=== PATIENT | male | born 1945 | race Caucasian/White ===

== ENCOUNTER → 2018-03-28 07:58 | Outpatient (CLI) | payer MEDICARE, OTHER, SELFPAY ==
--- NOTE | 2018-03-28 10:20 | PM.TREADMILL ---
Cardiac Stress Test Report Referral & Results Date Patient Seen: 03/28/18 Indication: Dizziness Rest ECG: Extended runs of ventricular bigeminy trigeminy as well as multifocal PVCs Procedure Note: After both written and verbal informed consent the patient had an IV started by the diagnostic imaging RN and then was hooked up to the treadmill monitoring system. The patient was placed on the treadmill. Initially a Connor protocol was attempted but patient was unable to keep up and heart rate was not increasing so this was converted to a Lexiscan. The treadmill was adjusted to 1 mile an hour with no elevation and was then injected with the [place] scan material. The Cardiolite was then immediately administered. The patient spent an additional 2-3 minutes on the treadmill before being returned to the [facility] in the supine position. The patient had a normal response to all infused materials. Patient had extended runs of ventricular bigeminy and trigeminy as well as multifocal PVCs and ventricular couplets and triplets and a run of 4. Impression: Dysrhythmia as above Perfusion imaging to be reported separately Please note: Actual ECG tracings can be found in the PACS system.
--- NOTE | 2018-03-31 10:42 | DI.NM.S_ITS ---
DATE OF SERVICE: 03/28/2018 PROCEDURE: Pharmacological perfusion stress study. INDICATIONS: Frequent PVCs with underlying coronary artery disease, status post bypass surgery; hypertension; hyperlipidemia; diabetes mellitus. RADIOPHARMACEUTICAL: 25.6 mCi technetium-99m Myoview IV was injected at stress and 24.6 mCi technetium-99m Myoview IV was injected at rest. CARDIAC STRESS: Patient underwent IV Lexiscan perfusion study under the supervision of an attending staff using standard IV Lexiscan as per protocol. Patient remained hemodynamically stable. Baseline EKG revealed sinus rhythm with intermittent PVCs. During Lexiscan infusion, patient continued to have frequent PVCs in the form of bigeminies, trigeminies, sometimes couplets. It was monomorphic as well as polymorphic. I don't see any sustained ventricular tachycardia. There was some nonspecific ST-T. RAW DATA: There was increased subdiaphragmatic activity. GATED STUDY: Adequate gated study could not be performed. Hence, difficult to comment upon LV function. However, there was no transient ischemic dilatation. TID ratio is 1.04, which is within normal limits. Lung/heart ratio is 0.29, which is within normal limits. MYOCARDIAL PERFUSION SCAN: Stress supine, resting supine, and stress prone images were compared to each other. It appears to be the patient has predominantly fixed [id number]-[id number] sized mildly decreased perfusion of base- to-mid inferolateral wall without any significant reversible ischemia. CONCLUSION: This is an abnormal myocardial perfusion study consistent with [id number] sized mild infarction of base-to-mid inferolateral wall without any reversible ischemia. Patient has frequent premature ventricular contractions (PVCs) which are monomorphic as well as polymorphic without any sustained ventricular tachycardia. Gated images could not be performed. Enio Copeland - ORTEGA/beti/ab doc#: [id number]/job#: [id number] dd: 03/29/2018 12:41:00 dt: 03/31/2018 10:23:00 DICTATING MD/COPIES TO: Car Shaver MD COPIES MNE: RIKKI
== END ==
PROVIDERS: Visit Provider Internal Medicine Cardiovascular Disease
DX: R42 Dizziness and giddiness (principal); I49.3 Ventricular premature depolarization
CPT/HCPCS: 78452; 93016; 93017; 93018; A9502; J2785

== ENCOUNTER → 2018-03-29 09:24 | Outpatient (CLI) | payer MEDICARE, OTHER, SELFPAY ==
--- NOTE | 2018-03-29 | DI.ECHO.S_ITS ---
[facility]---------+ [facility] +---------+ : : [address] : [place] : : : : [id number] : : : : Phone: [phone]+ Echocardiogram Report + + :Name: KEILY LEVY Study Date: 03/29/2018 Height: 70 in : :[facility] Exam Location: IS Weight: 228 lb : : Gender: Male BSA: 2.2 m2 : :: 1945 Age: 72 yrs BP: 132/70 mmHg: :Reason For Study: Dizziness : :Ordering Physician: Sd : :Sivakumar Performed By: Laure Rosario : :Referring: SD FONTENOT : + + Interpretation Summary The left ventricle is mildly dilated. Left ventricular systolic function is normal without focal wall motion abnormalities. The ejection fraction is estimated to be 55-60%. The right ventricle is mildly dilated. The right ventricular systolic function is normal. The right ventricular systolic pressure is estimated at 33 mmHg assuming a right atrial pressure of 8 mm Hg. The left atrium is severely dilated. The right atrium is moderately dilated. There is no significant valvular heart disease. The ascending aorta is mildly enlarged. The patient had frequent PVCs during the exam. Procedure: A two-dimensional transthoracic echocardiogram with color flow and Doppler was performed. The study quality was technically adequate. There is no prior echocardiogram noted for this patient. The patient had frequent PVCs during the exam. Left Ventricle: The left ventricle is mildly dilated. There is mild-moderate concentric left ventricular hypertrophy. Left ventricular systolic function is normal without focal wall motion abnormalities. The ejection fraction is estimated to be 55-60%. Assessment of diastolic parameters indicates normal left ventricular diastolic function and normal filling pressures. Right Ventricle: The right ventricle is mildly dilated. The right ventricular systolic function is normal. Atria: The left atrium is severely dilated. The right atrium is moderately dilated. The interatrial septum is intact with no evidence for an atrial septal defect. Mitral Valve: The mitral valve leaflets appear mildly thickened, but open well. There is trace mitral regurgitation. Aortic Valve: The aortic valve is trileaflet. The aortic valve opens well. There is trace aortic regurgitation. Tricuspid Valve: The tricuspid valve leaflets are thin and pliable. There is mild tricuspid regurgitation. The right ventricular systolic pressure is estimated at 33 mmHg assuming a right atrial pressure of 8 mm Hg. Pulmonic Valve: The pulmonic valve is normal in structure and function. There is a trace or physiologic amount of pulmonic regurgitation. There is no significant valvular heart disease. Great Vessels: The aortic root is normal size. The ascending aorta is mildly enlarged. The IVC is of normal diameter and collapses less than 50% with a sniff. This suggests a right atrial pressure of 8 mm Hg. Pericardium/ Pleura There is no pericardial effusion. There is no pleural effusion. MMode/2D Measurements & Calculations LVIDd: 6.0 cm LVOT diam: 2.3 cm LVIDs: 4.2 cm Ao root diam: 3.2 cm FS: 29.9 % asc Aorta Diam: 3.7 cm EPSS: 1.2 cm Ao Arch Diam (Prox Trans): 2.7 cm IVSd: 1.4 cm LVPWd: 1.6 cm LV carrasquillo. diameter/BSA (cm/m^2): 2.7 LV sys. diameter/BSA (cm/m^2): 1.9 LA A2 area: 26.5 cm2 RA long axis: 5.9 cm LA A4 area: 31.4 cm2 RA area: 21.7 cm2 LA length (vol): 6.1 cm RA vol: 68.1 ml LA vol: 115.8 ml RA : 30.9 ml/m2 LA vol index: 52.5 ml/m2 IVC diam: 2.2 cm RVD1 (basal): 4.2 cm TAPSE: 2.4 cm Doppler Measurements & Calculations Ao V2 max: 134.2 cm/sec LVOT Max Loco: 103.2 cm/sec Ao V2 mean: 88.1 cm/sec LV V1 max P.3 mmHg Ao max P.2 mmHg LV V1 VTI: 21.6 cm Ao mean P.6 mmHg KYLE(I,D): 2.9 cm2 Ao V2 VTI: 29.8 cm KYLE(V,D): 3.1 cm2 sev ratio: 0.72 KYLE indexed to BSA (cm^2/m^2): 1.3 MV E max loco: 58.8 cm/sec TR max loco: 250.3 cm/sec MV A max loco: 43.0 cm/sec TR max P.1 mmHg MV E/A: 1.4 PA V2 max: 74.7 cm/sec Med Peak E' Loco: 4.2 cm/sec PA V2 mean: 53.3 cm/sec E/E' med: 14.0 PA mean P.3 mmHg Lat Peak E' Loco: 13.4 cm/sec PA pr(Accel): 29.1 mmHg E/E' lat: 4.4 E/e' average: 9.2 MV dec time: 0.33 sec Reading Physician:LANNY
== END ==
PROVIDERS: Visit Provider Internal Medicine Cardiovascular Disease
DX: I07.1 Rheumatic tricuspid insufficiency (principal); R42 Dizziness and giddiness
CPT/HCPCS: 93306

== ENCOUNTER → 2018-10-22 10:07 | Outpatient (CLI) | payer MEDICARE, OTHER, SELFPAY ==
[2018-10-22 12:40] LABS: BUN Creatinine Ratio 19.1 (6-22); Blood Urea Nitrogen 21 mg/dL (9-20); Calcium 10.1 mg/dL (8.4-10.2); Carbon Dioxide 30 mmol/L (22-32); Chloride 100 mmol/L (98-107); Estimated Glomerular Filt Rate > 60.0 mL/min (>60); Glucose 111 mg/dL (80-110); HEMOLYSIS < 15 (0-50); Potassium 4.9 mmol/L (3.4-5.1); Sodium 142 mmol/L (137-145)
== END ==
PROVIDERS: Visit Provider Internal Medicine Cardiovascular Disease
DX: I10 Essential (primary) hypertension (principal)
CPT/HCPCS: 36415; 80048

== ENCOUNTER → 2019-02-13 07:27 | Outpatient (CLI) | payer MEDICARE, OTHER, SELFPAY ==
--- NOTE | 2019-02-13 07:32 | DI.MRI.S_ITS ---
PROCEDURE: MR LUMBAR SPINE WO CON INDICATIONS: axial low back pain with leg pain TECHNIQUE: Noncontrast sagittal T1 spin echo and T2 fast echo, sagittal STIR, axial T1 and T2 fast spin echo through the lumbar spine. In cases with scoliosis, additional coronal T2 fast spin echo may be performed. COMPARISON: [facility] Outside Film, MR, MR LUMBAR SPINE WITHOUT CONTRAST, 10/29/2017, 11:01. FINDINGS: Image quality: Excellent. Alignment and Curvature: There is trace retrolisthesis of L1 on L2, L2 on L3, trace anterolisthesis of L3 on L4. Bone Marrow: Marrow is of normal overall signal. Moderate reactive endplate changes are present at L1-L2. Focus of increased T1 and T2 signal is present within the L4 vertebral body most suggestive of hemangioma. No acute vertebral body compression fractures. Spinal Cord: Conus medullaris terminates at the L1 level. Visualized cord demonstrates normal signal and size. Paraspinous Soft Tissues: No paravertebral masses. Discs: Severe desiccation is present at L1-L2, mild to moderate throughout the remainder of the lumbar spine. T12-L1: Mild disc bulge with minimal compromise of the right lateral recess. Moderate right foraminal narrowing. L1-L2: Mild disc bulge including a prominent left lateral and foraminal component. There is moderate spinal stenosis with moderate bilateral foraminal narrowing. Facet and ligamentum flavum hypertrophy are present. Minimal interval progression. L2-L3: Mild disc bulge with mild spinal stenosis. Moderate to severe left and moderate right foraminal narrowing with facet and ligamentum flavum hypertrophy. Minimal interval progression. L3-L4: Mild disc bulge with moderate to severe spinal stenosis. Severe bilateral foraminal narrowing with facet and ligamentum flavum hypertrophy. Stable compared to prior exam. L4-L5: Mild disc bulge with moderate to severe spinal stenosis. There is severe bilateral foraminal narrowing with nerve root flattening particularly within the subarticular recesses, left greater than right. Facet and ligamentum flavum hypertrophy are present. Stable compared to prior exam. L5-S1: Mild disc bulge with moderate spinal stenosis. Moderate to severe right and mild left foraminal narrowing with facet and ligamentum flavum hypertrophy. Minimal interval progression. IMPRESSION: 1. Multilevel degenerative changes demonstrate areas of interval progression as above. 2. Multilevel spinal stenosis most severe at L3-4 and L4-5 secondary to disc bulge with intravenous facet/ligament flavum arthropathy. 3. Multilevel foraminal narrowing, most severe at L3-4 and L4-5 predominant secondary to facet arthropathy. Dictated by: Alma Pham M.D. on 02/13/2019 at 11:43 Approved by: Alma Pham M.D. on 02/13/2019 at 11:54
== END ==
PROVIDERS: PCP Nurse Practitioner; Visit Provider Registered Nurse
DX: M54.5 Low back pain (principal); M79.605 Pain in left leg; M79.604 Pain in right leg; M47.26 Other spondylosis with radiculopathy, lumbar region; M47.27 Other spondylosis with radiculopathy, lumbosacral region; M48.061 Spinal stenosis, lumbar region without neurogenic claudication; M48.07 Spinal stenosis, lumbosacral region; M51.16 Intervertebral disc disorders with radiculopathy, lumbar region; M51.17 Intervertebral disc disorders with radiculopathy, lumbosacral region
CPT/HCPCS: 72148

== ENCOUNTER 2019-02-18 07:55 | Outpatient (CLI) | payer MEDICARE, OTHER, SELFPAY ==
[2019-02-18] VITALS (9 sets, daily range): BP systolic 125–184; BP diastolic 65–109; PULSE 60–94; RESP 16–18; TEMP 36.5; O2SAT 95–100
--- NOTE | 2019-02-18 07:58 | DI.RAD.S_ITS ---
PROCEDURE: PAIN L/SI FACET INJ/BLK 1STL INDICATIONS: 31098, [id number] Bilateral L4/5, L5/S1 Facet Joint Injection FINDINGS: Fluoroscopic spot filming was performed to verify placement of spinal needles at the L4-L5 and L5-S1 level(s). Appropriate location(s) of the needle tip(s) was confirmed by injection of iodinated contrast. Dictated by: Navjot Bird M.D. on 02/18/2019 at 11:57 Approved by: Navjot Bird M.D. on 02/18/2019 at 12:00
[2019-02-18] MEDS: MIDAZOLAM 5 MG/5 ML VIAL IV (09:24)
[2019-02-18] MEDS: fentaNYL 100 MCG/2 ML INJ 50 MCG IV (09:25)
[2019-02-18] MEDS: BUPIVACAINE 0.5% (PF) VIAL 2 ML INJ (09:31)
[2019-02-18] MEDS: IOPAMIDOL 15 ML VIAL 3 ML INJ (09:33)
[2019-02-18] MEDS: BETAMETHASONE 30 MG/5 ML MDV 12 MG INJ (09:34)
--- NOTE | 2019-02-18 09:37 | PC.NURSE ---
ASSISTING PT OFF TABLE AND TRANSPORITNG TO POST PROC AREA IN STABLE CONDITION
--- NOTE | 2019-02-18 09:44 | PM.PROC.1 ---
Procedures Date/Time Date of procedure: 02/18/19 Time of procedure: 09:44 General Procedure description: PREOP DIAGNOSIS 1. FACET ARTHROPATHY 2. AXIAL LBP 3. MULTILEVEL DDD POST OP DIAGNOSIS 1. FACET ARTHROPATHY 2. AXIAL LBP 3. MULTILEVEL DDD PROCEDURES 1. FLUORSCOPICALLY GUIDED CONTRAST CONTROLLED FACET JOINT INJECTIONS BILATERAL L4/5, L5/S1 PHYSICIAN: Dave Castorena, DO INDICATIONS Enio is referred by DEEDEE Marquis for treatment of Axial LBP FINDINGS Multilevel Facet Arthropathy with Clinically significant axial LBP DESCRIPTION OF PROCEDURE Fluoroscopically guided, contrast-controlled bilateral L4/5, L5/S1 facet joint injections. Following review of allergy and review of potential side effects and complications, including, but not necessarily limited to, infection, allergic reaction, local tissue breakdown, stroke, temporary or permanent nerve injury, paralysis, and possible , the patient indicated that the patient understood and agreed to proceed. An informed consent document was signed by the patient, witnessed by a nurse, and placed in the patient's chart. Additionally, other treatment options including medications, modalities, and physical therapy were reviewed with the patient. After review of previous anaesthesic history and IV conscious sedation the patient was deemed safe to proceed with todays procedure with IV conscious sedation as ASA class II designation. Safety time-out was performed to confirm patient ID, procedure to be performed and site of procedure. IV sedation was accomplished with a combination of 2mg of Versed and 50mcg of Fentanyl was administered by the RN after DO order, titrated to patient comfort during the course of the procedure while the patient remained responsive to all verbal commands In the prone position, following sterile prep and drape of the lumbar region, the posterior aspect of the L4/5, L5/S1 facet joints were identified fluoroscopically. The skin was anesthetized via a 25-gauge 1.5-inch needle with 1% lidocaine solution into the corresponding facet joints. At this point, a 22-gauge 3.5-inch spinal needle was atraumatically introduced and advanced under fluoroscopic guidance into the corresponding facet joints. Following negative aspiration, injections of approximately 0.2-cc of Isovue 200 confirmed interarticular placement without vascular uptake. The identical procedure was then performed at the L4/5, L5/S1 facet joints on the left. Radiological data, including multiple fluoroscopic views of the lumbosacral spine, reveal a spinal needle at the L4/5, L5/S1 facet joints bilaterally. Subsequent views show flow of contrast material both superiorly and inferiorly within the joint space without vascular or intrathecal uptake. At this point, a total of 0.5 cc including a mixture of 0.25cc Marcaine and 0.25cc betamethasone was injected without complication into each of the corresponding facet joints. The patient tolerated the procedure well without signs or symptoms of complications prior to transfer to the recovery area continued monitoring without incident. The patient was then transferred to the recovery area where they were observed for an appropriate period of time after the injection. The patient reported a VAS score of 7 prior to the procedure and a post-procedure VAS of 0. Total Fluoroscopy Time: 20.3 seconds Total Conscious Sedation Time: 24min POST OP INSTRUCTIONS The patient was provided a Pain Log to continue to record their response to the target-specific procedure prior to follow-up visit with their referring physician. Additionally, specific post-injection care instructions and a contact number to our office were provided if concerns arise regarding possible complications associated with the procedure are suspected. Dave Castorena DO Complications: none
--- NOTE | 2019-02-18 09:45 | PC.NURSE ---
Pt returned awake and alert via wheelchair, able to get from w/c to chair with standby assist. Resumed monitoring from Tameka LUEVANO.
--- NOTE | 2019-02-18 09:47 | P.PCN_ITS ---
Procedures Date/Time Date of procedure: 02/18/19 Time of procedure: 09:44 General Procedure description: PREOP DIAGNOSIS 1. FACET ARTHROPATHY 2. AXIAL LBP 3. MULTILEVEL DDD POST OP DIAGNOSIS 1. FACET ARTHROPATHY 2. AXIAL LBP 3. MULTILEVEL DDD PROCEDURES 1. FLUORSCOPICALLY GUIDED CONTRAST CONTROLLED FACET JOINT INJECTIONS BILATERAL L4/5, L5/S1 PHYSICIAN: Dave Castorena, DO INDICATIONS Enio is referred by DEEDEE Marquis for treatment of Axial LBP FINDINGS Multilevel Facet Arthropathy with Clinically significant axial LBP DESCRIPTION OF PROCEDURE Fluoroscopically guided, contrast-controlled bilateral L4/5, L5/S1 facet joint injections. Following review of allergy and review of potential side effects and complications, including, but not necessarily limited to, infection, allergic reaction, local tissue breakdown, stroke, temporary or permanent nerve injury, paralysis, and possible , the patient indicated that the patient understood and agreed to proceed. An informed consent document was signed by the patient, witnessed by a nurse, and placed in the patient's chart. Additionally, other treatment options including medications, modalities, and physical therapy were reviewed with the patient. After review of previous anaesthesic history and IV conscious sedation the patient was deemed safe to proceed with todays procedure with IV conscious sedation as ASA class II designation. Safety time-out was performed to confirm patient ID, procedure to be performed and site of procedure. IV sedation was accomplished with a combination of 2mg of Versed and 50mcg of Fentanyl was administered by the RN after DO order, titrated to patient comfort during the course of the procedure while the patient remained responsive to all verbal commands In the prone position, following sterile prep and drape of the lumbar region, the posterior aspect of the L4/5, L5/S1 facet joints were identified fluoroscopically. The skin was anesthetized via a 25-gauge 1.5-inch needle with 1% lidocaine solution into the corresponding facet joints. At this point, a 22- gauge 3.5-inch spinal needle was atraumatically introduced and advanced under fluoroscopic guidance into the corresponding facet joints. Following negative a spiration, injections of approximately 0.2-cc of Isovue 200 confirmed interarticular placement without vascular uptake. The identical procedure was then performed at the L4/5, L5/S1 facet joints on the left. Radiological data, including multiple fluoroscopic views of the lumbosacral spine, reveal a spinal needle at the L4/5, L5/S1 facet joints bilaterally. Subsequent views show flow of contrast material both superiorly and inferiorly within the joint space without vascular or intrathecal uptake. At this point, a total of 0.5 cc including a mixture of 0.25cc Marcaine and 0.25cc betamethasone was injected without complication into each of the corresponding facet joints. The patient tolerated the procedure well without signs or symptoms of complications prior to transfer to the recovery area continued monitoring without incident. The patient was then transferred to the recovery area where they were observed for an appropriate period of time after the injection. The patient reported a VAS score of 7 prior to the procedure and a post- procedure VAS of 0. Total Fluoroscopy Time: 20.3 seconds Total Conscious Sedation Time: 24min POST OP INSTRUCTIONS The patient was provided a Pain Log to continue to record their response to the target-specific procedure prior to follow-up visit with their referring physician. Additionally, specific post-injection care instructions and a contact number to our office were provided if concerns arise regarding possible complications associated with the procedure are suspected. Dave Castorena DO Complications: none
== END 2019-02-18 10:14 ==
PROVIDERS: PCP Nurse Practitioner; Visit Provider Physical Medicine & Rehabilitation
DX: M47.817 Spondylosis without myelopathy or radiculopathy, lumbosacral region (principal); M47.816 Spondylosis without myelopathy or radiculopathy, lumbar region; M54.5 Low back pain; M51.36 Other intervertebral disc degeneration, lumbar region; M51.37 Other intervertebral disc degeneration, lumbosacral region
CPT/HCPCS: 64493; 64494; 99152; 99153; J0702; J2250; J3010

== ENCOUNTER 2019-06-19 08:00 | Outpatient (CLI) | payer MEDICARE, OTHER, SELFPAY ==
[2019-06-19] VITALS (7 sets, daily range): BP systolic 86–150; BP diastolic 46–98; PULSE 53–84; RESP 16–18; TEMP 36.1; O2SAT 95–100
--- NOTE | 2019-06-19 08:02 | DI.RAD.S_ITS ---
PROCEDURE: PAIN L/S FACET INJ/BLK 1ST YANETH COMPARISON: None. INDICATIONS: SPONDYLOSIS FINDINGS: 6 intraoperative fluoroscopy images demonstrate needle placement at L3 and L4, L5 and S1 bilaterally. IMPRESSION: Fluoroscopy assistance for needle placement. Dictated by: Elmer Earl M.D. on 06/19/2019 at 17:39 Approved by: Elmer Earl M.D. on 06/19/2019 at 17:41
[2019-06-19] MEDS: MIDAZOLAM 5 MG/5 ML VIAL IV (10:10)
[2019-06-19] MEDS: fentaNYL 100 MCG/2 ML INJ 50 MCG IV (10:11)
[2019-06-19] MEDS: IOPAMIDOL 15 ML VIAL 3 ML INJ (10:17)
[2019-06-19] MEDS: LIDOCAINE 1% 20 ML 10 ML INJ (10:17)
[2019-06-19] MEDS: BETAMETHASONE 30 MG/5 ML MDV 12 MG INJ (10:18)
[2019-06-19] MEDS: BUPIVACAINE 0.5% (PF) VIAL 5 ML INJ (10:18)
--- NOTE | 2019-06-19 10:23 | PC.NURSE ---
AWARE OF LOW BP. PT STATES I FEEL FINE. WILL REPEAT BP BEFORE HAVING PT STEP OFF PROC TABLE.
--- NOTE | 2019-06-19 10:30 | PM.PROC.1 ---
Procedures Date/Time Date of procedure: 06/19/19 Time of procedure: 10:30 General Procedure description: Procedure description: 1. FACET ARTHROPATHY PROCEDURES: 1. BILATERAL- L4, L5 and S1 MB BLOCKS PHYSICIAN: DO SANTIAGO Membreno Enio is referred by DEEDEE Marquis for treatment of Bilateral Axial LBP. DESCRIPTION OF PROCEDURE Fluoroscopically guided, contrast-controlled bilateral L4, L5 and S1 medial branch blocks with 0.5cc of 0.5% Marcaine. Following review of allergy and review of potential side effects and complications, including, but not necessarily limited to, infection, allergic reaction, local tissue breakdown, nerve injury, paralysis, stroke and possible , the patient indicated that the patient understood and agreed to proceed. An informed consent document was signed by the patient, witnessed by a nurse, and placed in the patient's chart. After review of previous anaesthesic history and IV conscious sedation the patient was deemed safe to proceed with todays procedure with IV conscious sedation as ASA class II designation. Safety time-out was performed to confirm patient ID, procedure to be performed and site of procedure. IV sedation was accomplished with a combination of 2mg of Versed and 50mcg of Fentanyl was administered by the RN after DO order, titrated to patient comfort during the course of the procedure while the patient remained responsive to all verbal commands In the prone position, following sterile prep and drape of the lumbar region, the right L4, L5 and S1 anatomical location of the medial branch of the dorsal ramus was identified fluoroscopically. Subsequently an anesthetic skin wheal using 1% lidocaine solution was initiated at each of the anatomical spots. Subsequently then a 22-gauge 3.5-inch spinal needle was atraumatically introduced and advanced under fluoroscopic guidance at each of the corresponding sites at the right L4, L5 and S1 MB. After negative aspiration, 0.2 cc of Isovue 200 was injected, confirming placement without vascular or intrathecal uptake. Subsequently then 0.5 cc of 0.5% Marcaine solution was injected at each of the corresponding sites at the right L4, L5 and S1 medial branch locations. The identical procedure was replicated on the left. The patient tolerated the procedure well without signs or symptoms of complications prior to transfer to the recovery area continued monitoring without incident. Post-procedure, the patient was monitored initiating provocative activities to measure the amount of relief from block of the facetogenic pain. The patient reported a VAS of 7 prior to the procedure and a post-procedure VAS of 1. It has been a pleasure to assist in the diagnostic and therapeutic care of your patient. Total Fluoroscopy Time: 24.8 seconds Total Conscious Sedation Time: 24min POST OP INSTRUCTIONS The patient was provided with a Pain Log to complete over the next several hours and subsequent days prior to the patient's follow up with the ordering physician. If the patient has blind eyeletter relief to the solution applied, then they may be a candidate for medial branch rhizotomy. The patient is aware, was provided, once again, with a Pain Log and will follow up with the referring physician for review and clinical correlation Dave Castorena DO Complications: none
--- NOTE | 2019-06-19 10:30 | PC.NURSE ---
BP AFTER PROC WHILE STILL SITTING ON TABLE 106/67 AND PT A&OX4. TRANSPORTIJG TO POST PROC ARE IN STABLE CONDITION.
--- NOTE | 2019-06-19 17:52 | PC.NURSE ---
Late entry: discharge note--Patient arrived for post procedure monitoring. VSS and O2 Sat WNL on RA. No complaints of pain. 0. Discharge instructions reviewed with good understanding by patient and spouse. Able to stand and transfer to wheelchair without difficulties. Discharged to home w/c to car at 1050
== END 2019-06-19 10:50 ==
LOC: RAD 08:01
PROVIDERS: PCP Nurse Practitioner; Visit Provider Physical Medicine & Rehabilitation
DX: M47.816 Spondylosis without myelopathy or radiculopathy, lumbar region (principal); M47.817 Spondylosis without myelopathy or radiculopathy, lumbosacral region; M54.5 Low back pain
CPT/HCPCS: 64493; 64494; 99152; J0702; J2250; J3010

== ENCOUNTER 2019-08-19 10:51 | Outpatient (CLI) | payer MEDICARE, OTHER, SELFPAY ==
[2019-08-19] VITALS (12 sets, daily range): BP systolic 101–144; BP diastolic 58–98; PULSE 58–97; RESP 16; TEMP 36.4; O2SAT 93–99
--- NOTE | 2019-08-19 10:52 | DI.RAD.S_ITS ---
PROCEDURE: PAIN L/S MED/LAT N RFA BILAT INDICATIONS: SPONDYLOSIS FINDINGS: Fluoroscopic spot filming was performed to verify placement of spinal needles at the L4, L5 and S1 level(s), as labeled on the films. Appropriate location(s) of the needle tip(s) was confirmed by injection of iodinated contrast. There is trace anterolisthesis of L4 on L5 and trace retrolisthesis of L5 on S1. IMPRESSION: Needle placement at L4, L5 and S1 as above. Dictated by: Alma Pham M.D. on 08/19/2019 at 17:04 Approved by: Alma Pham M.D. on 08/19/2019 at 17:05
--- NOTE | 2019-08-19 12:04 | PC.NURSE ---
NOTIFIED OF 3RD DEGREE HEART BLOCK. NO NEW ORDERS AT THIS TIME. DR JOSHI DECIDED IT WAS SAFE TO CONTINUE. PT HAS HX OF CABGX4. ALL OTHER VSS, PT A&OX4 AND DENIES CARDIAC CONCERNS.
[2019-08-19] MEDS: fentaNYL 100 MCG/2 ML INJ 50 MCG IV (12:06)
[2019-08-19] MEDS: MIDAZOLAM 5 MG/5 ML VIAL IV (12:06)
[2019-08-19] MEDS: BUPIVACAINE 0.5% (PF) VIAL 5 ML INJ (12:20)
[2019-08-19] MEDS: LIDOCAINE 1% 20 ML 10 ML INJ (12:20)
--- NOTE | 2019-08-19 12:46 | P.PCN_ITS ---
Procedures Date/Time Date of procedure: 08/19/19 Time of procedure: 12:46 General Procedure description: PREOP DIAGNOSIS 1. RECALCITRANT FACET ARTHROPATHY, POST OP DIAGNOSIS 1. RECALCITRANT FACET ARTHROPATHY PROCEDURES 1. BILATERAL L4 AND L5 MEDIAL BRANCH RADIOFREQUENCY NEUROTOMY AND S1 DORSAL RAMUS BRANCH RADIOFREQUENCY NEUROTOMY, PHYSICIAN: Dave Castorena DO INDICATIONS: Enio is referred by DEEDEE Marquis for treatment of facet arthropathy. DESCRIPTION OF PROCEDURE Bilateral L4 and L5 medial branch radiofrequency neurotomy and right S1 dorsal ramus radiofrequency neurotomy under fluoroscopy with conscious sedation. The patient is well known to this clinic having undergone previous facet interventions with good but temporary relief. The patient has experienced appropriate, concordant relief with previous facet and median branch blocks but the patient's pain has been recalcitrant to further conservative measures. Therefore, based upon the patient's relief and persistent symptoms, the patient is considered an appropriate candidate for facet rhizotomy. All of the patient's questions regarding the risks versus benefits of the procedure, including, but not limited to, bleeding, infection, temporary as well as lasting nerve injury, paralysis, stroke, and , as well treatment alternatives were answered to satisfaction. After obtaining informed consent, denial of pertinent drug allergies, as well as being made aware of the potential risks of bleeding, infection, spinal cord trauma, paralysis, temporary and permanent nerve damage, seizure, stroke, and possible , the patient was brought to the fluoroscopy suite and positioned prone on the fluoroscopy table. The lumbar region was prepped with Betadine and covered with a fenestrated drape in the usual sterile fashion. Appropriate monitors applied including pulse oximeter, pulse, and blood pressure for regular monitoring throughout the procedure. After review of previous anaesthesic history and IV conscious sedation the patient was deemed safe to proceed with todays procedure with IV conscious sedation as ASA class II designation. Safety time-out was performed to confirm patient ID, procedure to be performed and site of procedure. IV sedation was accomplished with a combination of 3mg of Versed and 50mcg of Fentanyl administered by the RN after DO order, titrated to patient comfort during the course of the procedure while the patient remained responsive to all verbal commands. After local infiltration using 1% lidocaine, under fluoroscopic guidance, a 10- cm RF insulated needle with a 10-mm active tip was positioned parallel to the junction of the right sacral ala and the superior articulating process where the S1 dorsal ramus resides. Needle placement was confirmed with motor stimulation of .5v on the right which produced local stimulation without radicular component. The stimulation was then increased to 1.5v with, once again, only local multifidus stimulation without radicular component. The needle was then removed and the identical procedure was performed along the length of the right L5 medial branch with motor stimulation at .7v on the right. The identical procedure was once again performed along the length of the right L4 medial branch with motor stimulation of .5v on the right. The medial branches were then anesthetised with 0.5% Marcaine. This was then followed by two discreet lesions performed at 80 degrees Celsius for 90 seconds each. The identical procedure was repeated on the left. The patient tolerated the procedure well without signs or symptoms of complications prior to transfer to the recovery area continued monitoring without incident. The patient was then transferred to the recovery area where they were observed for an appropriate period of time after the injection. The patient reported a VAS score of 9 prior to the procedure and a post-procedure VAS of 0. Total Fluoroscopy Time: 22.7 seconds Total Conscious Sedation Time: 34min POST OP INSTRUCTIONS The patient was provided a Pain Log to continue to record the patient's response to the target-specific procedure prior to the patient's follow-up visit with the referring physician. Additionally, specific post-injection care instructions and a contact number to our office were provided if concerns arise regarding possible complications associated with the procedure are suspected. Dave Castorena DO Complications: none
== END 2019-08-19 13:15 | disposition home or self-care (01) ==
LOC: RAD 10:52
PROVIDERS: PCP Nurse Practitioner; Visit Provider Physical Medicine & Rehabilitation
DX: M47.817 Spondylosis without myelopathy or radiculopathy, lumbosacral region (principal); M47.816 Spondylosis without myelopathy or radiculopathy, lumbar region
CPT/HCPCS: 64635; 64636; 99152; 99153; J2250; J3010

== ENCOUNTER → 2021-04-11 08:07 | Outpatient (CLI) | payer MEDICARE, OTHER, SELFPAY ==
[2021-04-11 14:09] LABS: COVID19 -Nasal RAPID Negative (Negative)
== END ==
PROVIDERS: PCP Nurse Practitioner; Visit Provider Physical Medicine & Rehabilitation
DX: Z20.822 Contact with and (suspected) exposure to COVID-19 (principal)
CPT/HCPCS: 87635; C9803

== ENCOUNTER 2021-04-12 07:24 | Outpatient (CLI) | payer MEDICARE, OTHER, SELFPAY ==
[2021-04-12] VITALS (8 sets, daily range): BP systolic 126–172; BP diastolic 60–82; PULSE 50–70; RESP 12–18; TEMP 36.4; O2SAT 94–100
--- NOTE | 2021-04-12 07:27 | DI.RAD.S_ITS ---
PROCEDURE: PAIN L INTERLAMINAR/CAUDAL INJ INDICATIONS: SPONDYLOSIS COMPARISON: [facility], , PAIN L/S MED/LAT N RFA BILAT, 08/19/2019, 12:03. FINDINGS: Fluoroscopic spot filming was performed to verify placement of a spinal needle at the L1-L2 level, as labeled on the films. Appropriate location of the needle tip was confirmed by injection of iodinated contrast. IMPRESSION: Intraprocedural examination within normal limits. Dictated by: Bryce Stevens M.D. on 04/12/2021 at 9:49 Approved by: Bryce Stevens M.D. on 04/12/2021 at 9:50
[2021-04-12] MEDS: MIDAZOLAM 5 MG/5 ML VIAL IV (08:21)
[2021-04-12] MEDS: IOPAMIDOL 15 ML VIAL 3 ML INJ (08:29)
[2021-04-12] MEDS: BETAMETHASONE 30 MG/5 ML MDV 6 MG INJ (08:30)
[2021-04-12] MEDS: BUPIVACAINE 0.25% (PF) VIAL 2 ML INJ (08:30)
[2021-04-12] MEDS: DEXAMETHASONE 10 MG/ML VIAL 20 MG INJ (08:30)
--- NOTE | 2021-04-18 16:48 | P.PCN_ITS ---
Date/Time/Diagnoses Date of procedure: 04/12/21 Time of procedure: 08:20 Pre-procedure diagnosis: 1. HNP WITH RADICULAR FEATURES, 2. MULTILEVEL CENTRAL STENOSIS, Post-procedure diagnosis: same Procedure Notes Procedure: 1. FLUOROSCOPICALLY GUIDED CONTRAST CONTROLLED INTERLAMINAR EPIDURAL STEROID INJECTION - L1/2 Indications: Enio is referred by DEEDEE Marquis for treatment of Bilateral Foraminal Stenosis L>R LE symptoms. Physician: Dave Castorena Total Fluoroscopy time (seconds): 7 Total sedation minutes: 12 Complications: none Procedure in detail & Post-procedure care: FINDINGS Multilevel Central Spinal Stenosis with Nerve Root Compression DESCRIPTION OF PROCEDURE Fluoroscopically guided, contrast-controlled L1/2 translaminar epidural steroid injection. Following review of allergy and review of potential side effects and complications, including, but not necessarily limited to, infection, allergic reaction, local tissue breakdown, temporary as well as permanent nerve injury, paralysis, stroke and possible , the patient indicated that the patient understood and agreed to proceed. An informed consent document was signed by the patient, witnessed by a nurse, and placed in the patient's chart. Additionally, other treatment options including modalities, medications, and physical therapy were reviewed with the patient. After review of previous anaesthesic history and IV conscious sedation the patient was deemed safe to proceed with todays procedure with IV conscious sedation as ASA class II designation. Safety time-out was performed to confirm patient ID, procedure to be performed and site of procedure. IV sedation was accomplished with a combination of 2mg of Versed was administered by the RN after DO order, titrated to patient comfort during the course of the procedure while the patient remained responsive to all verbal commands In the prone position, following sterile prep and drape of the lumbar region, the L1/2 translaminar space was identified fluoroscopically. The skin was anesthetized via a 25-gauge, 1.5-inch needle with 1% lidocaine solution. At this point, a 22-gauge short bevel spinal needle was atraumatically introduced and advanced under fluoroscopic guidance into the region of the L1/2 translaminar space. Depth was confirmed on lateral view. Radiological data, including multiple fluoroscopic views of the lumbar spine, reveal a spinal needle at the L1/2 translaminar space. Lateral views then show placement of the needle in the epidural space. Subsequent views show contrast material flowing superiorly and inferiorly in the epidural space. No vascular or intrathecal uptake is observed. At this point, using loss of resistance technique with saline and air, the epidural space was entered. This was confirmed following negative aspiration with injection of approximately 1.5 cc of Isovue 200, showing excellent epidural flow without vascular or intrathecal uptake. At this point, 1 cc of 1% lidocaine solution combined with 3cc or 20mg of dexamethasone and 6mg of betamethasone was injected without incident. The patient tolerated the procedure well without signs or symptoms of complications prior to transfer to the recovery area continued monitoring without incident. The patient was then transferred to the recovery area where they were observed for an appropriate period of time after the injection. The patient reported a VAS score of 6 prior to the procedure and a post- procedure VAS of 0. POST OP INSTRUCTIONS The patient was provided a Pain Log to continue to record their response to the target-specific procedure prior to follow-up visit with their referring physician. Additionally, specific post-injection care instructions and a contact number to our office were provided if concerns arise regarding possible complications associated with the procedure are suspected.
== END 2021-04-12 09:00 | disposition home or self-care (01) ==
LOC: RAD 07:26
PROVIDERS: PCP Nurse Practitioner; Referring Provider Physical Medicine & Rehabilitation; Visit Provider Physical Medicine & Rehabilitation
DX: M51.16 Intervertebral disc disorders with radiculopathy, lumbar region (principal); M48.061 Spinal stenosis, lumbar region without neurogenic claudication
CPT/HCPCS: 62323; 99152; J0702; J1100; J2250; J3010

== ENCOUNTER → 2021-05-25 08:12 | Outpatient (CLI) | payer MEDICARE, OTHER, SELFPAY ==
--- NOTE | 2021-05-25 08:13 | DI.RAD.S_ITS ---
PROCEDURE: XR LUMBAR SPINE MIN 4V INDICATIONS: BACK PAIN TECHNIQUE: 5 views of the lumbar spine were acquired, including bilateral oblique views. COMPARISON: None. FINDINGS: Bones: 5 nonrib-bearing vertebrae are present. There is normal bony alignment. No vertebral body compression fractures. No suspicious bony lesions. There are multilevel degenerative changes. There is mild leftward curvature of the thoracolumbar spine. The sacroiliac joints are normal. There is disc space narrowing at L1-2 with severe endplate degenerative changes and disc osteophytes. Soft tissues: Overlying bowel gas pattern is normal. No suspicious soft tissue calcifications. Status post cholecystectomy. The aorta has atherosclerotic calcifications. Oblique images: No pars defects. IMPRESSION: 1. Multilevel lumbar spondylosis. 2. Leftward curvature of the upper lumbar spine. 3. Facet arthrosis in the lower lumbar spine. 4. Degenerative disc disease most severe at L1-2 with disc osteophytes causing foraminal stenosis. Dictated by: Raad Lorenzo M.D. on 05/25/2021 at 9:55 Approved by: Raad Lorenzo M.D. on 05/25/2021 at 9:57
== END ==
PROVIDERS: PCP Nurse Practitioner; Referring Provider Physical Medicine & Rehabilitation; Visit Provider Physical Medicine & Rehabilitation
DX: M51.16 Intervertebral disc disorders with radiculopathy, lumbar region (principal); M47.27 Other spondylosis with radiculopathy, lumbosacral region; M47.26 Other spondylosis with radiculopathy, lumbar region; M48.061 Spinal stenosis, lumbar region without neurogenic claudication; M43.8X6 Other specified deforming dorsopathies, lumbar region; M43.16 Spondylolisthesis, lumbar region; I10 Essential (primary) hypertension; Z95.1 Presence of aortocoronary bypass graft
CPT/HCPCS: 72110; 99214

== ENCOUNTER → 2021-05-30 10:02 | Outpatient (CLI) | payer MEDICARE, OTHER, SELFPAY ==
[2021-05-30 14:10] LABS: COVID19 -Nasal RAPID Negative (Negative)
== END ==
PROVIDERS: PCP Nurse Practitioner; Visit Provider Physical Medicine & Rehabilitation
DX: Z20.822 Contact with and (suspected) exposure to COVID-19 (principal)
CPT/HCPCS: 87635; C9803

== ENCOUNTER 2021-05-31 13:33 | Outpatient (CLI) | payer MEDICARE, OTHER, SELFPAY ==
[2021-05-31] VITALS (7 sets, daily range): BP systolic 143–199; BP diastolic 81–93; PULSE 57–65; RESP 14–22; TEMP 36.5; O2SAT 95–96
--- NOTE | 2021-05-31 13:34 | DI.RAD.S_ITS ---
PROCEDURE: PAIN L INTERLAMINAR/CAUDAL INJ INDICATIONS: SPONDYLOSIS COMPARISON: [facility], , PAIN L INTERLAMINAR/CAUDAL INJ, 04/12/2021, 8:27. FINDINGS: Fluoroscopic spot filming was performed to verify placement of a spinal needle at the L4-L5 level, as labeled on the films. Appropriate location of the needle tip was confirmed by injection of iodinated contrast. IMPRESSION: Intraprocedural examination within normal limits. Dictated by: Bryce Stevens M.D. on 05/31/2021 at 14:00 Approved by: Bryce Stevens M.D. on 05/31/2021 at 14:01
[2021-05-31] MEDS: MIDAZOLAM 5 MG/5 ML VIAL IV (14:25)
[2021-05-31] MEDS: IOPAMIDOL 15 ML VIAL 3 ML INJ (14:33)
[2021-05-31] MEDS: BUPIVACAINE 0.25% (PF) VIAL 2 ML INJ (14:33)
[2021-05-31] MEDS: DEXAMETHASONE 10 MG/ML VIAL 20 MG INJ (14:34)
[2021-05-31] MEDS: BETAMETHASONE 30 MG/5 ML MDV 12 MG INJ (14:34)
--- NOTE | 2021-05-31 14:41 | P.PCN_ITS ---
Date/Time/Diagnoses Date of procedure: 05/31/21 Time of procedure: 14:42 Pre-procedure diagnosis: 1. HNP WITH RADICULAR FEATURES, 2. MULTILEVEL CENTRAL STENOSIS, Post-procedure diagnosis: same Procedure Notes Procedure: 1. FLUOROSCOPICALLY GUIDED CONTRAST CONTROLLED INTERLAMINAR EPIDURAL STEROID INJECTION -L4/5 Indications: Enio is referred by DEEDEE Marquis for treatment of Bilateral Foraminal Stenosis R>L LE symptoms. Physician: Dave Castorena Total Fluoroscopy time (seconds): 6 Total sedation minutes: 11 Complications: none Procedure in detail & Post-procedure care: FINDINGS Multilevel Central Spinal Stenosis with Nerve Root Compression DESCRIPTION OF PROCEDURE Fluoroscopically guided, contrast-controlled L4/5 translaminar epidural steroid injection. Following review of allergy and review of potential side effects and complications, including, but not necessarily limited to, infection, allergic reaction, local tissue breakdown, temporary as well as permanent nerve injury, paralysis, stroke and possible , the patient indicated that the patient understood and agreed to proceed. An informed consent document was signed by the patient, witnessed by a nurse, and placed in the patient's chart. Additionally, other treatment options including modalities, medications, and physical therapy were reviewed with the patient. After review of previous anaesthesic history and IV conscious sedation the patient was deemed safe to proceed with today?s procedure with IV conscious sedation as ASA class II designation. Safety time-out was performed to confirm patient ID, procedure to be performed and site of procedure. IV sedation was accomplished with a combination of 2mg of Versed was administered by the RN after DO order, titrated to patient comfort during the course of the procedure while the patient remained responsive to all verbal commands In the prone position, following sterile prep and drape of the lumbar region, the L4/5 translaminar space was identified fluoroscopically. The skin was anesthetized via a 25-gauge, 1.5inch needle with 1% lidocaine solution. At this point, a 22-gauge short bevel spinal needle was atraumatically introduced and advanced under fluoroscopic guidance into the region of the L4/5 translaminar space. Depth was confirmed on lateral view. Radiological data, including multiple fluoroscopic views of the lumbar spine, reveal a spinal needle at the L4/5 translaminar space. Lateral views then show placement of the needle in the epidural space. Subsequent views show contrast material flowing superiorly and inferiorly in the epidural space. No vascular or intrathecal uptake is observed. At this point, using loss of resistance technique with saline and air, the epidural space was entered. This was confirmed following negative aspiration with injection of approximately 1.5cc of Isovue 200, showing excellent epidural flow without vascular or intrathecal uptake. At this point, 1cc of 1% lidocaine solution combined with 4cc or 20mg of dexamethasone and 12mg betamethasone was injected without incident. The patient tolerated the procedure well without signs or symptoms of complications prior to transfer to the recovery area continued monitoring without incident. The patient was then transferred to the recovery area where they were observed for an appropriate period of time after the injection. The patient reported a VAS score of 6 prior to the procedure and a post- procedure VAS of 0. POST OP INSTRUCTIONS The patient was provided a Pain Log to continue to record their response to the target-specific procedure prior to follow-up visit with their referring physician. Additionally, specific post-injection care instructions and a contact number to our office were provided if concerns arise regarding possible complications associated with the procedure are suspected.
== END 2021-05-31 15:04 | disposition home or self-care (01) ==
LOC: RAD 13:34
PROVIDERS: PCP Nurse Practitioner; Referring Provider Physical Medicine & Rehabilitation; Visit Provider Physical Medicine & Rehabilitation
DX: M51.16 Intervertebral disc disorders with radiculopathy, lumbar region (principal); M48.061 Spinal stenosis, lumbar region without neurogenic claudication
CPT/HCPCS: 62323; 99152; J0702; J1100; J2250

== ENCOUNTER 2021-07-25 11:48 | Emergency (ER) | payer MEDICARE, OTHER, SELFPAY ==
[2021-07-25] VITALS (14 sets, daily range): BP systolic 142–234; BP diastolic 67–101; PULSE 50–57; RESP 12–24; TEMP 36.6; O2SAT 91–97; BMI 32.1
--- NOTE | 2021-07-25 12:17 | DI.RAD.S_ITS ---
PROCEDURE: XR CHEST 1V INDICATIONS: chest pain TECHNIQUE: One view of the chest was acquired. COMPARISON: None. FINDINGS: Surgical changes and devices: Sternotomy and CABG. Lungs and pleura: Lungs are clear. No pleural effusions or pneumothorax. Mediastinum: Mediastinal contours appear normal. Heart size is normal. Bones and chest wall: No suspicious bony lesions. Overlying soft tissues appear unremarkable. IMPRESSION: No acute cardiopulmonary disease. Dictated by: Elmer Earl M.D. on 07/25/2021 at 12:57 Approved by: Elmer Earl M.D. on 07/25/2021 at 12:57
--- NOTE | 2021-07-25 12:20 | DI.CT.S_ITS ---
PROCEDURE: CT HEAD/BRAIN WO CON INDICATIONS: right eye droop, htn TECHNIQUE: Noncontrast 4.5 mm thick angled axial sections acquired from the foramen magnum to the vertex, with coronal and sagittal reformats. For radiation dose reduction, the following was used: automated exposure control, adjustment of mA and/or kV according to patient size. COMPARISON: None. FINDINGS: Image quality: Excellent. CSF spaces: Basal cisterns are patent. No extra-axial fluid collections. The ventricles are symmetric in size and shape. There is moderate cerebral volume loss, with resultant ventricular and sulcal prominence. Brain: No intracranial hemorrhage, mass, or mass effect. There are subcortical, periventricular and deep white matter hypodensities consistent with moderate chronic small vessel ischemic changes. The garcia-white matter junction appears preserved. There is intracranial internal carotid artery atherosclerosis. Skull and face: Calvarium and visualized facial bones appear intact, without suspicious lesions. Sinuses: Visualized sinuses and mastoids are clear. IMPRESSION: 1. No acute intracranial abnormality. 2. Moderate chronic white matter small vessel ischemic changes and cerebral volume loss. Dictated by: Kvng Wetzel M.D. on 07/25/2021 at 12:08 Approved by: Kvng Wetzel M.D. on 07/25/2021 at 12:11
[2021-07-25 12:30] LABS: Add Manual Diff / Slide Review NO; Basophils Absolute Auto 0 /uL (0-100); Basophils Percent Auto 0.5 % (0-2); Eosinophils Absolute Auto 100 /uL (0-450); Eosinophils Percent Auto 1.9 % (2-4); Hematocrit 48.7 % (41-53); Lymphocytes Absolute Auto 1100 /uL (1100-4500); Lymphocytes Percent Auto 15.8 % (25-40); Mean Corpuscular HGB Conc 32.9 % (30-36); Mean Corpuscular Hemoglobin 30.8 PG (26-34); Mean Corpuscular Volume 93.5 fL (80-100); Monocytes Absolute Auto 400 /uL (0-900); Monocytes Percent Auto 5.4 % (3-14); Neutrophils Absolute Auto 5500 /uL (1500-7000); Neutrophils Percent Auto 76.4 % (50-75); Platelet Count 219 X10^3/uL (150-400); Red Blood Cell Count 5.21 X10^6/uL (4.5-5.9); Red Cell Distribution Width 13.3 % (11.6-14.8); White Blood Cell Count 7.1 X10^3/uL (4.5-11.0)
[2021-07-25 12:31] LABS: INR 1.1 (0.9-1.3)
[2021-07-25 12:34] LABS: PTT Partial Thromboplastin Tim 33 SECONDS (26.4-36.2)
[2021-07-25 12:44] LABS: Alanine Aminotransferase 33 IU/L (<50); Albumin 4.6 g/dL (3.5-5.0); Albumin Globulin Ratio 1.8 (1.0-2.8); Alkaline Phosphatase 50 U/L (38-126); Aspartate Aminotransferase 33 IU/L (17-59); BUN Creatinine Ratio 17.8 (6-22); Bilirubin Total 0.7 mg/dL (0.2-1.3); Blood Urea Nitrogen 16 mg/dL (9-20); Carbon Dioxide 33 mmol/L (22-32); Chloride 100 mmol/L (98-107); Creatine Kinase 41 U/L (55-170); Estimated Glomerular Filt Rate > 60.0 mL/min (>60); Globulin 2.6 g/dL (1.7-4.1); Glucose 152 mg/dL (80-110); HEMOLYSIS 32 (0-50); Lipase 43 U/L (23-300); Potassium 4.1 mmol/L (3.4-5.1); Sodium 141 mmol/L (137-145); Total Protein 7.2 g/dL (6.3-8.2)
--- NOTE | 2021-07-25 12:53 | ED.GENADULT ---
HPI - General Adult General Chief complaint: Dizziness Stated complaint: High bp, Referred by Dr. Shaver Time Seen by Provider: 07/25/21 12:05 Source: patient Mode of arrival: Ambulatory Limitations: no limitations History of Present Illness HPI narrative: 75-year-old gentleman with a history of coronary artery disease with bypass grafting, chronic kidney disease, diabetes, thyroid dysfunction, hyperlipidemia and hypertension presents with concerns for elevated blood pressure over the last 72 hours. Three days ago he complained to his that he had been dizzy most of the day. She encouraged him to check his blood pressure and found it was 196/101 at the time. Over the next couple of days he has had continued elevation of his blood pressure in the 190/90 range. He is having no additional episodes of dizziness, no headaches no vision changes no chest pain, palpitations, orthopnea, dyspnea, increasing lower extremity edema. He is not expressing complaints of cough or generalized weakness. He spoke to his supervisor [employer]'s office this morning and they instructed him to come to the emergency department. His last office visit was June 23 and at that time his metoprolol 50 mg extended release b.i.d. was increased to 75 mg b.i.d. due to a large burden of PVCs. Related Data Home Medications Medication Instructions Recorded Confirmed acetaminophen 325 mg tablet 650 mg PO Q6H PRN 02/03/19 05/25/21 (Tylenol) aspirin 81 mg chewable tablet 81 mg PO DAILY 02/03/19 05/25/21 atorvastatin 10 mg tablet 10 mg PO DAILY 02/03/19 05/25/21 levothyroxine 100 mcg capsule 100 mcg PO DAILY 02/03/19 05/25/21 losartan 25 mg tablet 25 mg PO DAILY 02/03/19 05/25/21 metoprolol succinate 25 mg 25 mg PO BID 02/03/19 05/25/21 tablet,extended release 24 hr (Toprol XL) omeprazole 20 mg capsule,delayed 20 mg PO BID cap 02/03/19 05/25/21 release Previous Rx's Medication Instructions Recorded diclofenac sodium 1 % topical gel 2 g TOP QID #100 gram MDD 8 gm 07/08/19 celecoxib 200 mg capsule (Celebrex) 200 mg PO DAILY #30 cap 05/25/21 tramadol 50 mg tablet 50 mg PO Q8H PRN #30 tab 05/25/21 hydrochlorothiazide 25 mg tablet 25 mg PO DAILY #30 tab 07/25/21 Allergies Allergy/AdvReac Type Severity Reaction Status Date / Time tizanidine Allergy Severe Fainting Verified 07/25/21 12:11 gabapentin [GABAPENTIN] AdvReac Unknown Uncontrolllable Verified 07/25/21 12:11 shaking Review of Systems Review of Systems Narrative: Remainder of complete review of systems is otherwise unremarkable except for that included in the HPI. Patient History Medical History (Updated 07/25/21 @ 14:40 by Halle Mojica MD) Dyslipidemia Hypertension Hypothyroid Obesity (BMI 30.0-34.9) Spondylosis without myelopathy or radiculopathy, lumbosacral region Surgical History History of left shoulder replacement S/P CABG x 4 (~2014) Family History Father Heart disease Stroke Mother Heart disease Diabetes mellitus Social History Smoking Status: Former smoker Smoking Status: Former smoker Substance Use Type: does not use Exam Narrative Exam Narrative: General: Healthy appearing, in no acute distress. Able to give a complete and coherent history. Well-nourished well-developed HEENT: Moist mucous membranes, normal sclera with reactive pupils, Neck: No JVD, supple Respiratory: Lungs are clear to auscultation, no wheezing no rales no rhonchi. Full and symmetrical air movement Cardiac: Regular rate and rhythm no murmurs no bruits Abdomen: Soft, nontender, good bowel tones, no flank pain Skin: Warm and dry, no rashes Neurologic: Grossly neurologically intact with no obvious asymmetries or abnormalities Extremities: No trauma, well perfused, 1+ bilateral lower extremity without chronic venous stasis changes Psych: Cooperative, appropriate insight and affect Initial Vital Signs Initial Vital Signs: Vital Signs Temperature 97.9 F 07/25/21 12:12 Pulse Rate 57 L 07/25/21 12:12 Respiratory Rate 14 07/25/21 12:12 Blood Pressure 234/101 H 07/25/21 12:12 Pulse Oximetry 94 07/25/21 12:12 Course Orders Ordered: ED Orders 07/25/21 12:07 EKG-12 Lead Routine 07/25/21 12:10 BNP [NT-proBNP (BNP-Adult 18+)] Stat Complete Blood Count AUTO DIFF Stat Comprehensive Metabolic Panel Stat Lipase Stat Magnesium Stat Partial Thromboplastin Time Stat Prothrombin Time INR Stat Troponin & CK Cardiac Panel Stat 07/25/21 12:17 XR chest 1V Stat 07/25/21 12:20 CT head/brain wo con Stat 07/25/21 12:25 COVID19 - ADMIT ([employer] swab/PCR) Stat Vital Signs Vital signs: Vital Signs - 8 hr 07/25/21 12:12 07/25/21 12:18 07/25/21 12:31 Temperature 97.9 F Pulse Rate 57 L 52 L 54 L Respiratory Rate 14 14 20 Blood Pressure 234/101 H 203/94 H 182/84 H Pulse Oximetry 94 97 95 07/25/21 12:45 07/25/21 12:50 07/25/21 13:03 Temperature Pulse Rate 52 L 52 L 54 L Respiratory Rate 22 15 18 Blood Pressure 166/76 H Pulse Oximetry 93 93 95 07/25/21 13:04 07/25/21 13:16 07/25/21 13:30 Temperature Pulse Rate 51 L 50 L Respiratory Rate 20 18 Blood Pressure 167/73 H 150/67 H 142/69 H Pulse Oximetry 93 92 07/25/21 13:46 07/25/21 14:00 07/25/21 14:16 Temperature Pulse Rate 50 L 50 L 51 L Respiratory Rate 19 15 15 Blood Pressure 152/69 H 150/70 H 170/79 H Pulse Oximetry 93 91 94 Medical Decision Making Lab Data Result diagrams: 07/25/21 12:10 07/25/21 12:10 Labs: Lab Results 07/25/21 07/25/21 07/25/21 Range/Units 12:10 12:10 12:10 WBC 7.1 (4.5-11.0) X10^3/uL RBC 5.21 (4.5-5.9) X10^6/uL Hgb 16.0 (13.5-17.5) g/dL Hct 48.7 (41-53) % MCV 93.5 (80-100) fL MCH 30.8 (26-34) PG MCHC 32.9 (30-36) % RDW 13.3 (11.6-14.8) % Plt Count 219 (150-400) X10^3/uL Neut % (Auto) 76.4 H (50-75) % Lymph % (Auto) 15.8 L (25-40) % [place] % (Auto) 5.4 (3-14) % Eos % (Auto) 1.9 L (2-4) % Baso % (Auto) 0.5 (0-2) % Neut # (Auto) 5500 (5575-7759) /uL Lymph # (Auto) 1100 (4749-0340) /uL [place] # (Auto) 400 (0-900) /uL Eos # (Auto) 100 (0-450) /uL Baso # (Auto) 0 (0-100) /uL PT 12.0 (10.1-12.7) SECONDS INR 1.1 (0.9-1.3) APTT 33 (26.4-36.2) SECONDS Sodium 141 (137-145) mmol/L Potassium 4.1 (3.4-5.1) mmol/L Chloride 100 (98-107) mmol/L Carbon Dioxide 33 H (22-32) mmol/L BUN 16 (9-20) mg/dL Creatinine 0.90 (0.66-1.25) mg/dL Estimated GFR > 60.0 (>60) mL/min BUN/Creatinine Ratio 17.8 (6-22) Glucose 152 H (80-110) mg/dL Calcium 10.0 (8.4-10.2) mg/dL Magnesium 2.0 (1.6-2.3) mg/dL Total Bilirubin 0.7 (0.2-1.3) mg/dL AST 33 (17-59) IU/L ALT 33 (<50) IU/L Alkaline Phosphatase 50 (38-126) U/L Total Creatine Kinase 41 L (55-170) U/L CK-MB (CK-2) TNP CK-MB (CK-2) Rel Index TNP Troponin I 0.015 (0.01-0.034) ng/mL NT-Pro-B Natriuret Pep 464 H (<450) pg/mL Total Protein 7.2 (6.3-8.2) g/dL Albumin 4.6 (3.5-5.0) g/dL Globulin 2.6 (1.7-4.1) g/dL Albumin/Globulin Ratio 1.8 (1.0-2.8) Lipase 43 (23-300) U/L SARS-CoV-2 (PCR) (Negative) 07/25/21 Range/Units 12:25 WBC (4.5-11.0) X10^3/uL RBC (4.5-5.9) X10^6/uL Hgb (13.5-17.5) g/dL Hct (41-53) % MCV (80-100) fL MCH (26-34) PG MCHC (30-36) % RDW (11.6-14.8) % Plt Count (150-400) X10^3/uL Neut % (Auto) (50-75) % Lymph % (Auto) (25-40) % [place] % (Auto) (3-14) % Eos % (Auto) (2-4) % Baso % (Auto) (0-2) % Neut # (Auto) (8179-5871) /uL Lymph # (Auto) (1930-1652) /uL [place] # (Auto) (0-900) /uL Eos # (Auto) (0-450) /uL Baso # (Auto) (0-100) /uL PT (10.1-12.7) SECONDS INR (0.9-1.3) APTT (26.4-36.2) SECONDS Sodium (137-145) mmol/L Potassium (3.4-5.1) mmol/L Chloride (98-107) mmol/L Carbon Dioxide (22-32) mmol/L BUN (9-20) mg/dL Creatinine (0.66-1.25) mg/dL Estimated GFR (>60) mL/min BUN/Creatinine Ratio (6-22) Glucose (80-110) mg/dL Calcium (8.4-10.2) mg/dL Magnesium (1.6-2.3) mg/dL Total Bilirubin (0.2-1.3) mg/dL AST (17-59) IU/L ALT (<50) IU/L Alkaline Phosphatase (38-126) U/L Total Creatine Kinase (55-170) U/L CK-MB (CK-2) CK-MB (CK-2) Rel Index Troponin I (0.01-0.034) ng/mL NT-Pro-B Natriuret Pep (<450) pg/mL Total Protein (6.3-8.2) g/dL Albumin (3.5-5.0) g/dL Globulin (1.7-4.1) g/dL Albumin/Globulin Ratio (1.0-2.8) Lipase (23-300) U/L SARS-CoV-2 (PCR) Negative (Negative) Imaging Data Chest x-ray: Radiologist's Impression: FINDINGS:? ? Surgical changes and devices:? Sternotomy and CABG.? ? Lungs and pleura:? Lungs are clear.? No pleural effusions or pneumothorax.? ? Mediastinum:? Mediastinal contours appear normal.? Heart size is normal.? ? Bones and chest wall:? No suspicious bony lesions.? Overlying soft tissues appear unremarkable.? ? IMPRESSION:? No acute cardiopulmonary disease. ? ? Dictated by: Elmer Earl M.D. on 07/25/2021 at 12:57? ?? CT scan - head: Radiologist's Impression: FINDINGS:? Image quality:? Excellent.? ? CSF spaces:? Basal cisterns are patent.? No extra-axial fluid collections.? The ventricles are symmetric in size and shape.? There is moderate cerebral volume loss, with resultant ventricular and sulcal prominence.? ? Brain:? No intracranial hemorrhage, mass, or mass effect.? There are subcortical, periventricular and deep white matter hypodensities consistent with moderate chronic small vessel ischemic changes.? The garcia-white matter junction appears preserved.? There is intracranial internal carotid artery atherosclerosis.? ? Skull and face:? Calvarium and visualized facial bones appear intact, without suspicious lesions.? ? Sinuses:? Visualized sinuses and mastoids are clear.? ? IMPRESSION:? ? 1. No acute intracranial abnormality. ? 2. Moderate chronic white matter small vessel ischemic changes and cerebral volume loss.? Dictated by: Kvng Wetzel M.D. on 07/25/2021 at 12:08? ?? ECG Data Interpretation: Sinus rhythm at a rate of 55 LVH with repolarization abnormalities No acute ischemic changes MDM Narrative Medical decision making narrative: 75-year-old gentleman with history of hypertension and coronary artery disease presents with asymptomatic hypertension. Currently on Cozaar 50 mg daily, metoprolol succinate 50 mg 1 and half tablets twice a day. Clinic notes from month ago indicate that his systolic pressures are typically in the 130s so this acute change is notable. With no significant end organ changes today does not need hospital admission. In the emergency department his blood pressure has been as low was 140/70 with heart rate consistently in the mid to low 50s. Given his 1+ lower extremity edema and creatinine in the normal range will add 25 mg of hydrochlorothiazide to his current medications and have his continue to check blood pressures. Clinic notes had indicated an echocardiogram was to be scheduled with follow-up after that. Will ask the patient to contact his cardiology office with results from this current ER visit medication change and follow-up blood pressure visit to be scheduled. At this point he is safe for home discharge Discharge Plan Departure Patient Disposition: Home Clinical Impression: Hypertension Instructions: DI for High Blood Pressure Activity Restrictions/Additional Instructions: Thank you for coming in today I do not have a full explanation for why your blood pressures been so elevated over the last 3 days. Fortunately there is no sign of a stroke, heart attack, significant congestive heart failure or acute kidney damage. I am going to suggest that we add hydrochlorothiazide 25 mg daily (it sounds like this is the medication you had been on previously) to all of your current medications. [place] Please continue to take all of your medications as prescribed. Continue to check blood pressures daily, approximately 2-3 hours after taking blood pressure medication is going to be best. You will need to be seen by your supervisor [employer] to recheck blood pressures and see if this is a medication we should be continuing for you If you have chest pain, palpitations, stroke-like symptoms that include headache, severe dizziness that does not resolve or numbness or tingling in 1 part of your body please return to the emergency department Prescriptions: New hydrochlorothiazide 25 mg tablet 25 mg PO DAILY Qty: 30 0RF No Action atorvastatin 10 mg tablet 10 mg PO DAILY 0RF aspirin 81 mg tablet,chewable 81 mg PO DAILY 0RF metoprolol succinate [Toprol XL] 25 mg tablet extended release 24 hr 25 mg PO BID 0RF levothyroxine 100 mcg capsule 100 mcg PO DAILY 0RF omeprazole 20 mg capsule,delayed release(DR/EC) 20 mg PO BID 0RF losartan 25 mg tablet 25 mg PO DAILY 0RF acetaminophen [Tylenol] 325 mg tablet 650 mg PO Q6H PRN0RF diclofenac sodium 1 % gel 2 g TOP QID MDD 8 gm Qty: 100 5RF Rx Instructions: apply to low back celecoxib [Celebrex] 200 mg capsule 200 mg PO DAILY Qty: 30 2RF tramadol 50 mg tablet 50 mg PO Q8H PRN (Reason: pain) Qty: 30 1RF Referrals: Ekaterina Marquis ARNP [Primary Care Provider] -
[2021-07-25 12:55] LABS: NT-proBNP (BNP-Adult 18+) 464 pg/mL (<450); Troponin I 0.015 ng/mL (0.01-0.034)
[2021-07-25 13:30] LABS: COVID19 - ADMIT (NP swab/PCR) Negative (Negative)
[2021-07-25] MEDS: hydroCHLOROthiazide 25 MG TABLET PO (14:55)
== END 2021-07-25 15:05 | disposition home or self-care (01) ==
PROVIDERS: Emergency Provider Emergency Medicine; PCP Nurse Practitioner
DX: I10 Essential (primary) hypertension (principal); R29.810 Facial weakness; Z20.822 Contact with and (suspected) exposure to COVID-19; Z87.891 Personal history of nicotine dependence
CPT/HCPCS: 36415; 70450; 71045; 80053; 82550; 83690; 83735; 83880; 84484; 85025; 85610; 85730; 87635; 93005; 93010; 99284; 99285; C9803

== ENCOUNTER 2021-08-29 11:48 | Inpatient (IN) | payer MEDICARE, OTHER, SELFPAY ==
[2021-08-29] VITALS (63 sets, daily range): BP systolic 93–140; BP diastolic 57–80; PULSE 59–70; RESP 14–33; TEMP 36.6–36.8; O2SAT 87–99; BMI 28.0
--- NOTE | 2021-08-29 11:57 | DI.CT.S_ITS ---
PROCEDURE: CT HEAD/BRAIN WO CON INDICATIONS: cough, alt mental status TECHNIQUE: Noncontrast 4.5 mm thick angled axial sections acquired from the foramen magnum to the vertex, with coronal and sagittal reformats. For radiation dose reduction, the following was used: automated exposure control, adjustment of mA and/or kV according to patient size. COMPARISON: [facility], CT, CT HEAD/BRAIN WO CON, 07/25/2021, 13:02. FINDINGS: Image quality: Excellent. CSF spaces: Basal cisterns are patent. No extra-axial fluid collections. The ventricles are symmetric in size and shape. Brain: No intracranial bleeds or masses. There is cerebral volume loss for age, with resultant ventricular and sulcal prominence. There are moderate periventricular and deep white matter chronic small vessel ischemic changes. There is intracranial internal carotid artery atherosclerosis. Skull and face: Calvarium and visualized facial bones appear intact, without suspicious lesions. Sinuses: Visualized sinuses and mastoids are clear. IMPRESSION: 1. No acute intracranial abnormalities. 2. Cerebral volume loss and chronic microvascular ischemic changes. Dictated by: Elmer Earl M.D. on 08/29/2021 at 13:28 Approved by: Elmer Earl M.D. on 08/29/2021 at 13:30
--- NOTE | 2021-08-29 11:57 | DI.RAD.S_ITS ---
PROCEDURE: XR CHEST 1V INDICATIONS: cough, alt mental status TECHNIQUE: One view of the chest was acquired. COMPARISON: [facility], , XR CHEST 1V, 07/25/2021, 12:19. FINDINGS: Surgical changes and devices: Post CABG changes are seen. Left shoulder arthroplasty hardware is partially seen. Right lower neck clips are partially seen. Lungs and pleura: Low lung volumes are noted. This causes a crowded appearance to the lung markings and limits evaluation. On this semiupright portable chest examination, no large pneumothorax or large pleural effusions are seen. No focal infiltrates are seen. Mediastinum: Mediastinal contours appear normal. Heart size is normal. Bones and chest wall: No suspicious bony lesions. Age-appropriate bony degenerative changes are seen. Overlying soft tissues appear unremarkable. IMPRESSION: Limited portable chest examination, without a significant cardiopulmonary abnormality identified. If clinically appropriate, a short-term followup chest series (with PA and lateral views) performed in deep inspiration is suggested for further evaluation. Dictated by: Bryce Stevens M.D. on 08/29/2021 at 12:22 Approved by: Bryce Stevens M.D. on 08/29/2021 at 12:22
[2021-08-29 12:34] LABS: COVID19 -Nasal RAPID POSITIVE (Negative)
[2021-08-29 13:13] LABS: INR 1.1 (0.9-1.3); Prothrombin Time 12.6 SECONDS (10.1-12.7)
[2021-08-29 13:15] LABS: Add Manual Diff / Slide Review NO; Basophils Absolute Auto 0 /uL (0-100); Basophils Percent Auto 0.3 % (0-2); Eosinophils Absolute Auto 0 /uL (0-450); Eosinophils Percent Auto 0.5 % (2-4); Hematocrit 47.8 % (41-53); Hemoglobin 15.9 g/dL (13.5-17.5); Lymphocytes Absolute Auto 900 /uL (1100-4500); Lymphocytes Percent Auto 13.4 % (25-40); Mean Corpuscular HGB Conc 33.3 % (30-36); Mean Corpuscular Hemoglobin 30.3 PG (26-34); Monocytes Absolute Auto 500 /uL (0-900); Monocytes Percent Auto 7.8 % (3-14); Neutrophils Absolute Auto 5000 /uL (1500-7000); Platelet Count 161 X10^3/uL (150-400); Red Blood Cell Count 5.25 X10^6/uL (4.5-5.9); Red Cell Distribution Width 13.1 % (11.6-14.8); White Blood Cell Count 6.4 X10^3/uL (4.5-11.0)
[2021-08-29 13:16] LABS: PTT Partial Thromboplastin Tim 29 SECONDS (26.4-36.2)
[2021-08-29 13:21] LABS: Lactate (Lactic Acid) 1.3 mmol/L (0.7-2.1)
[2021-08-29 13:25] LABS: Acetaminophen < 10 ug/mL (10-30); Alanine Aminotransferase 73 IU/L (<50); Albumin Globulin Ratio 1.3 (1.0-2.8); Alkaline Phosphatase 68 U/L (38-126); Aspartate Aminotransferase 76 IU/L (17-59); Bilirubin Total 0.7 mg/dL (0.2-1.3); Blood Urea Nitrogen 58 mg/dL (9-20); Calcium 9.2 mg/dL (8.4-10.2); Carbon Dioxide 27 mmol/L (22-32); Chloride 102 mmol/L (98-107); Creatine Kinase 129 U/L (55-170); Estimated Glomerular Filt Rate 35.4 mL/min (>60); Ethanol (ETOH) < 10 mg/dL; Globulin 3.2 g/dL (1.7-4.1); Glucose 176 mg/dL (80-110); HEMOLYSIS < 15 (0-50); Potassium 3.8 mmol/L (3.4-5.1); Salicylate < 1.0 mg/dL (<20); Sodium 139 mmol/L (137-145); Total Protein 7.2 g/dL (6.3-8.2)
[2021-08-29 13:34] LABS: Troponin I 0.036 ng/mL (0.01-0.034)
[2021-08-29 13:39] LABS: Prolactin 6.9 ng/mL (3.7-17.9)
[2021-08-29 13:40] LABS: Creatine Kinase MB 1.24 ng/mL (<2.37)
--- NOTE | 2021-08-29 13:56 | ED.AMS ---
HPI - Altered Mental Status General Chief Complaint: Altered Mental Status Stated Complaint: not eating, extreme memory loss, shaky Time Seen by Provider: 08/29/21 13:55 Source: patient Mode of arrival: Ambulatory Limitations: no limitations History of Present Illness HPI narrative: This is a pleasant 75-year-old male who comes emergency department with complaint of decreased appetite, feelings she shaky and generally unwell. Patient has not had any fevers. He has has some baseline dementia but has had a worsening in his mental status. He has had a little shortness of breath cording him. His notes he gets quite dyspneic when he ambulates even to the bathroom. This is new for him. No chest pain or pressure. No nausea or vomiting. No other GI or urinary symptoms. Patient does have a history of CABG x4 7 years ago, shoulder surgery and cholecystectomy. He takes medications for hypertension, dyslipidemia, hypothyroid. Tramadol as needed, he does take celecoxib which may be contributing to his renal failure. Patient is vaccinated for COVID but has not had his booster. He smoked tobacco 30 years ago. No alcohol or illicit. He is accompanied by his . Related Data Home Medications Medication Instructions Recorded Confirmed acetaminophen 325 mg tablet 650 mg PO Q6H PRN 02/03/19 08/29/21 (Tylenol) aspirin 81 mg chewable tablet 81 mg PO DAILY 02/03/19 08/29/21 atorvastatin 10 mg tablet 10 mg PO DAILY 02/03/19 08/29/21 losartan 25 mg tablet 25 mg PO DAILY 02/03/19 08/29/21 omeprazole 20 mg capsule,delayed 20 mg PO BID cap 02/03/19 08/29/21 release acetaminophen 325 mg tablet 650 mg PO QAM 08/29/21 08/29/21 (Tylenol) levothyroxine 125 mcg tablet 125 mcg PO DAILY 08/29/21 08/29/21 (Synthroid) metoprolol succinate 50 mg 75 mg PO BID 08/29/21 08/29/21 tablet,extended release 24 hr tramadol 50 mg tablet 50 - 100 mg PO Q8H PRN 08/29/21 08/29/21 Previous Rx's Medication Instructions Recorded celecoxib 200 mg capsule (Celebrex) 200 mg PO DAILY #30 cap 05/25/21 hydrochlorothiazide 25 mg tablet 25 mg PO DAILY #30 tab 07/25/21 Allergies Allergy/AdvReac Type Severity Reaction Status Date / Time tizanidine Allergy Severe Fainting Verified 08/29/21 17:05 gabapentin [GABAPENTIN] AdvReac Unknown Uncontrolllable Verified 08/29/21 17:05 shaking Review of Systems Review of Systems ROS Unobtainable: All systems reviewed & are unremarkable except as noted in HPI and below Patient History Medical History Dyslipidemia Hypertension Hypothyroid Obesity (BMI 30.0-34.9) Spondylosis without myelopathy or radiculopathy, lumbosacral region Surgical History History of left shoulder replacement S/P CABG x 4 (~2014) Family History Father Heart disease Stroke Mother Heart disease Diabetes mellitus Social History household members: spouse Smoking Status: Former smoker Smoking Status: Former smoker alcohol intake frequency: 0-2 drinks per day Substance Use Type: does not use Exam Narrative Exam Narrative: GENERAL: Alert and oriented x three, elderly male in mild distress. HEENT: Head normocephalic, atraumatic, EOMI, pupils reactive, face symmetric, moist mucous membranes NECK: Supple, full range of motion CARDIOVASCULAR: Regular rate and rhythm without murmurs, rubs or gallops. RESPIRATORY: Breath sounds equal bilaterally, no wheezes rales or rhonchi. No tachypnea accessory muscle use. ABDOMEN: Soft, nontender. Normoactive bowel sounds all 4 quadrants. No guarding or rebound, rigidity, no mass : No CVA tenderness EXTREMITIES: Normal range of motion, no clubbing or edema. Neurovascularly intact NEUROLOGICAL: Cranial nerves II through XII grossly intact. Moving all extremities SKIN: Warm, dry, no petechiae, no rashes or lesions. Initial Vital Signs Initial Vital Signs: Vital Signs Temperature 97.8 F 08/29/21 11:53 Pulse Rate 65 08/29/21 11:53 Respiratory Rate 18 08/29/21 11:53 Blood Pressure 110/66 08/29/21 11:53 Pulse Oximetry 89 L 08/29/21 11:53 Course Orders Ordered: ED Orders 08/29/21 11:57 CT head/brain wo con Stat XR chest 1V Stat EKG-12 Lead Stat 08/29/21 11:58 COVID19 -Nasal swab/Pre-Proc Stat 08/29/21 12:20 Acetaminophen Stat Complete Blood Count AUTO DIFF Stat Comprehensive Metabolic Panel Stat Ethanol (ETOH) Stat Lactate (Lactic Acid) Stat Partial Thromboplastin Time Stat Prolactin Stat Prothrombin Time INR Stat Salicylate Stat Thyroid Stimulating Hormone Stat Troponin & CK Cardiac Panel Stat 08/29/21 12:30 Blood Culture Stat 08/29/21 14:46 Troponin I Stat 08/29/21 18:00 Urinalysis and Microscopic Stat Urine Drug Screen, Rapid Stat Acetaminophen (Acetaminophen 325 Mg Tablet) 650 mg PO Q6H PRN PRN Reason: Pain (Scale Score 1-3) Aspirin (Aspirin 81 Mg Chew Tab) 81 mg PO DAILY [facility] Atorvastatin Calcium (Atorvastatin 20 Mg Tablet) 10 mg PO DAILY [facility] Enoxaparin Sodium (Enoxaparin 30 Mg/0.3 Ml Syringe) 30 mg SUBCUT DAILY [facility] Sodium Chloride (Normal Saline 0.9%) 1,000 mls @ 100 mls/hr IV CONT LASHAE Last Admin: 08/29/21 20:03 Dose: 100 mls/hr Documented by: GLYNNRDDAMARIS Levothyroxine Sodium (Levothyroxine 125 Mcg Tablet) 125 mcg PO 0600 [facility] Metoprolol Succinate (Metoprolol Er 50 Mg Tablet) 75 mg PO BID [facility] Naloxone HCl (Naloxone 0.4 Mg/Ml Vial) 0.2 mg IV Q2MIN PRN PRN Reason: Opiate Reversal Ondansetron HCl (Ondansetron 4 Mg/2 Ml Inj) 4 mg IV Q8HR PRN PRN Reason: Nausea And Vomiting Pantoprazole Sodium (Pantoprazole Dr 20 Mg Tablet) 20 mg PO 0700,2100 [facility] Discontinued Medications Acetaminophen (Acetaminophen 325 Mg Tablet) 650 mg PO Q6HR PRN PRN Reason: Fever/Mild Pain (1-3) Dexamethasone (Dexamethasone 10 Mg/Ml Vial) 6 mg IV NOW ONE Stop: 08/29/21 14:47 Last Admin: 08/29/21 16:10 Dose: 6 mg Documented by: MELBA Remdesivir 200 mg/ Sodium (Chloride) 250 mls @ 250 mls/hr IV NOW ONE Stop: 08/29/21 15:45 Last Infusion: 08/29/21 17:24 Dose: 0 mls/hr Documented by: Admin: 08/29/21 16:10 Dose: 250 mls/hr Documented by: MELBA Sodium Chloride (Normal Saline 0.9%) 1,000 mls @ 1,000 mls/hr IV BOLUS ONE Stop: 08/29/21 19:21 Last Admin: 08/29/21 18:40 Dose: 1,000 mls/hr Documented by: CPETRIC Consultations Consultation #1: Dr. Her baeza. Patient desats on ambulation to 89%. He also appears to have acute kidney injury in comparison his baseline and appears dehydrated with elevated BUN. Patient's electrolytes are otherwise appropriate. Gross is 176. Patient has an indeterminate troponin but in the setting of his intermittent hypoxia and COVID infection is not unexpected. Chest x-ray does not show acute changes. Patient accepted for admission. Vital Signs Vital signs: Vital Signs - 8 hr 08/29/21 14:47 08/29/21 15:00 08/29/21 15:01 Pulse Rate 60 60 60 Respiratory Rate 21 19 21 Blood Pressure 116/65 Pulse Oximetry 93 93 93 08/29/21 15:30 Pulse Rate 61 Respiratory Rate 26 H Blood Pressure 112/66 Pulse Oximetry 91 MDM - Altered Mental Status Lab Data Result diagrams: 08/29/21 12:20 08/29/21 12:20 Labs: Lab Results 08/29/21 08/29/21 08/29/21 Range/Units 11:58 12:20 12:20 WBC 6.4 (4.5-11.0) X10^3/uL RBC 5.25 (4.5-5.9) X10^6/uL Hgb 15.9 (13.5-17.5) g/dL Hct 47.8 (41-53) % MCV 91.0 (80-100) fL MCH 30.3 (26-34) PG MCHC 33.3 (30-36) % RDW 13.1 (11.6-14.8) % Plt Count 161 (150-400) X10^3/uL Neut % (Auto) 78.0 H (50-75) % Lymph % (Auto) 13.4 L (25-40) % [place] % (Auto) 7.8 (3-14) % Eos % (Auto) 0.5 L (2-4) % Baso % (Auto) 0.3 (0-2) % Neut # (Auto) 5000 (4459-0283) /uL Lymph # (Auto) 900 L (8667-5022) /uL [place] # (Auto) 500 (0-900) /uL Eos # (Auto) 0 (0-450) /uL Baso # (Auto) 0 (0-100) /uL PT 12.6 (10.1-12.7) SECONDS INR 1.1 (0.9-1.3) APTT 29 (26.4-36.2) SECONDS Sodium (137-145) mmol/L Potassium (3.4-5.1) mmol/L Chloride (98-107) mmol/L Carbon Dioxide (22-32) mmol/L BUN (9-20) mg/dL Creatinine (0.66-1.25) mg/dL Estimated GFR (>60) mL/min BUN/Creatinine Ratio (6-22) Glucose (80-110) mg/dL Lactate (0.7-2.1) mmol/L Calcium (8.4-10.2) mg/dL Total Bilirubin (0.2-1.3) mg/dL AST (17-59) IU/L ALT (<50) IU/L Alkaline Phosphatase (38-126) U/L Total Creatine Kinase (55-170) U/L CK-MB (CK-2) (<2.37) ng/mL CK-MB (CK-2) Rel Index (1.5-5.0) % Troponin I (0.01-0.034) ng/mL Total Protein (6.3-8.2) g/dL Albumin (3.5-5.0) g/dL Globulin (1.7-4.1) g/dL Albumin/Globulin Ratio (1.0-2.8) TSH (0.47-4.68) uIU/mL Prolactin (3.7-17.9) ng/mL Salicylates (<20) mg/dL Acetaminophen (10-30) ug/mL Ethyl Alcohol ( - 10) mg/dL SARS-CoV-2 (PCR) Positive H (Negative) 08/29/21 08/29/21 08/29/21 Range/Units 12:20 12:20 12:20 WBC (4.5-11.0) X10^3/uL RBC (4.5-5.9) X10^6/uL Hgb (13.5-17.5) g/dL Hct (41-53) % MCV (80-100) fL MCH (26-34) PG MCHC (30-36) % RDW (11.6-14.8) % Plt Count (150-400) X10^3/uL Neut % (Auto) (50-75) % Lymph % (Auto) (25-40) % [place] % (Auto) (3-14) % Eos % (Auto) (2-4) % Baso % (Auto) (0-2) % Neut # (Auto) (0670-7443) /uL Lymph # (Auto) (0084-4089) /uL [place] # (Auto) (0-900) /uL Eos # (Auto) (0-450) /uL Baso # (Auto) (0-100) /uL PT (10.1-12.7) SECONDS INR (0.9-1.3) APTT (26.4-36.2) SECONDS Sodium 139 (137-145) mmol/L Potassium 3.8 (3.4-5.1) mmol/L Chloride 102 (98-107) mmol/L Carbon Dioxide 27 (22-32) mmol/L BUN 58 H (9-20) mg/dL Creatinine 1.87 H (0.66-1.25) mg/dL Estimated GFR 35.4 L (>60) mL/min BUN/Creatinine Ratio 31.0 H (6-22) Glucose 176 H (80-110) mg/dL Lactate 1.3 (0.7-2.1) mmol/L Calcium 9.2 (8.4-10.2) mg/dL Total Bilirubin 0.7 (0.2-1.3) mg/dL AST 76 H (17-59) IU/L ALT 73 H (<50) IU/L Alkaline Phosphatase 68 (38-126) U/L Total Creatine Kinase 129 (55-170) U/L CK-MB (CK-2) 1.24 (<2.37) ng/mL CK-MB (CK-2) Rel Index 1.0 L (1.5-5.0) % Troponin I 0.036 H (0.01-0.034) ng/mL Total Protein 7.2 (6.3-8.2) g/dL Albumin 4.0 (3.5-5.0) g/dL Globulin 3.2 (1.7-4.1) g/dL Albumin/Globulin Ratio 1.3 (1.0-2.8) TSH 3.00 (0.47-4.68) uIU/mL Prolactin 6.9 (3.7-17.9) ng/mL Salicylates < 1.0 (<20) mg/dL Acetaminophen < 10 L (10-30) ug/mL Ethyl Alcohol < 10 ( - 10) mg/dL SARS-CoV-2 (PCR) (Negative) 08/29/21 Range/Units 14:46 WBC (4.5-11.0) X10^3/uL RBC (4.5-5.9) X10^6/uL Hgb (13.5-17.5) g/dL Hct (41-53) % MCV (80-100) fL MCH (26-34) PG MCHC (30-36) % RDW (11.6-14.8) % Plt Count (150-400) X10^3/uL Neut % (Auto) (50-75) % Lymph % (Auto) (25-40) % [place] % (Auto) (3-14) % Eos % (Auto) (2-4) % Baso % (Auto) (0-2) % Neut # (Auto) (5674-9311) /uL Lymph # (Auto) (9834-0376) /uL [place] # (Auto) (0-900) /uL Eos # (Auto) (0-450) /uL Baso # (Auto) (0-100) /uL PT (10.1-12.7) SECONDS INR (0.9-1.3) APTT (26.4-36.2) SECONDS Sodium (137-145) mmol/L Potassium (3.4-5.1) mmol/L Chloride (98-107) mmol/L Carbon Dioxide (22-32) mmol/L BUN (9-20) mg/dL Creatinine (0.66-1.25) mg/dL Estimated GFR (>60) mL/min BUN/Creatinine Ratio (6-22) Glucose (80-110) mg/dL Lactate (0.7-2.1) mmol/L Calcium (8.4-10.2) mg/dL Total Bilirubin (0.2-1.3) mg/dL AST (17-59) IU/L ALT (<50) IU/L Alkaline Phosphatase (38-126) U/L Total Creatine Kinase (55-170) U/L CK-MB (CK-2) (<2.37) ng/mL CK-MB (CK-2) Rel Index (1.5-5.0) % Troponin I 0.035 H (0.01-0.034) ng/mL Total Protein (6.3-8.2) g/dL Albumin (3.5-5.0) g/dL Globulin (1.7-4.1) g/dL Albumin/Globulin Ratio (1.0-2.8) TSH (0.47-4.68) uIU/mL Prolactin (3.7-17.9) ng/mL Salicylates (<20) mg/dL Acetaminophen (10-30) ug/mL Ethyl Alcohol ( - 10) mg/dL SARS-CoV-2 (PCR) (Negative) Imaging Data Chest x-ray: Radiologist's Impression: [address] [address] XRay Report Signed Patient: Enio Copeland MR#: [id number] : 1945 Acct:[id number] Age/Sex: 75 / M Date of Service: 08/29/21 Loc: ED Accession Number: [id number] ?? Procedure: XR chest 1V Ordering Provider: Anne Sanabria D.O. PROCEDURE:? XR CHEST 1V ? INDICATIONS:? cough, alt mental status ? TECHNIQUE:? One view of the chest was acquired.? ? COMPARISON:? [facility], , XR CHEST 1V, 07/25/2021, 12:19. ? FINDINGS:? ? Surgical changes and devices:? Post CABG changes are seen.? Left shoulder arthroplasty hardware is partially seen.? Right lower neck clips are partially seen. ? Lungs and pleura:? Low lung volumes are noted. This causes a crowded appearance to the lung markings and limits evaluation.? On this semiupright portable chest examination, no large pneumothorax or large pleural effusions are seen.? No focal infiltrates are seen.? ? Mediastinum:? Mediastinal contours appear normal.? Heart size is normal.? ? Bones and chest wall:? No suspicious bony lesions.? Age-appropriate bony degenerative changes are seen.? Overlying soft tissues appear unremarkable.? ? ? IMPRESSION:? ? Limited portable chest examination, without a significant cardiopulmonary abnormality identified.? ? If clinically appropriate, a short-term followup chest series (with PA and lateral views) performed in deep inspiration is suggested for further evaluation.? ? ? Dictated by: Bryce Stevens M.D. on 08/29/2021 at 12:22 ? ? Approved by: Bryce Stevens M.D. on 08/29/2021 at 12:22 CT scan - head: Radiologist's Impression: Launch?[place] [address] CT Scan Report Signed Patient: Enio Copeland MR#: [id number] : 1945 Acct:[id number] Age/Sex: 75 / M Date of Service: 08/29/21 Loc: ED Accession Number: [id number] ?? Procedure: CT head/brain wo con Ordering Provider: Anne Sanabria D.O. PROCEDURE:? CT HEAD/BRAIN WO CON ? INDICATIONS:? cough, alt mental status ? TECHNIQUE:? Noncontrast 4.5 mm thick angled axial sections acquired from the foramen magnum to the vertex, with coronal and sagittal reformats.? For radiation dose reduction, the following was used:? automated exposure control, adjustment of mA and/or kV according to patient size.? ? COMPARISON:? [facility], CT, CT HEAD/BRAIN WO CON, 07/25/2021, 13:02. ? FINDINGS:? Image quality:? Excellent.? ? CSF spaces:? Basal cisterns are patent.? No extra-axial fluid collections.? The ventricles are symmetric in size and shape.? ? Brain:? No intracranial bleeds or masses.? There is cerebral volume loss for age, with resultant ventricular and sulcal prominence.? There are moderate periventricular and deep white matter chronic small vessel ischemic changes.? There is intracranial internal carotid artery atherosclerosis.? ? Skull and face:? Calvarium and visualized facial bones appear intact, without suspicious lesions.? ? Sinuses:? Visualized sinuses and mastoids are clear.? ? IMPRESSION:? ? 1. No acute intracranial abnormalities. 2. Cerebral volume loss and chronic microvascular ischemic changes. ? ? ? Dictated by: Elmer Earl M.D. on 08/29/2021 at 13:28 ? ? Approved by: Elmer Earl M.D. on 08/29/2021 at 13:30?? ECG Data Attestation: I personally reviewed and interpreted this ECG as follows: Prior ECG tracings: available for review Interpretation: Sinus rhythm, rate of 64 [place] 178 QRS of 114 and QTC 435. Nonspecific change. Patient has LVH with no new changes compared to EKG from 07/25/2021. Discharge Plan Departure Patient Disposition: Admitted As Inpatient Clinical Impression: COVID-19 virus infection, Acute respiratory failure with hypoxia, Acute kidney injury, Dehydration Admit Date/Time: 08/29/21 15:41 Admit Provider: Luke Tong
[2021-08-29 15:34] LABS: Troponin I 0.035 ng/mL (0.01-0.034)
[2021-08-29] MEDS: REMDESIVIR 200 MG in SODIUM CHLORIDE 0.9% 210 ML 250 ML IV (16:10)
[2021-08-29] MEDS: DEXAMETHASONE 10 MG/ML VIAL 6 MG IV (16:10)
--- NOTE | 2021-08-29 18:08 | P.HP_ITS ---
History of Present Illness History of Present Illness Date Patient Seen: 08/29/21 Time Patient Seen: 15:00 Date of Onset of Symptoms: 08/23/21 Chief complaint: not eating, extreme memory loss, shaky Narrative: Patient is a 75-year-old male with history of CAD, status post 4 vessel CABG in 2015, hypertension, hyperlipidemia, hypothyroidism lumbosacral spondylosis presents with 5 to six-day history of loss of appetite, diminished oral intake, extreme fatigue. He states lost appetite and can not taste food. He denies chest pain, cough or dyspnea although spouse noted that he seemed out of breath with exertion. Denies nausea, vomiting or diarrhea. Denies fever. His spouse has also been concern due to patient's confusion seeming to mumble things and be less aware of surroundings. Also his balance has been off with stumbling gait but denies fall. On ER evaluation, initial vitals were temp 97.8?, pulse ox 89% room air, BP 110/66, pulse 60, respiratory rate 18. WBC normal. He is in acute renal failure with BUN 58 and creatinine 1.87 versus recent previous creatinine 0.9. Lactate is normal. He has mild elevation of liver enzymes. He has indeterminate mild troponin elevation 0.036 then 0.035 which is stable. His SARs COVID 2 PCR is positive. Head CT without acute findings. Chest x-ray without infiltrate. Patient has received 2 shots for COVID vaccination but has not been boosted. Patient History Medical History Dyslipidemia Hypertension Hypothyroid Obesity (BMI 30.0-34.9) Spondylosis without myelopathy or radiculopathy, lumbosacral region Surgical History History of left shoulder replacement S/P CABG x 4 (~2014) Family & Social History Family History Father Heart disease Stroke Mother Heart disease Diabetes mellitus Safety & Behavioral: Feels Safe in Current Yes Environment Been Physically Hurt or No Threatened By a Person Tobacco & Substance use: Smoking Status Former smoker alcohol intake frequency 0-2 drinks per day Substance Use Type does not use Meds Home Medications and Allergies Home Medications Medication Instructions Recorded Confirmed Type acetaminophen 325 mg tablet 650 mg PO Q6H PRN 02/03/19 08/29/21 History (Tylenol) aspirin 81 mg chewable tablet 81 mg PO DAILY 02/03/19 08/29/21 History atorvastatin 10 mg tablet 10 mg PO DAILY 02/03/19 08/29/21 History losartan 25 mg tablet 25 mg PO DAILY 02/03/19 08/29/21 History omeprazole 20 mg capsule,delayed 20 mg PO BID cap 02/03/19 08/29/21 History release celecoxib 200 mg capsule (Celebrex) 200 mg PO DAILY #30 cap 05/25/21 08/29/21 Rx hydrochlorothiazide 25 mg tablet 25 mg PO DAILY #30 tab 07/25/21 08/29/21 Rx acetaminophen 325 mg tablet 650 mg PO QAM 08/29/21 08/29/21 History (Tylenol) levothyroxine 125 mcg tablet 125 mcg PO DAILY 08/29/21 08/29/21 History (Synthroid) metoprolol succinate 50 mg 75 mg PO BID 08/29/21 08/29/21 History tablet,extended release 24 hr tramadol 50 mg tablet 50 - 100 mg PO Q8H PRN 08/29/21 08/29/21 History Allergies Allergy/AdvReac Type Severity Reaction Status Date / Time tizanidine Allergy Severe Fainting Verified 08/29/21 17:05 gabapentin [GABAPENTIN] AdvReac Unknown Uncontrolllable Verified 08/29/21 17:05 shaking Review of Systems Review of Systems Narrative: Complete 10 point ROS negative other than noted above. Exam Vital Signs (past 8 hours): - 08/29/21 11:53 08/29/21 14:47 08/29/21 15:00 Temperature 97.8 F Pulse Rate 65 60 60 Respiratory Rate 18 21 19 Blood Pressure 110/66 Pulse Oximetry 89 L 93 93 08/29/21 15:01 08/29/21 15:30 08/29/21 16:00 Temperature Pulse Rate 60 61 59 L Respiratory Rate 21 26 H 20 Blood Pressure 116/65 112/66 108/57 L Pulse Oximetry 93 91 92 08/29/21 16:30 08/29/21 17:00 Temperature Pulse Rate 59 L 60 Respiratory Rate 23 18 Blood Pressure 93/57 L 131/73 Pulse Oximetry 91 93 Oxygen Delivery Method Room Air Narrative Exam Narrative: General: Alert male who is in no acute distress HEENT: Nontraumatic, pupils equal, oropharynx dry Neck: No lymphadenopathy Lungs: Breathing nonlabored, bibasilar crackles noted, no wheeze Heart: Normal S1 and S2, regular rate and rhythm without murmur Abdomen: Nondistended, nontender, no HSM Extremities: Warm, no edema Neurological: Affect normal, slightly confused with some memory recall difficulties oriented to person, day of week, month but not to place or year, no dysarthria, no face asymmetry, no unilateral weakness of upper or lower extremities, normal finger to nose and heel to grewal, normal light touch sensation on extremities Objective Labs Result Diagrams: 08/29/21 12:20 08/29/21 12:20 Labs: Laboratory Results - last 24 hr 08/29/21 08/29/21 08/29/21 11:58 12:20 12:20 WBC 6.4 RBC 5.25 Hgb 15.9 Hct 47.8 MCV 91.0 MCH 30.3 MCHC 33.3 RDW 13.1 Plt Count 161 Neut % (Auto) 78.0 H Lymph % (Auto) 13.4 L [place] % (Auto) 7.8 Eos % (Auto) 0.5 L Baso % (Auto) 0.3 Neut # (Auto) 5000 Lymph # (Auto) 900 L [place] # (Auto) 500 Eos # (Auto) 0 Baso # (Auto) 0 PT 12.6 INR 1.1 APTT 29 Sodium Potassium Chloride Carbon Dioxide BUN Creatinine Estimated GFR BUN/Creatinine Ratio Glucose Lactate Calcium Total Bilirubin AST ALT Alkaline Phosphatase Total Creatine Kinase CK-MB (CK-2) CK-MB (CK-2) Rel Index Troponin I Total Protein Albumin Globulin Albumin/Globulin Ratio TSH Prolactin Salicylates Acetaminophen Ethyl Alcohol SARS-CoV-2 (PCR) Positive H 08/29/21 08/29/21 08/29/21 12:20 12:20 12:20 WBC RBC Hgb Hct MCV MCH MCHC RDW Plt Count Neut % (Auto) Lymph % (Auto) [place] % (Auto) Eos % (Auto) Baso % (Auto) Neut # (Auto) Lymph # (Auto) [place] # (Auto) Eos # (Auto) Baso # (Auto) PT INR APTT Sodium 139 Potassium 3.8 Chloride 102 Carbon Dioxide 27 BUN 58 H Creatinine 1.87 H Estimated GFR 35.4 L BUN/Creatinine Ratio 31.0 H Glucose 176 H Lactate 1.3 Calcium 9.2 Total Bilirubin 0.7 AST 76 H ALT 73 H Alkaline Phosphatase 68 Total Creatine Kinase 129 CK-MB (CK-2) 1.24 CK-MB (CK-2) Rel Index 1.0 L Troponin I 0.036 H Total Protein 7.2 Albumin 4.0 Globulin 3.2 Albumin/Globulin Ratio 1.3 TSH 3.00 Prolactin 6.9 Salicylates < 1.0 Acetaminophen < 10 L Ethyl Alcohol < 10 SARS-CoV-2 (PCR) 08/29/21 14:46 WBC RBC Hgb Hct MCV MCH MCHC RDW Plt Count Neut % (Auto) Lymph % (Auto) [place] % (Auto) Eos % (Auto) Baso % (Auto) Neut # (Auto) Lymph # (Auto) [place] # (Auto) Eos # (Auto) Baso # (Auto) PT INR APTT Sodium Potassium Chloride Carbon Dioxide BUN Creatinine Estimated GFR BUN/Creatinine Ratio Glucose Lactate Calcium Total Bilirubin AST ALT Alkaline Phosphatase Total Creatine Kinase CK-MB (CK-2) CK-MB (CK-2) Rel Index Troponin I 0.035 H Total Protein Albumin Globulin Albumin/Globulin Ratio TSH Prolactin Salicylates Acetaminophen Ethyl Alcohol SARS-CoV-2 (PCR) Assessment & Plan Assessment & Plan narrative: 1. Acute COVID-19 with acute dehydration and renal failure -presents with loss of appetite, loss of taste and weakness and AVEL supportive of acute volume depletion -lactate normal -provide IV volume repletion, NS 1 L bolus -continues NS 100 cc/hour -diet as tolerated 2. Possible COVID-19 pneumonia -initial O2 sat 89% but during exam patient had O2 sats in the 90s on room air so I do not think he is actually in acute respiratory failure -no infiltrate on x-ray could be clouded by dehydration, does have some crackles on exam -received remdesivir and dexamethasone in the ED -can hold further specific COVID-19 pneumonia treatment as patient appears fairly stable from respiratory standpoint and remdesivir should be used with caution in renal failure -supplemental O2 as needed to keep O2 sat >= 88% -check for influenza co-infection 3. Acute kidney injury, prerenal -initial BUN 58, creatinine 1.87 in setting of decreased p.o. intake for the past week -provide IV hydration -monitor lytes, BUN and creatinine -hold patient's Celebrex, HCTZ and losartan 4. History of coronary artery disease, status post CABG -stable, intermediate troponin findings not of too much concern in setting of renal failure and acute illness -EKG: NSR, LVH, anterolateral ST and T-wave abnormality which is unchanged from recent EKG on 07/25/21 -continue aspirin 81 mg q.d., atorvastatin 10 mg q.d., metoprolol succinate 75 mg b.i.d. per home routine -sees Dr. Shaver for cardiology -telemetry monitoring 5. Hypothyroidism -continue levothyroxine 125 mcg q.d. per home routine 6. GERD -continue PPI per home routine Admit status: Inpatient Code status: Full code though does not want prolonged life support DVT prophylaxis: Lovenox renal dose -DPOA: Spouse Time Spent With Patient Critical Care time: I spent a total of [] minutes of critical care time on this patient's care today; this time is exclusive of procedural time.
[2021-08-29] MEDS: SODIUM CHLORIDE 0.9% 1,000 ML 1000 ML IV (18:40)
[2021-08-29 18:47] LABS: Appearance Urine UA CLEAR; Bilirubin Urine UA NEGATIVE (NEGATIVE); Color Urine UA YELLOW; Glucose Urine UA TRACE g/dL (Negative); Ketones Urine UA NEGATIVE (NEGATIVE); Leukocyte Esterase Urine UA NEGATIVE (NEGATIVE); Nitrite Urine UA NEGATIVE (Negative); Occult Blood Urine UA NEGATIVE (Negative); Protein Urine UA 1+ (Negative); Specific Gravity Urine UA 1.015 (1.000-1.035); Urobilinogen Urine UA 0.2 E.U./dL (0.2); pH Urine UA 5.5 (4.5-8.0)
[2021-08-29 18:49] LABS: UR Morphine/Opiate cutoff 300 Negative (Negative); Ur Creatinine Normal (Normal); Ur Specific Gravity Normal (Normal); Urine Amphetamines Negative (Negative); Urine Barbiturates Negative (Negative); Urine Benzodiazepines Negative (Negative); Urine Cocaine Negative (Negative); Urine MDMA Negative (Negative); Urine Methadone Negative (Negative); Urine Methamphetamines Negative (Negative); Urine Oxycodone Negative (Negative); Urine Phencyclidine Negative (Negative); Urine Tetrahydrocannabinol Negative (Negative); Urine Tricyclic Antidepressant Negative (Negative); Urine pH Normal (Normal)
[2021-08-29 18:53] LABS: Bacteria Urine None Seen; Culture Indicated Urine Cult Not Indicated; RBC Urine None Seen (0-5/HPF); WBC Urine None Seen (0-5/HPF)
--- NOTE | 2021-08-29 19:35 | PC.NURSE ---
Patient received from ER to room 226 approx [id number]. Oriented to room and call light, patient is calm and cooperative, but forgetful and unable to answer all questions. Patient states you should ask my that a couple times. Patient denies shortness of breath, chest pains, palpitations, n/v. Endorses some weakness or shaky ness in the legs with ambulation, denies falls. Up with assistance to bathroom for safety and patient was able to void in urinal. Patient states he has not really had anything to eat or drink for few days, states he has not had an appetite. Call light placed within reach, urinal placed within reach, patient instructed not get up alone. Bed alarm activated for safety.
[2021-08-29 19:56] LABS: Influenza A - CEPHEID Flu A NEGATIVE (NEGATIVE); Influenza B - CEPHEID Flu B NEGATIVE (NEGATIVE)
[2021-08-29] MEDS: SODIUM CHLORIDE 0.9% 1,000 ML 100 ML IV (20:03)
[2021-08-29] MEDS: METOPROLOL ER 50 MG TABLET 75 MG PO (21:36)
[2021-08-29] MEDS: PANTOPRAZOLE DR 20 MG TABLET PO (21:36)
[2021-08-30] VITALS (15 sets, daily range): BP systolic 116–155; BP diastolic 60–78; PULSE 55–67; RESP 16–24; TEMP 36.3–36.8; O2SAT 88–98
[2021-08-30 05:10] LABS: Add Manual Diff / Slide Review NO; Basophils Absolute Auto 0 /uL (0-100); Basophils Percent Auto 0.2 % (0-2); Eosinophils Absolute Auto 0 /uL (0-450); Hematocrit 43.6 % (41-53); Hemoglobin 14.6 g/dL (13.5-17.5); Lymphocytes Absolute Auto 600 /uL (1100-4500); Lymphocytes Percent Auto 16.8 % (25-40); Mean Corpuscular HGB Conc 33.5 % (30-36); Mean Corpuscular Hemoglobin 30.4 PG (26-34); Mean Corpuscular Volume 90.7 fL (80-100); Monocytes Absolute Auto 200 /uL (0-900); Monocytes Percent Auto 6.5 % (3-14); Neutrophils Absolute Auto 2500 /uL (1500-7000); Neutrophils Percent Auto 76.5 % (50-75); Platelet Count 153 X10^3/uL (150-400); Red Blood Cell Count 4.81 X10^6/uL (4.5-5.9); Red Cell Distribution Width 13.2 % (11.6-14.8); White Blood Cell Count 3.3 X10^3/uL (4.5-11.0)
[2021-08-30 05:12] LABS: Alanine Aminotransferase 61 IU/L (<50); Albumin 3.6 g/dL (3.5-5.0); Albumin Globulin Ratio 1.2 (1.0-2.8); Alkaline Phosphatase 52 U/L (38-126); Aspartate Aminotransferase 54 IU/L (17-59); BUN Creatinine Ratio 38.2 (6-22); Bilirubin Total 0.6 mg/dL (0.2-1.3); Blood Urea Nitrogen 47 mg/dL (9-20); Calcium 8.7 mg/dL (8.4-10.2); Carbon Dioxide 31 mmol/L (22-32); Chloride 105 mmol/L (98-107); Estimated Glomerular Filt Rate 57.4 mL/min (>60); Glucose 177 mg/dL (80-110); HEMOLYSIS 16 (0-50); Potassium 4.7 mmol/L (3.4-5.1); Sodium 140 mmol/L (137-145); Total Protein 6.6 g/dL (6.3-8.2)
[2021-08-30] MEDS: SODIUM CHLORIDE 0.9% 1,000 ML 100 ML IV (05:22)
[2021-08-30 05:24] LABS: Hemoglobin A1C% w Est Avg Glu 7.3 % (4.0-6.0)
[2021-08-30] MEDS: PANTOPRAZOLE DR 20 MG TABLET PO ×2 (06:14→20:36)
[2021-08-30] MEDS: LEVOTHYROXINE 125 MCG TABLET PO (06:14)
[2021-08-30] MEDS: INSULIN LISPRO 100 UNIT/ML 3ML VIAL SUBCUT ×4 (08:39→20:38)
[2021-08-30] MEDS: ASPIRIN 81 MG CHEW TAB PO (08:41)
[2021-08-30] MEDS: ATORVASTATIN 20 MG TABLET 10 MG PO (08:41)
[2021-08-30] MEDS: DEXAMETHASONE 10 MG/ML VIAL 6 MG IV (08:41)
[2021-08-30] MEDS: ENOXAPARIN 30 MG/0.3 ML SYRINGE SUBCUT (08:41)
[2021-08-30] MEDS: METOPROLOL ER 50 MG TABLET 75 MG PO (08:42)
--- NOTE | 2021-08-30 10:51 | CM.DANOTE ---
DCP: Case received, EMR reviewed. Was unable to meet with patient, due to his being positive for COVID, and attempted to reach patient by phone in room and cell phone, with no answer. Went ahead and completed DCP assessment based upon the information in patient's EMR. Patient is a 75 year old male who admitted yesterday afternoon to the care of the hospitalist team. PCP: Dr. Marquis. Payer: confirmed: Medicare/[employer]. Patient came to the hospital via private vehicle secondary to having some memory impairment, loss of appetite, and shakiness. Patient was diagnosed with acute COVID-19 with acute dehydration and renal failure. Patient's oxygen levels at 89%. Patient was vaccinated, but did not yet obtain his booster. Attempted to call patient in his room, as well as his cell phone, and did not get an answer. Nurse, Dolores, stated, he was improving. Could visualize that patient was sitting up having his breakfast. Patient resides in [facility] with his spouse, Alisha. Patient does have P.T. orders, so he will be working with them. Discussed patient during team rounds, and he most likely should be ready for discharge tomorrow. P: DCP to continue to follow closely for any needs. He will work with P.T. Patient most likely should discharge home tomorrow. Winsome Coffman RN/Drapery Supervisor Discharge Planning/Care Management CM Discharge Assessment Start: 08/30/21 10:39 Freq: Status: Active Protocol: Document 08/30/21 10:39 (Rec: 08/30/21 10:51 [id number]) Discharge Planning Assessment Assigned International Editorial Producer Winsome Coffman RN/Drapery Supervisor Advance Directives? No History Provided By Patient,Medical Record Prior Living Arrangements House Household Members spouse Type of transporation used prior to Drives own vehicle admit Independent with ADL's Yes Is patient alert and oriented? Yes Comment Attempted to call patient's room, and cell phone, and was unable to get him to answer. Caregiver for Another No Barriers to Discharge No Discharge Plan Home Transportation Arrangement Spouse Referrals Initiated None needed Review Status In Process Next Review Type Continued Stay Review
--- NOTE | 2021-08-30 12:29 | PM.PN.1 ---
Subjective Subjective Date Patient Seen: 08/30/21 Interval history: 75-year-old male with history of CAD, status post 4 vessel CABG in 2015, hypertension, hyperlipidemia, hypothyroidism lumbosacral spondylosis presents with 5 to six-day history of loss of appetite, diminished oral intake, extreme fatigue. Patient appeared dehydrated and in renal failure and mildly hypoxic but without respiratory distress or infiltrate on x-ray. Patient is overall doing significantly better, has improved appetite and cognition, ate most of his breakfast and renal function has significant improved on labs. His O2 sats are 88-90% at rest. Exam Vital Signs (past 8 hours): - 08/30/21 07:30 08/30/21 07:33 08/30/21 07:37 Temperature 98.3 F Pulse Rate 61 Respiratory Rate 17 Blood Pressure 144/76 H Pulse Oximetry 91 88 L 92 08/30/21 08:00 Temperature Pulse Rate Respiratory Rate Blood Pressure Pulse Oximetry 91 Oxygen Delivery Method Room Air Oxygen Flow Rate 1 Narrative Exam Narrative: General: Alert and cooperative male in no acute distress Lungs: Clear Heart: Regular rhythm Abdomen: Soft Extremities: No edema Neurological: Speech fluency and cognition appear much improved Objective Labs Result Diagrams: 08/30/21 04:45 08/30/21 04:45 Labs: Laboratory Results - last 24 hr 08/29/21 08/29/21 08/29/21 11:58 12:20 12:20 WBC 6.4 RBC 5.25 Hgb 15.9 Hct 47.8 MCV 91.0 MCH 30.3 MCHC 33.3 RDW 13.1 Plt Count 161 Neut % (Auto) 78.0 H Lymph % (Auto) 13.4 L [place] % (Auto) 7.8 Eos % (Auto) 0.5 L Baso % (Auto) 0.3 Neut # (Auto) 5000 Lymph # (Auto) 900 L [place] # (Auto) 500 Eos # (Auto) 0 Baso # (Auto) 0 PT 12.6 INR 1.1 APTT 29 Sodium Potassium Chloride Carbon Dioxide BUN Creatinine Estimated GFR BUN/Creatinine Ratio Glucose Hemoglobin A1c Lactate Calcium Total Bilirubin AST ALT Alkaline Phosphatase Total Creatine Kinase CK-MB (CK-2) CK-MB (CK-2) Rel Index Troponin I Total Protein Albumin Globulin Albumin/Globulin Ratio TSH Prolactin Urine Color Urine Appearance Urine pH Ur Specific [place] Urine Protein Urine Glucose (UA) Urine Ketones Urine Occult Blood Urine Nitrate Urine Bilirubin Urine Urobilinogen Ur Leukocyte Esterase Urine RBC Urine WBC Urine Bacteria Ur Culture Indicated? Nasal Screen MRSA (PCR) Salicylates U Opiates 300ng/mL cut Ur Oxycodone Screen Urine Methadone Screen Acetaminophen Ur Barbiturates Screen U Tricyclic Antidepress Ur Phencyclidine Scrn Ur Amphetamines Screen U Methamphetamines Scrn Ur MDMA Scrn (Ecstasy) U Benzodiazepines Scrn Urine Cocaine Screen U Marijuana (THC) Screen Ethyl Alcohol SARS-CoV-2 (PCR) Positive H Influenza A (RT-PCR) Influenza B (RT-PCR) 08/29/21 08/29/21 08/29/21 12:20 12:20 12:20 WBC RBC Hgb Hct MCV MCH MCHC RDW Plt Count Neut % (Auto) Lymph % (Auto) [place] % (Auto) Eos % (Auto) Baso % (Auto) Neut # (Auto) Lymph # (Auto) [place] # (Auto) Eos # (Auto) Baso # (Auto) PT INR APTT Sodium 139 Potassium 3.8 Chloride 102 Carbon Dioxide 27 BUN 58 H Creatinine 1.87 H Estimated GFR 35.4 L BUN/Creatinine Ratio 31.0 H Glucose 176 H Hemoglobin A1c Lactate 1.3 Calcium 9.2 Total Bilirubin 0.7 AST 76 H ALT 73 H Alkaline Phosphatase 68 Total Creatine Kinase 129 CK-MB (CK-2) 1.24 CK-MB (CK-2) Rel Index 1.0 L Troponin I 0.036 H Total Protein 7.2 Albumin 4.0 Globulin 3.2 Albumin/Globulin Ratio 1.3 TSH 3.00 Prolactin 6.9 Urine Color Urine Appearance Urine pH Ur Specific [place] Urine Protein Urine Glucose (UA) Urine Ketones Urine Occult Blood Urine Nitrate Urine Bilirubin Urine Urobilinogen Ur Leukocyte Esterase Urine RBC Urine WBC Urine Bacteria Ur Culture Indicated? Nasal Screen MRSA (PCR) Salicylates < 1.0 U Opiates 300ng/mL cut Ur Oxycodone Screen Urine Methadone Screen Acetaminophen < 10 L Ur Barbiturates Screen U Tricyclic Antidepress Ur Phencyclidine Scrn Ur Amphetamines Screen U Methamphetamines Scrn Ur MDMA Scrn (Ecstasy) U Benzodiazepines Scrn Urine Cocaine Screen U Marijuana (THC) Screen Ethyl Alcohol < 10 SARS-CoV-2 (PCR) Influenza A (RT-PCR) Influenza B (RT-PCR) 08/29/21 08/29/21 08/29/21 14:46 18:00 18:00 WBC RBC Hgb Hct MCV MCH MCHC RDW Plt Count Neut % (Auto) Lymph % (Auto) [place] % (Auto) Eos % (Auto) Baso % (Auto) Neut # (Auto) Lymph # (Auto) [place] # (Auto) Eos # (Auto) Baso # (Auto) PT INR APTT Sodium Potassium Chloride Carbon Dioxide BUN Creatinine Estimated GFR BUN/Creatinine Ratio Glucose Hemoglobin A1c Lactate Calcium Total Bilirubin AST ALT Alkaline Phosphatase Total Creatine Kinase CK-MB (CK-2) CK-MB (CK-2) Rel Index Troponin I 0.035 H Total Protein Albumin Globulin Albumin/Globulin Ratio TSH Prolactin Urine Color Yellow Urine Appearance Clear Urine pH 5.5 Ur Specific [place] 1.015 Urine Protein 1+ H Urine Glucose (UA) Trace H Urine Ketones Negative Urine Occult Blood Negative Urine Nitrate Negative Urine Bilirubin Negative Urine Urobilinogen 0.2 Ur Leukocyte Esterase Negative Urine RBC None seen Urine WBC None seen Urine Bacteria None seen Ur Culture Indicated? Cult not indicated Nasal Screen MRSA (PCR) Salicylates U Opiates 300ng/mL cut Negative Ur Oxycodone Screen Negative Urine Methadone Screen Negative Acetaminophen Ur Barbiturates Screen Negative U Tricyclic Antidepress Negative Ur Phencyclidine Scrn Negative Ur Amphetamines Screen Negative U Methamphetamines Scrn Negative Ur MDMA Scrn (Ecstasy) Negative U Benzodiazepines Scrn Negative Urine Cocaine Screen Negative U Marijuana (THC) Screen Negative Ethyl Alcohol SARS-CoV-2 (PCR) Influenza A (RT-PCR) Influenza B (RT-PCR) 08/29/21 08/29/21 08/30/21 18:45 20:15 04:45 WBC 3.3 L RBC 4.81 Hgb 14.6 Hct 43.6 MCV 90.7 MCH 30.4 MCHC 33.5 RDW 13.2 Plt Count 153 Neut % (Auto) 76.5 H Lymph % (Auto) 16.8 L [place] % (Auto) 6.5 Eos % (Auto) 0.0 L Baso % (Auto) 0.2 Neut # (Auto) 2500 Lymph # (Auto) 600 L [place] # (Auto) 200 Eos # (Auto) 0 Baso # (Auto) 0 PT INR APTT Sodium Potassium Chloride Carbon Dioxide BUN Creatinine Estimated GFR BUN/Creatinine Ratio Glucose Hemoglobin A1c Lactate Calcium Total Bilirubin AST ALT Alkaline Phosphatase Total Creatine Kinase CK-MB (CK-2) CK-MB (CK-2) Rel Index Troponin I Total Protein Albumin Globulin Albumin/Globulin Ratio TSH Prolactin Urine Color Urine Appearance Urine pH Ur Specific [place] Urine Protein Urine Glucose (UA) Urine Ketones Urine Occult Blood Urine Nitrate Urine Bilirubin Urine Urobilinogen Ur Leukocyte Esterase Urine RBC Urine WBC Urine Bacteria Ur Culture Indicated? Nasal Screen MRSA (PCR) Negative for mrsa Salicylates U Opiates 300ng/mL cut Ur Oxycodone Screen Urine Methadone Screen Acetaminophen Ur Barbiturates Screen U Tricyclic Antidepress Ur Phencyclidine Scrn Ur Amphetamines Screen U Methamphetamines Scrn Ur MDMA Scrn (Ecstasy) U Benzodiazepines Scrn Urine Cocaine Screen U Marijuana (THC) Screen Ethyl Alcohol SARS-CoV-2 (PCR) Influenza A (RT-PCR) Flu a negative Influenza B (RT-PCR) Flu b negative 08/30/21 08/30/21 04:45 04:45 WBC RBC Hgb Hct MCV MCH MCHC RDW Plt Count Neut % (Auto) Lymph % (Auto) [place] % (Auto) Eos % (Auto) Baso % (Auto) Neut # (Auto) Lymph # (Auto) [place] # (Auto) Eos # (Auto) Baso # (Auto) PT INR APTT Sodium 140 Potassium 4.7 Chloride 105 Carbon Dioxide 31 BUN 47 H Creatinine 1.23 Estimated GFR 57.4 L BUN/Creatinine Ratio 38.2 H Glucose 177 H Hemoglobin A1c 7.3 H Lactate Calcium 8.7 Total Bilirubin 0.6 AST 54 ALT 61 H Alkaline Phosphatase 52 Total Creatine Kinase CK-MB (CK-2) CK-MB (CK-2) Rel Index Troponin I Total Protein 6.6 Albumin 3.6 Globulin 3.0 Albumin/Globulin Ratio 1.2 TSH Prolactin Urine Color Urine Appearance Urine pH Ur Specific [place] Urine Protein Urine Glucose (UA) Urine Ketones Urine Occult Blood Urine Nitrate Urine Bilirubin Urine Urobilinogen Ur Leukocyte Esterase Urine RBC Urine WBC Urine Bacteria Ur Culture Indicated? Nasal Screen MRSA (PCR) Salicylates U Opiates 300ng/mL cut Ur Oxycodone Screen Urine Methadone Screen Acetaminophen Ur Barbiturates Screen U Tricyclic Antidepress Ur Phencyclidine Scrn Ur Amphetamines Screen U Methamphetamines Scrn Ur MDMA Scrn (Ecstasy) U Benzodiazepines Scrn Urine Cocaine Screen U Marijuana (THC) Screen Ethyl Alcohol SARS-CoV-2 (PCR) Influenza A (RT-PCR) Influenza B (RT-PCR) [facility] Medical History Dyslipidemia Hypertension Hypothyroid Obesity (BMI 30.0-34.9) Spondylosis without myelopathy or radiculopathy, lumbosacral region Surgical History History of left shoulder replacement S/P CABG x 4 (~2014) Family History Father Heart disease Stroke Mother Heart disease Diabetes mellitus Social History household members: spouse Smoking Status: Former smoker Assessment & Plan Assessment & Plan narrative: 1. Acute COVID-19 with acute dehydration and renal failure -presents with loss of appetite, loss of taste and weakness and AVEL supportive of acute volume depletion -lactate normal -provided IV volume repletion, NS 1 L bolus -NS 100 cc/hour, discontinued IV fluids 08/29 as patient taking adequate p.o. -diet as tolerated 2. Acute hypoxic respiratory failure with mild COVID-19 pneumonia -initial O2 sat 89%, current sat 88-90% on room air and patient is not in respiratory distress -no infiltrate on x-ray could be clouded by dehydration, he did have some crackles on exam -received remdesivir and dexamethasone in the ED -continue remdesivir and dexamethasone but probably will not need a full course -supplemental O2 as needed to keep O2 sat >= 88% -influenza a and B negative 3.? Acute kidney injury, prerenal, resolving -initial BUN 58, creatinine 1.87 in setting of decreased p.o. intake for the past week -provided IV hydration -monitor lytes, BUN and creatinine -holding patient's Celebrex, HCTZ and losartan 4. History of coronary artery disease, status post CABG -stable, intermediate troponin findings not of too much concern in setting of renal failure and acute illness -EKG:? NSR, LVH, anterolateral ST and T-wave abnormality which is unchanged from recent EKG on 07/25/21 -continue aspirin 81 mg q.d., atorvastatin 10 mg q.d., metoprolol succinate 75 mg b.i.d. per home routine -sees Dr. Shaver for cardiology -telemetry monitoring 5. Hypothyroidism -continue levothyroxine 125 mcg q.d. per home routine 6.? GERD -continue PPI per home routine Patient with improving clinical course and hopefully can discharge home tomorrow Sunday. Admit status: Inpatient Code status:? Full code though does not want prolonged life support DVT prophylaxis:? Lovenox DPOA: Spouse Time Spent With Patient Critical Care time: I spent a total of [] minutes of critical care time on this patient's care today; this time is exclusive of procedural time.
--- NOTE | 2021-08-30 13:13 | DIET.CONS ---
Addendum entered by Senia Olivera 08/30/21 13:24: Recc pt be switched to consistent carb diet secondary to A1c 7.3 Original Note: Dietary Consultation Note Admission Date: 08/29/2021 15:41 Assessment: 75y M admitted for acute covid PNA with acute dehydration and renal failure referred to nutrition for poor intake. Pt reports loss of appetite, loss of taste, weakness, and metabolic encephalopathy. Associated Labs on admit: BUN 58 H, Cr 1.87 H, eGFR 35.4 L with baseline renal values WNL as of 1mo ago. Ht: 182.88 cm Wt: 94 kg (-7% in <1mo) BMI: 28.0 UBW: 99-102kg x3y Last BM: 08/30/21 (08/30/21 10:59) MNA: 9 Corey Score: 20 Diet: 08/29/21 Dinner General (Regular) Diet Diet Modifications: Labs: RBC 4.81 X10^6/uL (4.5-5.9) 08/30/21 04:45 Hgb 14.6 g/dL (13.5-17.5) 08/30/21 04:45 Hct 43.6 % (41-53) 08/30/21 04:45 Creatinine 1.23 mg/dL (0.66-1.25) 08/30/21 04:45 Hemoglobin A1c 7.3 % (4.0-6.0) H 08/30/21 04:45 Lactate 1.3 mmol/L (0.7-2.1) 08/29/21 12:20 Nutrition Diagnosis: Acute Moderate Malnutrition r/t difficulty eating and hydrating secondary to acute covid PNA aeb 7% unintentional weight loss in <1mo, POs meeting <25% EER x6d, pt reports taste changes, severely reduced appetite, and weakness since testing positive for covid, pt admitted c renal failure, dehydration. Interventions: 1. Recc ONS Glucerna pudding bid and Ensure Max once daily to support nutrition status until pt able to meet more of his nutrition needs with actual meals. EER: 2,300kcals (25kcal/kg), 94g PRO (1g/kg) Monitoring/Evaluations: ONS tolerance, POs Electronically Signed by: Senia Olivera 08/30/21 13:[address] [address]
[2021-08-30] MEDS: REMDESIVIR 100 MG in SODIUM CHLORIDE 0.9% 230 ML 250 ML IV (16:39)
--- NOTE | 2021-08-30 16:50 | PT.IIE ---
Current Diagnoses COVID-19 (08/29/21) Medical History (Last Reviewed 08/29/21 @ 13:57 by Anne Sanabria DO) Dyslipidemia Hypertension Hypothyroid Obesity (BMI 30.0-34.9) Spondylosis without myelopathy or radiculopathy, lumbosacral region Physical Therapy Inpatient Evaluation/Re-Eval M1 PT/OT-IP Prior Functional Status Start: 08/30/21 11:56 Freq: NEEDED Status: Active Protocol: Document 08/30/21 16:50 AW (Rec: 08/30/21 17:02 AW [id number]) Medical Review Prior Functional Status Medical History Reviewed Yes Communication Per chart notes, pt has some dementia at baseline and was more confused than usual when he presented to ED. On assessment, pt has trouble communicating why he came to the hospital, is tangential in conversation, and perseverates on his chronic back pain. Mobility and Gait Pt states he tends to cruise furniture secondary to back pain but does not use any assistive device Activities of Daily Living and IADL's Pt reports independence with his ADL's and states he does not drive much. Social History Household Members spouse Living Arrangements RV Number of Floors (Floors) One Floor Number of Stairs To Enter/Railing? 5 NOA with R rail ascending Home Environment Standard Height Toilet,Tub/ Shower Additional Social History Comment Pt is tangential during history-taking but states he lives with his , Alisha, in a 40' fifth wheel. He says she or they manage an RV site. M2 PT-IP Current Condition Start: 08/30/21 11:56 Freq: NEEDED Status: Active Protocol: Document 08/30/21 16:50 AW (Rec: 08/30/21 17:02 AW [id number]) Physical Therapy Current Condition Current Condition Evaluation Date 08/30/21 Treatment Diagnosis COVID pna; hypoxic respiratory failure; impaired balance and gait Onset Date 08/29/21 M3 PT-IP Subjective Start: 08/30/21 11:56 Freq: NEEDED Status: Active Protocol: Document 08/30/21 16:50 AW (Rec: 08/30/21 17:02 AW [id number]) Subjective Physical Therapy Visit Type Type Initial Evaluation Visit Start Time 16:20 Visit Stop Time 16:50 Total Visit Minutes 30 Physical Therapy Visit Comments Patient Comments I don't usually walk very far because of my back pain. Therapy Pain Assessment Pain Present Pain Present Denied Pain M4 PT-IP Mobility and Gait Start: 08/30/21 11:56 Freq: NEEDED Status: Active Protocol: Document 08/30/21 16:50 AW (Rec: 08/30/21 17:21 AW [id number]) PT-Bed Mobility Assessment Supine to Sit Supine to Sit Standby Assistance Scooting Scooting to Edge of Bed Standby Assistance PT-Transfer Assessment Sit to and From Stand Sit to and from Stand Standby Assistance,Use of Upper Extremities Equipment Transfer Assistive Device None Orthotic/Prosthetic Devices or Brace: No Transfers Transfer Destination Chair Transfer Technique pt ambulated withotu AD Transfer Ability Level of Assist Standby Assistance Comments Mobility Comments Pt was sitting up in the chair as PT arrived. BP 159/79 HR 60 SpO2 91% on room air. He agreed to get up with PT and sat up EOB SBA. He was able to sit with and without UE support SBA. He stood from the bed SBA and walked around the room with assist for line management and SBA/CGA for steadiness. SpO2 dropped to 83 % on room air after 40 foot ambulation trial. He sat in the chair and PT applied O2 via NC at 2L/min. SpO2 improved to 88% within two minutes. BP was 183/84 HR 60. Pt stood and ambulated another 40 feet with supplemental O2 and maintained 88-91%. BP 151/ 77 HR 59. Pt was left in the chair with call light in reach as RN arrived. Gait Assessment Gait Gait Assistance Required: Standby Assistance,Contact Guard Assist Distance (Feet) 40 Assistive Devices Assistive Device None Orthotic/Prosthetic Devices or Brace: No Gait Deviations General Gait Pattern Decreased Stride Length, Decreased Feet Clearance, Lateral Trunk Lean,Narrow Based Gait Factors Limiting Gait Function Factors Limiting Gait Function Decreased Activity Tolerance, Pain,Poor Balance,Poor Safety Awareness,Respiratory Distress Comments Gait Comments Gait was notable for narrow base of support and RLE crossing midline ~every 5th stride. Pt attributed deviations to bed rest but gait did not improve with distance. See mobility comments for SpO2 readings on room air and on 2L/min Stair Climbing Assessment Comments Stair Climbing Comments Not assessed. PT-Balance Assessment Sitting Balance and Reactions Static Sitting Balance Ability Good Dynamic Sitting Balance Ability Good Standing Balance and Reactions Static Standing Balance Ability Fair Dynamic Standing Balance Ability Fair Device Used no AD M5 PT-IP Objective Assessments Start: 08/30/21 11:56 Freq: NEEDED Status: Active Protocol: Document 08/30/21 16:50 AW (Rec: 08/30/21 17:21 AW [id number]) Orientation Orientation/Cognition Level of Alertness Confusional State Orientation Name,Month,Place Language Function Ability No Deficits Noted Safety Awareness Decreased Safety Awareness Memory Description Short Term Impaired Comments Speech content was tangential and pt was a difficult historian. Gross Range of Motion Lower Extremity ROM Assessment Within Functional Limits Strength Lower Extremity Strength Hip 4/5 Knee 4+/5 Ankle 4+/5 Sensation Assessment Sensation Gross Sensation WNL Muscle Tone Muscle Tone WNL Yes M6 PT-IP Treatment Start: 08/30/21 11:56 Freq: NEEDED Status: Active Protocol: Document 08/30/21 16:50 AW (Rec: 08/30/21 17:21 AW [id number]) Physical Therapy Treatment Education Education Provided Safety M7 PT-IP Assessment and Plan Start: 08/30/21 11:56 Freq: NEEDED Status: Active Protocol: Document 08/30/21 16:50 AW (Rec: 08/30/21 17:29 AW [id number]) PT Summary Assessment and Plan Potential Rehabilitation Potential Good Status of Condition at Evaluation Evolving Summary Impairments Pain,Strength,Cognition,Gait Assessment Summary Enio is a 75 yo man admitted with acute hypoxic respiratory failure secondary to COVID pneumonia. He is a challenging historian and chart does indicate some level of underlying dementia which is perhaps exacerbated by current condition. Per pt report, he is independent in all regards at baseline but mobility is limited to some degree by chronic back pain. Dynamic balance deficits are affecting his mobility and pt does desat to 83-85% on room air with short ambulation trial. He is able to maintain SpO2 88 -91% on 2L/min supplemental O2 via nasal cannula. Pt would benefit from continued acute PT and may need home health services to improve activity tolerance and mobility independence. PT will continue to assess for safe discharge plan. Goals Bed Mobility Goal Independent Transfer Goal Independent Gait Goal Independent Gait Distance 150 Other Goals - up/down 5 steps with unilateral rail SBA with SpO2 90% or greater Days to Meet Goals 5 Frequency of Treatment Frequency Of Treatment Once a Day Treatment Plan Physical Therapy Treatment Plan Bed Mobility Training,Transfer Training,Gait Training, Therapeutic Exercise,Balance Retraining,Discharge Planning Other Recommendations and Next Treatment additional ambulation trials Focus on room air; consider step stool for stair goal. Precautions Other Precautions COVID (+) Recommendations To Nursing Amount of Assist Needed Standby Assistance,1 Person Assist Discharge Recommendations PT Discharge Recommendations Home with Assistance,Home Health Transportation Needs at Discharge Private Vehicle
[2021-08-30] MEDS: METOPROLOL ER 25 MG TABLET 75 MG PO (20:36)
[2021-08-30] MEDS: SODIUM CHLORIDE 0.9% FLUSH 10 ML IV (20:37)
[2021-08-31] VITALS (19 sets, daily range): BP systolic 109–170; BP diastolic 61–85; PULSE 52–71; RESP 16–32; TEMP 36.4–36.6; O2SAT 89–97
[2021-08-31 05:11] LABS: Alanine Aminotransferase 48 IU/L (<50); Albumin 3.6 g/dL (3.5-5.0); Albumin Globulin Ratio 1.3 (1.0-2.8); Alkaline Phosphatase 53 U/L (38-126); Aspartate Aminotransferase 40 IU/L (17-59); BUN Creatinine Ratio 36.9 (6-22); Bilirubin Total 0.6 mg/dL (0.2-1.3); Blood Urea Nitrogen 38 mg/dL (9-20); Calcium 9.1 mg/dL (8.4-10.2); Carbon Dioxide 30 mmol/L (22-32); Chloride 104 mmol/L (98-107); Estimated Glomerular Filt Rate > 60.0 mL/min (>60); Globulin 2.7 g/dL (1.7-4.1); Glucose 178 mg/dL (80-110); HEMOLYSIS < 15 (0-50); Potassium 3.9 mmol/L (3.4-5.1); Sodium 137 mmol/L (137-145); Total Protein 6.3 g/dL (6.3-8.2)
[2021-08-31 05:12] LABS: Add Manual Diff / Slide Review SLIDE REVIEW; Basophils Absolute Auto 0 /uL (0-100); Basophils Percent Auto 0.2 % (0-2); Eosinophils Absolute Auto 0 /uL (0-450); Hemoglobin 14.9 g/dL (13.5-17.5); Lymphocytes Absolute Auto 700 /uL (1100-4500); Lymphocytes Percent Auto 10.5 % (25-40); Mean Corpuscular HGB Conc 33.8 % (30-36); Mean Corpuscular Hemoglobin 30.4 PG (26-34); Monocytes Absolute Auto 600 /uL (0-900); Monocytes Percent Auto 9.9 % (3-14); Neutrophils Absolute Auto 5100 /uL (1500-7000); Neutrophils Percent Auto 79.4 % (50-75); Platelet Count 181 X10^3/uL (150-400); Red Blood Cell Count 4.89 X10^6/uL (4.5-5.9); White Blood Cell Count 6.5 X10^3/uL (4.5-11.0)
[2021-08-31] MEDS: LEVOTHYROXINE 125 MCG TABLET PO (05:49)
[2021-08-31 06:53] LABS: RBC Morphology Normal Morphology
[2021-08-31] MEDS: PANTOPRAZOLE DR 20 MG TABLET PO ×2 (09:08→21:46)
[2021-08-31] MEDS: ATORVASTATIN 20 MG TABLET 10 MG PO (09:08)
[2021-08-31] MEDS: ASPIRIN 81 MG CHEW TAB PO (09:08)
[2021-08-31] MEDS: ENOXAPARIN 40 MG/0.4 ML SYRINGE SUBCUT (09:08)
[2021-08-31] MEDS: INSULIN LISPRO 100 UNIT/ML 3ML VIAL SUBCUT ×2 (09:13→21:36)
[2021-08-31] MEDS: SODIUM CHLORIDE 0.9% FLUSH 10 ML IV ×2 (09:14→21:47)
--- NOTE | 2021-08-31 11:51 | DIET.PN1 ---
Dietary Progress Note RD Note: RD alerted by pharmacy pt needing DM nutrition education. Nursing declines for pt at this time secondary to pt confusion, pt inappropriate for nutrition education at this time. BGs 148-216 this hospitalization. Ht: 182.88 cm Wt: 94.3 kg BMI: 28.0 Last BM: 08/30/21 (08/30/21 10:59) MNA: 9 Corey Score: 21 Diet: 08/29/21 Dinner General (Regular) Diet Diet Modifications: glucerna bid (pudding thick), Ensure Max c lunch Nutrition Percent Meal Consumed 100% 08/30/21 18:00 Labs: RBC 4.89 X10^6/uL (4.5-5.9) 08/31/21 04:49 Hgb 14.9 g/dL (13.5-17.5) 08/31/21 04:49 Hct 44.0 % (41-53) 08/31/21 04:49 Creatinine 1.03 mg/dL (0.66-1.25) 08/31/21 04:49 Hemoglobin A1c 7.3 % (4.0-6.0) H 08/30/21 04:45 Lactate 1.3 mmol/L (0.7-2.1) 08/29/21 12:20 Nutrition Diagnosis: altered nutrition related laboratory values r/t endocrine dysfunction aeb pt new dx DM2 with A1c 7.3, BGs 140s-216 this hospitalization. Interventions: 1. [facility] outpatient DSME referral from pt PCP as pt newly dx DM2 this hospitalization. Monitoring/Evaluations: RD will attempt DM education this afternoon if pt less confused, or will defer to DSME in OP setting. Electronically Signed by: Senia Olivera 08/31/21 11:51 Clinical Diet[address] [id number]
--- NOTE | 2021-08-31 12:56 | CM.DPC ---
Addendum entered by SARAH Beck 08/31/21 14:49: ADD: Per OT, pt scored 5/30 on SLUMS but some categories pt stated that he just didn't care enough to answer or think about. Unclear if COVID has exacerbated his confusion and being in the hospital. Per RN, pt to be placed on tele now and likely not d/c until tomorrow. Plan: SW to follow for plan of d/c home with spouse and new [facility] referral and will need to just fax d/c summary when available at discharge. BF Original Note: DCP Home with HH Per MD, pt may be stable for d/c home today with HH and signed F2F and awaiting to confirm pt is stable for d/c. Per RN, pt was transitioned to room air and seems to be tolerating and likely no need for home O2. Per PT, recommending home with spouse assist and HH. 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 Pt's PCP is in [facility], Dr. Ekaterina Marquis, as they have been struggling to get established with local PCP accepting Medicare and so they are still established at the [facility]. SW discussed PT recommendations and mobility and discussed HH services and frequency and spouse denies any hx of HH but very agreeable with HH at d/c and aware that it may be today. No HH preference and SW made referral to [facility] based on [facility] and [facility] availability within 48 hrs on Sunday or on Sunday. SW faxed referral along with signed F2F and MD orders. OT ordered for SLUMS/cog assessment per spouse request and cognition concerns and OT to eval after lunch. Spouse remaining in her car near the hospital awaiting to hear if pt stable for d/c today. Spouse has some minor symptoms of COVID (sore throat, headache, fatigue) but has not been tested and assuming she is COVID+ and has been quarantining. Plan: SW to follow for possible d/c home today or tomorrow via spouse POV and [facility] referral and they just need d/c summary at discharge. SARAH Beck
--- NOTE | 2021-08-31 14:35 | PT.IPTN ---
Current Diagnoses COVID-19 (08/29/21) Physical Therapy Treatment Note M2 PT-IP Current Condition Start: 08/30/21 11:56 Freq: NEEDED Status: Active Protocol: Document 08/30/21 16:50 AW (Rec: 08/30/21 17:02 AW [id number]) Physical Therapy Current Condition Current Condition Evaluation Date 08/30/21 Treatment Diagnosis COVID pna; hypoxic respiratory failure; impaired balance and gait Onset Date 08/29/21 M3 PT-IP Subjective Start: 08/30/21 11:56 Freq: NEEDED Status: Active Protocol: Document 08/31/21 14:35 AB (Rec: 08/31/21 16:23 AB [id number]) Subjective Physical Therapy Visit Type Type Treatment Note Visit Start Time 14:35 Visit Stop Time 15:19 Total Visit Minutes 44 Number of TAX EXAMINING TECHNICIAN Visits 0 Physical Therapy Visit Comments Patient Comments agreeable to do PT; pt with confusion M4 PT-IP Mobility and Gait Start: 08/30/21 11:56 Freq: NEEDED Status: Active Protocol: Document 08/31/21 14:35 AB (Rec: 08/31/21 16:23 AB [id number]) PT-Transfer Assessment Sit to and From Stand Sit to and from Stand Contact Guard Assistance,1 Person Assistance,Use of Upper Extremities Equipment Transfer Assistive Device Gait Belt,Front Wheeled Walker Orthotic/Prosthetic Devices or Brace: No Gait Assessment Gait Gait Assistance Required: Contact Guard Assist Distance (Feet) 100 Able to Maintain Weight Bearing Status Yes During Gait Assistive Devices Assistive Device Gait Belt,Front Wheeled Walker Orthotic/Prosthetic Devices or Brace: No Gait Deviations General Gait Pattern Ataxic,Decreased Stride Length Factors Limiting Gait Function Factors Limiting Gait Function Decreased Activity Tolerance, Decreased Strength,Difficulty Following Directions,Poor Balance,Poor Safety Awareness, Respiratory Distress Comments Gait Comments checked with nursing. NAC stated that pt just finished with OT and that pt has increase confusion and is impulsive. pt sitting on chair and c/o back pain. opted to use FWW at this time for safety. pt with O2 on and O2 sat at 90% at rest. pt completed sit to stand CGA and ambulated in room using FWW CGA to min A with LOB x 2 with RLE crossing over LLE. pt has decrease safety awareness and cued for safety. pt ambulated ~ 100 ft. sat back on chair and O2 sat after ambulation: 82-84%. cued for deep breathing. o2 sat increased to ~ 88-89% > 1 min but pt appears not to be in distress but with confusion. positioned pt on chair. call light and table placed within reach. M5 PT-IP Objective Assessments Start: 08/30/21 11:56 Freq: NEEDED Status: Active Protocol: Document 08/30/21 16:50 AW (Rec: 08/30/21 17:21 AW [id number]) Orientation Orientation/Cognition Level of Alertness Confusional State Orientation Name,Month,Place Language Function Ability No Deficits Noted Safety Awareness Decreased Safety Awareness Memory Description Short Term Impaired Comments Speech content was tangential and pt was a difficult historian. Gross Range of Motion Lower Extremity ROM Assessment Within Functional Limits Strength Lower Extremity Strength Hip 4/5 Knee 4+/5 Ankle 4+/5 Sensation Assessment Sensation Gross Sensation WNL Muscle Tone Muscle Tone WNL Yes M6 PT-IP Treatment Start: 08/30/21 11:56 Freq: NEEDED Status: Active Protocol: Document 08/31/21 14:35 AB (Rec: 08/31/21 16:23 AB [id number]) Physical Therapy Treatment Education Education Provided Safety M7 PT-IP Assessment and Plan Start: 08/30/21 11:56 Freq: NEEDED Status: Active Protocol: Document 08/31/21 14:35 AB (Rec: 08/31/21 16:23 AB [id number]) PT Summary Assessment and Plan Potential Rehabilitation Potential Fair Summary Impairments Pain,ROM,Strength,Balance, Coordination,Sensation,Tone, Cognition,Bed Mobility, Transfers,Gait,Activity Tolerance Progress Towards Goals Slow Progress due to Activity Tolerance Assessment Summary pt requiring CGA to min A with ambulation using FWW with LOB x 2 and cued for safety. pt with confusion affecting safety awareness. O2 sat decrease to 82-84% after ambulation with O2 on. pt plans to go home with spouse to assist him. will continue to assess progress. Goals Bed Mobility Goal Independent Transfer Goal Independent Gait Goal Independent Gait Distance 150 Other Goals - up/down 5 steps with unilateral rail SBA with SpO2 90% or greater Days to Meet Goals 5 Frequency of Treatment Frequency Of Treatment Once a Day Treatment Plan Physical Therapy Treatment Plan Bed Mobility Training,Transfer Training,Gait Training, Therapeutic Exercise,Balance Retraining,Discharge Planning Precautions Other Precautions COVID (+) Recommendations To Nursing Amount of Assist Needed 1 Person Assist Discharge Recommendations PT Discharge Recommendations Home with Assistance
--- NOTE | 2021-08-31 14:42 | OT.IP.EVAL ---
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 On assessment, pt has trouble communicating why he came to the hospital, is tangential in conversation, and perseverates on various topics. Mobility and Gait Pt states he tends to cruise furniture secondary to back pain but does not use any assistive device Activities of Daily Living and IADL's Pt reports independence with his ADL's and states he does not drive much. Social History Household Members spouse Living Arrangements RV Number of Floors (Floors) One Floor Number of Stairs To Enter/Railing? 5 NOA with R rail ascending Home Environment Standard Height Toilet,Tub/ Shower Additional Social History Comment Pt is tangential during history-taking but states he lives with his , Alisha, in a 40' fifth wheel. He says she or they manage an RV site. M2 OT-IP Current Condition Start: 08/31/21 15:22 Freq: Status: Active Protocol: Document 08/31/21 13:58 [facility] (Rec: 08/31/21 15:38 [facility] [id number]) Occupational Therapy Current Condition Current Condition Evaluation Date 08/31/21 Treatment Diagnosis COVID +, confusion Diagnosis Onset Date 08/29/21 M3 OT- IP Subjective and Pain Start: 08/31/21 15:22 Freq: Status: Active Protocol: Document 08/31/21 13:58 [facility] (Rec: 08/31/21 15:38 [facility] [id number]) OT- Subjective Occupational Therapy Visit Type Type Initial Evaluation Visit Start Time 13:58 Visit Stop Time 14:42 Total Visit Minutes 44 Occupational Therapy Visit Comments Patient Comments Pt agreed to work with OT. Patient/Caregiver Goals To go home. OT Pain Assessment Pain When Pain Assessed At Rest Pain Present Pain Present Denied Pain M4 OT- IP ADL's Start: 08/31/21 15:22 Freq: Status: Active Protocol: Document 08/31/21 13:58 [facility] (Rec: 08/31/21 15:38 [facility] [id number]) OT [id number] Comments OT Self-Feeding Comments NOt at meal time. OT ADL-Grooming General Evaluation Grooming Ability Standby Assistance Comments OT Grooming Comments VC to point out items in front of him. OT ADL-Oral Care General Eval Oral Care Ability Independent OT ADL-Dressing General Eval Lower Body Dressing Ability Independent Comments OT Dressing Comments Pt able to ila/doff socks while seated. Pt aware does not stand to do his socks due to his chronic back pain. OT ADL-Toileting Comments OT Toileting Comments Pt did not perform. OT ADL-Bathing Comments OT Bathing Comments Not performed. M5 OT- IP IADL's Start: 08/31/21 15:22 Freq: Status: Active Protocol: Document 08/31/21 13:58 [facility] (Rec: 08/31/21 15:38 [facility] [id number]) OT-Instrumental Activities of Daily Living Home Safety Awareness Awareness of Need for Assistance at Home Decreased Awareness Ability to Problem Solve Emergency Unable to Problem Solve Situations Home Safety Comments Pt having difficulty to come up with the numbers of 911 in case of emergency, Pt not remembering how to use the fire extinguisher, and states initially would give out his credit card if asked. Medication Management Medication Management Comments Pt states does his own. Money Management Money Management Comments Pt states both he and his do the bills. Driving Driving Concerns Identified Regarding Safety M6 OT- IP Functional Cognition Start: 08/31/21 15:22 Freq: Status: Active Protocol: Document 08/31/21 13:58 [facility] (Rec: 08/31/21 15:38 [facility] [id number]) Cognitive Factors Limiting Selfcare Function Cognitive Ability Level of Alertness Alert,Confusional State Patient Orientation Name Attention Span Ability Capable of Focused Attention, Capable of Sustained Attention Ability to Follow Commands Able to Follow One Step Commands with Increased Time, Able to Follow One Step Commands with Repetition Memory Description Short Term Impaired,Working Impaired Safety Awareness Underestimates Need for Assistance Problem Solving Ability Unable to Identify Errors, Needs Assist to Identify Solutions Executive Function Ability Unable to Filter Distractions, Unable to Make Plans,Unable to Organize Plans Cognitive Tests SLUMS Pt scored 5/30 and only able to correctly answer that he is in [place] state, able to add 20+3, able to name 8 animals in 1 minute, and able to draw an X on the triangle and point out the largest shape. Pt's score implies dementia. Cognitive Comments Cognitive Assessment Comments Pt admits that his memory has decreased in the past 5 years and that he just does not pay attention to things anymore. Pt did not know that he was in the hospital or that he has COVID. Pt feels that his tells him what to do too much lately. Pt has poor insight to his deficits at this time. M7 OT- IP Mobility and Balance Start: 08/31/21 15:22 Freq: Status: Active Protocol: Document 08/31/21 13:58 [facility] (Rec: 08/31/21 15:38 [facility] [id number]) OT-Transfer Assessment Sit to and From Stand Sit to and from Stand Independent Transfers Transfer Ability Standby Assistance Technique Transfer Destination Chair Comments Mobility Comments Pt able to walk in the room with close SBA and assist to manage O2 tubing. OT- Balance Assessment Sitting Balance and Reactions Static Sitting Balance Ability Normal Dynamic Sitting Balance Ability Normal Standing Balance and Reactions Static Standing Balance Ability Good M8 OT- IP Objective Assessments Start: 08/31/21 15:22 Freq: Status: Active Protocol: Document 08/31/21 13:58 [facility] (Rec: 08/31/21 15:38 [facility] [id number]) OT Gross Range of Motion Upper Extremity Range of Motion Assessment Within Functional Limits OT Strength Upper Extremity Strength Assessment Within Functional Limits OT- Coordination Assessment Upper Extremity Finger to Nose Test Within Functional Limits OT-Muscle Tone Assessment Muscle Tone WNL Yes M9 OT- IP Assessment and Plan Start: 08/31/21 15:22 Freq: Status: Active Protocol: Document 08/31/21 13:58 [facility] (Rec: 08/31/21 15:38 [facility] [id number]) OT Summary Assessment and Plan Potential Rehabilitation Potential Fair Analytic Complexity at Evaluation Moderate Summary OT Impairments Balance,Functional Cognition, Functional Mobility,Dressing, Toileting,Bathing,Toilet Transfers,Shower Transfers, Activity Tolerance Progress Towards Goals Progressing Toward Goals Assessment Summary Pt MOD complexity here due to COVID+ and confusion. Pt is very tangential and having difficulty to get his words out. Pt is able to move in the room on his own with SBA, mainly assist for O2 tubing management needs. Pt would benefit from 24/7 assist mainly due to his decreased cognition and safety awareness . Pt scored 5/30 on the SLUMS which implies dementia. Pt has poor insight to his needs and deficits. Goals Grooming Goal Independent Dressing Goal Independent Toileting Goal Standby Assistance Bathing Goal Standby Assistance Toilet Transfer Goal Independent Shower Transfer Goal Independent Days to Meet Goals 3 Frequency of Treatment Frequency Of Treatment Once a Day Treatment Plan OT Treatment Plan ADL Training,Functional Cognition Training,Functional Mobility,Patient/Family Education,Discharge Planning Other Treatment Recommendations and Next shower Treatment Focus Discharge Recommendations OT Discharge Recommendations Home with 24/7 Assist Available Home Equipment Needs shower chair Transportation Needs at Discharge Private Vehicle
[2021-08-31] MEDS: DEXAMETHASONE 10 MG/ML VIAL 6 MG IV (14:46)
[2021-08-31] MEDS: QUETIAPINE 25 MG TABLET 50 MG PO (17:15)
[2021-08-31] MEDS: HALOPERIDOL 5 MG/ML VIAL 2 MG IV (17:16)
--- NOTE | 2021-08-31 17:43 | P.PN_ITS ---
Subjective Subjective Date Patient Seen: 08/31/21 Interval history: The patient 75-year-old male admitted w COVID pneumonia. The patient does have a history of dementia. He has been getting increasingly agitated today. The patient received a 2nd dose of Decadron. He was previously on remdesivir in addition to his metoprolol and had a significant drop in his heart rate. The metoprolol dosing was decreased. Remdesivir has since been held. Patient was quite agitated earlier, he is confused, he was demanding to leave. After discussing with his as well as the patient he was given IV Haldol for agitation, he was also started on Seroquel 50 as well. The patient is calm now and sleeping. Exam Vital Signs (past 8 hours): - 08/31/21 12:00 08/31/21 16:00 Temperature 97.6 F Pulse Rate 60 Respiratory Rate 22 Blood Pressure 124/71 Pulse Oximetry 92 92 Oxygen Delivery Method Room Air Oxygen Flow Rate 0 Narrative Exam Narrative: Elderly gentleman lying in bed Resp Other: Lungs decreased breath sounds Cardio Other: Cardiac exam: Regular rate and rhythm normal S1-S2 GI Other: Abdomen: Soft nontender nondistended Extrem Other: Extremities: No edema Objective Labs Result Diagrams: 08/31/21 04:49 08/31/21 04:49 Labs: Laboratory Results - last 24 hr 08/31/21 08/31/21 04:49 04:49 WBC 6.5 D RBC 4.89 Hgb 14.9 Hct 44.0 MCV 90.0 MCH 30.4 MCHC 33.8 RDW 13.0 Plt Count 181 Neut % (Auto) 79.4 H Lymph % (Auto) 10.5 L Clare % (Auto) 9.9 Eos % (Auto) 0.0 L Baso % (Auto) 0.2 Neut # (Auto) 5100 Lymph # (Auto) 700 L Clare # (Auto) 600 Eos # (Auto) 0 Baso # (Auto) 0 Plt Morphology Comment ... RBC Morphology Normal morphology Sodium 137 Potassium 3.9 Chloride 104 Carbon Dioxide 30 BUN 38 H Creatinine 1.03 Estimated GFR > 60.0 BUN/Creatinine Ratio 36.9 H Glucose 178 H Calcium 9.1 Total Bilirubin 0.6 AST 40 ALT 48 Alkaline Phosphatase 53 Total Protein 6.3 Albumin 3.6 Globulin 2.7 Albumin/Globulin Ratio 1.3 [facility] Medical History Dyslipidemia Hypertension Hypothyroid Obesity (BMI 30.0-34.9) Spondylosis without myelopathy or radiculopathy, lumbosacral region Surgical History History of left shoulder replacement S/P CABG x 4 (~2014) Family History Father Heart disease Stroke Mother Heart disease Diabetes mellitus Social History household members: spouse Smoking Status: Former smoker Assessment & Plan Assessment & Plan narrative: Acute COVID-19 with acute dehydration and renal failure -presents with loss of appetite, loss of taste and weakness and AVEL supportive of acute volume depletion -lactate normal -provided IV volume repletion, NS 1 L bolus -NS 100 cc/hour, discontinued IV fluids 08/29 as patient taking adequate p.o. -diet as tolerated -patient had a home O2 eval, she desaturated to 83%, patient require 4 L. -as he became significantly bradycardic the remdesivir was held, his metoprolol was held, he continues on Decadron unfortunately this appears to be making the patient a bit agitated 2. Acute hypoxic respiratory failure with mild COVID-19 pneumonia -initial O2 sat 89%, current sat 88-90% on room air and patient is not in respiratory distress -no infiltrate on x-ray could be clouded by dehydration, he did have some crackles on exam -received remdesivir and dexamethasone in the ED -continue remdesivir and dexamethasone but probably will not need a full course -supplemental O2 as needed to keep O2 sat >= 88% -influenza a and B negative -remdesivir held given significant bradycardia 3.? Acute kidney injury, prerenal, resolving -initial BUN 58, creatinine 1.87 in setting of decreased p.o. intake for the past week -provided IV hydration -monitor lytes, BUN and creatinine -holding patient's Celebrex, HCTZ and losartan -will continue to hold medications 4. History of coronary artery disease, status post CABG -stable, intermediate troponin findings not of too much concern in setting of renal failure and acute illness -EKG:? NSR, LVH, anterolateral ST and T-wave abnormality which is unchanged from recent EKG on 07/25/21 -continue aspirin 81 mg q.d., atorvastatin 10 mg q.d., metoprolol succinate 75 mg b.i.d. per home routine -sees Dr. Shaver for cardiology -telemetry monitoring -decreased beta-rosanna, his heart rate improved will resume his usual dosing Will discontinue remdesivir 5. Hypothyroidism -continue levothyroxine 125 mcg q.d. per home routine 6.? GERD -continue PPI per home routine 7. Acute delirium -likely multifactorial, secondary to baseline dementia in addition to steroid -will continue b.i.d. Seroquel, and as needed Haldol -the goal will be to discharge patient home tomorrow on oxygen if tolerated Time Spent With Patient Critical Care time: I spent a total of [] minutes of critical care time on this patient's care today; this time is exclusive of procedural time.
--- NOTE | 2021-08-31 18:12 | PC.NURSE ---
0900- Pt is awake/alert/confused. Able to state name and . He is able to tell me his 's name. He is unable to identify place/time/situation. Thought process is tangential and perseverative. He is cooperative with assessment and able to follow directions but is forgetful and frequently attempts to get OOB or chair unassisted. Pt is adamant that he is going home today. Pt was able to be weaned to RA with sats 90-95%; however, during home O2 eval was noted to be hypoxic on RA with activity requiring 4L NC with activity. Dr. Biggs reviewed and decision was made to keep pt in hospital. Discussed pt's orientation, confusion, and repeatedly getting up without notifying staff, using call light, or waiting for assistance. Discussed pt's lack of sleep overnight and concern for delerium. Orders received for melatonin HS. Over the course of the afternoon, pt continued to get OOB/chair unassisted despite redirection, reorientation, distraction, use of bed alarm/chair alarm, placing belongings in easy reach. At 1650, pt became agitated and removed telemetry. Pt Informed this RN that he was leaving and began putting his clothes on. Call placed to Dr Biggs x2 with no answer- left voice message to return call. Notified architectural wood model maker that pt is attempting to elope despite above measures. Pt noted to be exiting room without mask and attempting to find an exit. Dr. Biggs arrived to [facility] to discuss plan of care with pt. Pt agreeable to have O2 sat checked at this time and was noted to be 84-89% on RA and reported some shortness of breath. Pt is agreeable to wait to speak with before leaving. Orders received for haldol and seroquel. Pt was agreeable to both. After about 45 minutes, pt reluctantly agreed to lay in bed. But not agreeable to take his shoes off or have any monitoring such as tele/pulse ox reapplied. Notified Dr. Biggs that pt is refusing telemetry. Orders received to ky. 1840- Pt getting OOB unassisted. Walked with pt to BR to void and pt was agreeable to go back to bed at this time despite stating Alright, I'm leaving. Placed bed alarm on. Sitter outside of room for safety.
[2021-08-31] MEDS: MELATONIN 3 MG TABLET 6 MG PO (21:34)
[2021-08-31] MEDS: QUETIAPINE 25 MG TABLET PO (21:34)
[2021-09-01] VITALS (14 sets, daily range): BP systolic 135–155; BP diastolic 79–91; PULSE 58–80; RESP 16–20; TEMP 36.5–36.7; O2SAT 90–95
[2021-09-01 05:45] LABS: Add Manual Diff / Slide Review NO; Basophils Absolute Auto 0 /uL (0-100); Basophils Percent Auto 0.1 % (0-2); Eosinophils Absolute Auto 0 /uL (0-450); Hemoglobin 15.2 g/dL (13.5-17.5); Lymphocytes Absolute Auto 900 /uL (1100-4500); Mean Corpuscular HGB Conc 33.7 % (30-36); Mean Corpuscular Hemoglobin 30.4 PG (26-34); Mean Corpuscular Volume 90.2 fL (80-100); Monocytes Absolute Auto 700 /uL (0-900); Monocytes Percent Auto 10.7 % (3-14); Neutrophils Absolute Auto 4600 /uL (1500-7000); Neutrophils Percent Auto 75.2 % (50-75); Platelet Count 191 X10^3/uL (150-400); Red Cell Distribution Width 12.9 % (11.6-14.8); White Blood Cell Count 6.1 X10^3/uL (4.5-11.0)
[2021-09-01 05:53] LABS: Alanine Aminotransferase 49 IU/L (<50); Albumin 3.6 g/dL (3.5-5.0); Albumin Globulin Ratio 1.3 (1.0-2.8); Alkaline Phosphatase 49 U/L (38-126); Aspartate Aminotransferase 38 IU/L (17-59); Bilirubin Total 0.6 mg/dL (0.2-1.3); Blood Urea Nitrogen 36 mg/dL (9-20); Calcium 9.6 mg/dL (8.4-10.2); Carbon Dioxide 27 mmol/L (22-32); Chloride 106 mmol/L (98-107); Estimated Glomerular Filt Rate > 60.0 mL/min (>60); Globulin 2.7 g/dL (1.7-4.1); Glucose 194 mg/dL (80-110); HEMOLYSIS 25 (0-50); Potassium 4.3 mmol/L (3.4-5.1); Sodium 140 mmol/L (137-145); Total Protein 6.3 g/dL (6.3-8.2)
[2021-09-01 06:02] LABS: NT-proBNP (BNP-Adult 18+) 574 pg/mL (<450)
[2021-09-01] MEDS: INSULIN LISPRO 100 UNIT/ML 3ML VIAL SUBCUT ×4 (09:16→20:13)
[2021-09-01] MEDS: SODIUM CHLORIDE 0.9% FLUSH 10 ML IV ×2 (09:18→20:13)
[2021-09-01] MEDS: ATORVASTATIN 20 MG TABLET 10 MG PO (09:20)
[2021-09-01] MEDS: ENOXAPARIN 40 MG/0.4 ML SYRINGE SUBCUT (09:20)
[2021-09-01] MEDS: ASPIRIN 81 MG CHEW TAB PO (09:20)
[2021-09-01] MEDS: dexAMETHasone 4 MG TABLET 6 MG PO (09:23)
[2021-09-01] MEDS: QUETIAPINE 25 MG TABLET PO ×2 (09:23→20:12)
[2021-09-01] MEDS: METOPROLOL ER 25 MG TABLET 75 MG PO ×2 (09:23→20:11)
--- NOTE | 2021-09-01 10:16 | PC.NURSE ---
Day shift: Paperwork signed and all questions answered. Pt has all personal belongings. scripts sent to Pt's pharmacy electronic. Medicated for pain per OCT. Dressing reinforced prior to d/c. Pt also had a shower today. CMS intact and PPP. Taken to car in by NIELS De La Rosa. Pt's spouse is driving them home. They have boarding pass. Left unit at approx 1015.
--- NOTE | 2021-09-01 14:49 | P.PN_ITS ---
Subjective Subjective Date Patient Seen: 09/01/21 Interval history: Patient is a 75-year-old male admitted to the hospital with COVID pneumonia. He does have a history of dementia, and coronary disease. The patient became quite agitated yesterday and was demanding Ali. He was able to be sedated with Haldol and Seroquel. He slept the evening without difficulty. Today he is, and coop erative. While he continues to say he would like to leave he is willing to stay in the hospital. He denies any cough or shortness of breath. However with ambulation the patient does continue to desaturate. His remdesivir was held for bradycardia yesterday. Heart rate is improved to 80 today, given persistent hypoxia will resume remdesivir and continue his Decadron. Exam Vital Signs (past 8 hours): - 09/01/21 08:00 09/01/21 09:23 09/01/21 09:41 Temperature 98.0 F Pulse Rate 80 80 Respiratory Rate 16 Blood Pressure 150/89 H 150/89 H Pulse Oximetry 92 95 09/01/21 12:00 09/01/21 13:35 Temperature 98.1 F Pulse Rate 78 Respiratory Rate 16 Blood Pressure 135/79 Pulse Oximetry 93 93 Oxygen Delivery Method Room Air Oxygen Flow Rate 3.5 Narrative Exam Narrative: Calm gentleman lying in bed with oxygen in place Resp Other: Lungs: Decreased but clear to auscultation Cardio Other: Cardiac exam: Regular rate and rhythm normal S1-S2 GI Other: Abdomen: Soft nontender nondistended Extrem Other: Extremities: No edema Objective Labs Result Diagrams: 09/01/21 05:24 09/01/21 05:24 Labs: Laboratory Results - last 24 hr 09/01/21 09/01/21 05:24 05:24 WBC 6.1 RBC 5.00 Hgb 15.2 Hct 45.0 MCV 90.2 MCH 30.4 MCHC 33.7 RDW 12.9 Plt Count 191 Neut % (Auto) 75.2 H Lymph % (Auto) 14.0 L Elmore % (Auto) 10.7 Eos % (Auto) 0.0 L Baso % (Auto) 0.1 Neut # (Auto) 4600 Lymph # (Auto) 900 L [place]more # (Auto) 700 Eos # (Auto) 0 Baso # (Auto) 0 Sodium 140 Potassium 4.3 Chloride 106 Carbon Dioxide 27 BUN 36 H Creatinine 1.03 Estimated GFR > 60.0 BUN/Creatinine Ratio 35.0 H Glucose 194 H Calcium 9.6 Total Bilirubin 0.6 AST 38 ALT 49 Alkaline Phosphatase 49 NT-Pro-B Natriuret Pep 574 H Total Protein 6.3 Albumin 3.6 Globulin 2.7 Albumin/Globulin Ratio 1.3 PFSH Medical History Dyslipidemia Hypertension Hypothyroid Obesity (BMI 30.0-34.9) Spondylosis without myelopathy or radiculopathy, lumbosacral region Surgical History History of left shoulder replacement S/P CABG x 4 (~2014) Family History Father Heart disease Stroke Mother Heart disease Diabetes mellitus Social History household members: spouse Smoking Status: Former smoker Assessment & Plan Assessment & Plan narrative: Acute COVID-19 with acute dehydration and renal failure -presents with loss of appetite, loss of taste and weakness and AVEL supportive of acute volume depletion -lactate normal -provided IV volume repletion, NS 1 L bolus -NS 100 cc/hour, discontinued IV fluids 08/29 as patient taking adequate p.o. -diet as tolerated -patient had a home O2 eval, she desaturated to 83%, patient require 4 L. -as he became significantly bradycardic the remdesivir was held, his metoprolol was held, he continues on Decadron unfortunately this appears to be making the patient a bit agitated -patient continues to require 3.5 L of oxygen, will resume remdesivir and follow heart rate closely 2. 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 Acute kidney injury, prerenal, resolving -initial BUN 58, creatinine 1.87 in setting of decreased p.o. intake for the past week -provided IV hydration -monitor lytes, BUN and creatinine -holding patient's Celebrex, HCTZ and losartan -will continue to hold medications 4. History of coronary artery disease, status post CABG -stable, intermediate troponin findings not of too much concern in setting of renal failure and acute illness -EKG:? NSR, LVH, anterolateral ST and T-wave abnormality which is unchanged from recent EKG on 07/25/21 -continue aspirin 81 mg q.d., atorvastatin 10 mg q.d., metoprolol succinate 75 mg b.i.d. per home routine -sees Dr. Shaver for cardiology -telemetry monitoring -decreased beta-rosanna, his heart rate improved will resume his usual dosing 5. Hypothyroidism -continue levothyroxine 125 mcg q.d. per home routine 6.? GERD -continue PPI per home routine 7. Acute delirium -likely multifactorial, secondary to baseline dementia in addition to steroid -will continue b.i.d. Seroquel, and as needed Haldol -the goal will be to discharge patient home tomorrow on oxygen if tolerated Patient is cooperative today, given his persistent hypoxia and less than 5 days of treatment will continue to treat with remdesivir and Decadron, once his hypoxia improved the patient will be discharged home If necessary can discharge with oxygen although the patient has been poorly compliant Time Spent With Patient Critical Care time: I spent a total of [] minutes of critical care time on this patient's care today; this time is exclusive of procedural time.
--- NOTE | 2021-09-01 14:51 | OT.IPNOTE ---
Attempted to see pt for Ot treatment , per nursing pt just used the bathroom earlier with nursing and now resting. Nursing states best to just allow pt to rest at this time. To check on pt tomorrow for OT needs.
[2021-09-01] MEDS: REMDESIVIR 100 MG in SODIUM CHLORIDE 0.9% 230 ML 250 ML IV (15:04)
--- NOTE | 2021-09-01 15:40 | PT-IP ANOTE ---
Attempted to see pt at 15:40, per RN hold PT this PM due to pt sleeping and mobilized recently w/ nursing staff.
--- NOTE | 2021-09-01 15:51 | CM.DPNOTE ---
DCP continued: Cm spoke with patients today to discuss dC plan for the patient as he gets closer to being ready for DC. Patients stated that he struggles with memory issues but it has gotten a lot worse since he was DX with Covid. CM discussed memory care options for the patient as a meterman plan for her to think about. CM gave the patients information about [facility], [facility] and [facility] in both [place] and [place]. She stated she will call them and see if that is something they will be able to do for the patient. CM Verified that she was Okay with the patient DC home with [facility] and possibly with home oxygen when he is medically stable. patients agreed to this plan. [facility] and has accepted the referral will just need DC summary when patient leaves. MARI will continue to follow to assist with any new DC planning needs that may arise. Becki Robison RN Case manger
[2021-09-01] MEDS: MELATONIN 3 MG TABLET 6 MG PO (20:12)
[2021-09-01] MEDS: PANTOPRAZOLE DR 20 MG TABLET PO (21:54)
[2021-09-02] VITALS (18 sets, daily range): BP systolic 131–166; BP diastolic 65–89; PULSE 56–69; RESP 14–20; TEMP 36.5–36.8; O2SAT 91–94
[2021-09-02] MEDS: PANTOPRAZOLE DR 20 MG TABLET PO ×2 (06:09→22:37)
[2021-09-02] MEDS: LEVOTHYROXINE 125 MCG TABLET PO (06:09)
[2021-09-02] MEDS: ASPIRIN 81 MG CHEW TAB PO (09:27)
[2021-09-02] MEDS: ATORVASTATIN 20 MG TABLET 10 MG PO (09:27)
[2021-09-02] MEDS: QUETIAPINE 25 MG TABLET PO ×2 (09:27→20:11)
[2021-09-02] MEDS: dexAMETHasone 4 MG TABLET 6 MG PO (09:28)
[2021-09-02] MEDS: SODIUM CHLORIDE 0.9% FLUSH 10 ML IV ×2 (09:29→22:35)
[2021-09-02] MEDS: ENOXAPARIN 40 MG/0.4 ML SYRINGE SUBCUT (09:29)
[2021-09-02] MEDS: INSULIN LISPRO 100 UNIT/ML 3ML VIAL SUBCUT ×3 (12:12→22:34)
--- NOTE | 2021-09-02 12:45 | PT.IPTN ---
Current Diagnoses COVID-19 (08/29/21) Physical Therapy Treatment Note M2 PT-IP Current Condition Start: 08/30/21 11:56 Freq: NEEDED Status: Active Protocol: Document 08/30/21 16:50 AW (Rec: 08/30/21 17:02 AW [id number]) Physical Therapy Current Condition Current Condition Evaluation Date 08/30/21 Treatment Diagnosis COVID pna; hypoxic respiratory failure; impaired balance and gait Onset Date 08/29/21 M3 PT-IP Subjective Start: 08/30/21 11:56 Freq: NEEDED Status: Active Protocol: Document 09/02/21 12:30 KS (Rec: 09/02/21 13:18 KS [id number]) Subjective Physical Therapy Visit Type Type Treatment Note Visit Start Time 12:30 Visit Stop Time 12:45 Total Visit Minutes 15 Number of CHIEF WHARFINGER Visits 1 Physical Therapy Visit Comments Patient Comments Agreeable to ambulating to chair. M4 PT-IP Mobility and Gait Start: 08/30/21 11:56 Freq: NEEDED Status: Active Protocol: Document 09/02/21 12:30 [place] (Rec: 09/02/21 13:18 KS [id number]) PT-Bed Mobility Assessment Supine to Sit Supine to Sit Standby Assistance Scooting Scooting to Edge of Bed Standby Assistance PT-Transfer Assessment Sit to and From Stand Sit to and from Stand Contact Guard Assistance,1 Person Assistance,Use of Upper Extremities Equipment Transfer Assistive Device Gait Belt,Front Wheeled Walker Orthotic/Prosthetic Devices or Brace: No Transfers Transfer Destination Chair Transfer Technique pt ambulated without AD Transfer Ability Level of Assist Standby Assistance Comments Mobility Comments Pt in bed upon arrival from therapy and agreeable to ambulating around room and getting into chair for lunch. Pt on 2L02 at 92% upon arrival . SBA for sup<>sit, CGA for sit<>Stand w/ FWW. Pt marched in place for 15 seconds but then refused to use FWW for energy conservation and then ambulated ~25ft around room w/ o AD CGA o LOB. O2 descreased to 87% on 2L, instructed pt to sit in chair and cues PLB. O2 increased to 90% and pt denied SOB and left in chair w / all needs in reach. Gait Assessment Gait Gait Assistance Required: Contact Guard Assist Distance (Feet) 25 Able to Maintain Weight Bearing Status Yes During Gait Assistive Devices Assistive Device Gait Belt,Front Wheeled Walker Orthotic/Prosthetic Devices or Brace: No Gait Deviations General Gait Pattern Ataxic,Decreased Stride Length Factors Limiting Gait Function Factors Limiting Gait Function Decreased Activity Tolerance, Decreased Strength,Difficulty Following Directions,Poor Balance,Poor Safety Awareness, Respiratory Distress Comments Gait Comments Please refer to mobility section for details. Stair Climbing Assessment Comments Stair Climbing Comments Not assessed. PT-Balance Assessment Sitting Balance and Reactions Static Sitting Balance Ability Good Dynamic Sitting Balance Ability Good Standing Balance and Reactions Static Standing Balance Ability Fair Dynamic Standing Balance Ability Fair Device Used no AD M5 PT-IP Objective Assessments Start: 08/30/21 11:56 Freq: NEEDED Status: Active Protocol: Document 08/30/21 16:50 AW (Rec: 08/30/21 17:21 AW [id number]) Orientation Orientation/Cognition Level of Alertness Confusional State Orientation Name,Month,Place Language Function Ability No Deficits Noted Safety Awareness Decreased Safety Awareness Memory Description Short Term Impaired Comments Speech content was tangential and pt was a difficult historian. Gross Range of Motion Lower Extremity ROM Assessment Within Functional Limits Strength Lower Extremity Strength Hip 4/5 Knee 4+/5 Ankle 4+/5 Sensation Assessment Sensation Gross Sensation WNL Muscle Tone Muscle Tone WNL Yes M6 PT-IP Treatment Start: 08/30/21 11:56 Freq: NEEDED Status: Active Protocol: Document 09/02/21 12:30 KS (Rec: 09/02/21 13:18 KS [id number]) Physical Therapy Treatment Exercises Exercises Ankle Pumps Education Education Provided Safety M7 PT-IP Assessment and Plan Start: 08/30/21 11:56 Freq: NEEDED Status: Active Protocol: Document 09/02/21 12:30 KS (Rec: 09/02/21 13:18 KS [id number]) PT Summary Assessment and Plan Potential Rehabilitation Potential Fair Summary Impairments Pain,ROM,Strength,Balance, Coordination,Sensation,Tone, Cognition,Bed Mobility, Transfers,Gait,Activity Tolerance Progress Towards Goals Slow Progress due to Activity Tolerance Assessment Summary Pt able to ambulate w/o AD and no LOB, but still desat to 87 % on 2L O2 w/ mobility. Pt limited by decreased O2, but requirining only SBA to CGA throughout treatment. Pt plans to go home w/ spouse to assist. Will continue to assess. Goals Bed Mobility Goal Independent Transfer Goal Independent Gait Goal Independent Gait Distance 150 Other Goals - up/down 5 steps with unilateral rail SBA with SpO2 90% or greater Days to Meet Goals 5 Frequency of Treatment Frequency Of Treatment Once a Day Treatment Plan Physical Therapy Treatment Plan Bed Mobility Training,Transfer Training,Gait Training, Therapeutic Exercise,Balance Retraining,Discharge Planning Precautions Other Precautions COVID (+) Recommendations To Nursing Amount of Assist Needed 1 Person Assist Discharge Recommendations PT Discharge Recommendations Home with Assistance
[2021-09-02] MEDS: REMDESIVIR 100 MG in SODIUM CHLORIDE 0.9% 230 ML 175 ML IV (14:11)
--- NOTE | 2021-09-02 16:19 | OT.IP.TRT ---
Current Diagnoses COVID-19 (08/29/21) Occupational Therapy Treatment Note M2 OT-IP Current Condition Start: 08/31/21 15:22 Freq: Status: Active Protocol: Document 08/31/21 13:58 [facility] (Rec: 08/31/21 15:38 [facility] [id number]) Occupational Therapy Current Condition Current Condition Evaluation Date 08/31/21 Treatment Diagnosis COVID +, confusion Diagnosis Onset Date 08/29/21 M3 OT- IP Subjective and Pain Start: 08/31/21 15:22 Freq: Status: Active Protocol: Document 09/02/21 16:20 [facility] (Rec: 09/02/21 16:27 [facility] [id number]) OT- Subjective Occupational Therapy Visit Type Type Treatment Note Visit Start Time 13:50 Visit Stop Time 14:19 Total Visit Minutes 29 Occupational Therapy Visit Comments Patient Comments Pt wanting to shave. Patient/Caregiver Goals TO go home. OT Pain Assessment Pain When Pain Assessed At Rest Pain Present Pain Present Denied Pain M4 OT- IP ADL's Start: 08/31/21 15:22 Freq: Status: Active Protocol: Document 09/02/21 16:20 [facility] (Rec: 09/02/21 16:27 [facility] [id number]) OT [id number] Comments OT Self-Feeding Comments NOt at meal time. OT ADL-Grooming General Evaluation Grooming Ability Standby Assistance Comments OT Grooming Comments Having to point out the toothbrush in front of him. Pt able to use electric razor to shave. OT ADL-Oral Care General Eval Oral Care Ability Independent OT ADL-Toileting Comments OT Toileting Comments Pt did not perform. OT ADL-Bathing Comments OT Bathing Comments Not performed. M6 OT- IP Functional Cognition Start: 08/31/21 15:22 Freq: Status: Active Protocol: Document 09/02/21 16:20 [facility] (Rec: 09/02/21 16:27 [facility] [id number]) Cognitive Factors Limiting Selfcare Function Cognitive Ability Level of Alertness Alert,Confusional State Patient Orientation Name Attention Span Ability Capable of Focused Attention, Capable of Sustained Attention Ability to Follow Commands Able to Follow One Step Commands with Increased Time, Able to Follow One Step Commands with Repetition Memory Description Short Term Impaired,Working Impaired Safety Awareness Underestimates Need for Assistance Cognitive Comments Cognitive Assessment Comments Pt is pleasant but still does not know where he is at, having to repeat to the pt that he is in a hospital 5 times before able to recall. Pt able to state and know that he has pneumonia now. M7 OT- IP Mobility and Balance Start: 08/31/21 15:22 Freq: Status: Active Protocol: Document 09/02/21 16:20 [facility] (Rec: 09/02/21 16:27 [facility] [id number]) OT-Transfer Assessment Sit to and From Stand Sit to and from Stand Independent Transfers Transfer Ability Standby Assistance Technique Transfer Destination Chair Comments Mobility Comments Pt able to walk in the room with close SBA and assist to manage O2 and IV tubing. OT- Balance Assessment Sitting Balance and Reactions Static Sitting Balance Ability Normal Dynamic Sitting Balance Ability Normal Standing Balance and Reactions Static Standing Balance Ability Normal Dynamic Standing Balance Ability Good Comments Other Balance Tests/Deviations/Treatment Pt O2 on 4L and at rest 94% : and after standing at the sink form 10 minutes O2 dropped to 84% and able to return to 91% after 3 minutes of rest. M8 OT- IP Objective Assessments Start: 08/31/21 15:22 Freq: Status: Active Protocol: Document 08/31/21 13:58 [facility] (Rec: 08/31/21 15:38 [facility] [id number]) OT Gross Range of Motion Upper Extremity Range of Motion Assessment Within Functional Limits OT Strength Upper Extremity Strength Assessment Within Functional Limits OT- Coordination Assessment Upper Extremity Finger to Nose Test Within Functional Limits OT-Muscle Tone Assessment Muscle Tone WNL Yes M9 OT- IP Assessment and Plan Start: 08/31/21 15:22 Freq: Status: Active Protocol: Document 09/02/21 16:20 [facility] (Rec: 09/02/21 16:27 [facility] [id number]) OT Summary Assessment and Plan Potential Rehabilitation Potential Fair Analytic Complexity at Evaluation Moderate Summary OT Impairments Balance,Functional Cognition, Functional Mobility,Dressing, Toileting,Bathing,Toilet Transfers,Shower Transfers, Activity Tolerance Progress Towards Goals Progressing Toward Goals Assessment Summary Pt able to follow commands for mobility and ADL needs. Pt's O2 level on 4L still drops with activity from 94% -to 84% but able to recover after several minutes. Goals Grooming Goal Independent Dressing Goal Independent Toileting Goal Standby Assistance Bathing Goal Standby Assistance Toilet Transfer Goal Independent Shower Transfer Goal Independent Days to Meet Goals 5 Frequency of Treatment Frequency Of Treatment Once a Day Treatment Plan OT Treatment Plan ADL Training,Functional Cognition Training,Functional Mobility,Patient/Family Education,Discharge Planning Other Treatment Recommendations and Next shower Treatment Focus Discharge Recommendations OT Discharge Recommendations Home with 24/7 Assist Available Home Equipment Needs shower chair Transportation Needs at Discharge Private Vehicle
--- NOTE | 2021-09-02 17:10 | PM.PN.1 ---
Subjective Subjective Date Patient Seen: 09/02/21 Interval history: The patient is a 75-year-old male admitted to the hospital with COVID pneumonia. He continues to be hypoxic requiring 2-3 L to maintain his oxygenation. He does have an issue with dementia, however the patient has been calm and not agitated. He denies any cough or any complaints Exam Vital Signs (past 8 hours): - 09/02/21 09:28 09/02/21 09:41 09/02/21 11:04 Temperature Pulse Rate 58 L Respiratory Rate Blood Pressure Pulse Oximetry 91 92 09/02/21 12:00 09/02/21 13:10 Temperature 97.9 F Pulse Rate 65 Respiratory Rate 16 Blood Pressure 144/82 H Pulse Oximetry 92 Oxygen Delivery Method Nasal Cannula Oxygen Flow Rate 2 Narrative Exam Narrative: Calm pleasant male sitting in a chair in no distress Resp Other: Lungs: Decreased breath sounds Cardio Other: Cardiac exam: Regular rate and rhythm normal S1-S2 GI Other: Abdomen: Soft nontender nondistended Extrem Other: Extremities: No edema Objective Labs Result Diagrams: 09/01/21 05:24 09/01/21 05:24 COUNT INCLUDES THE [facility] Medical History Dyslipidemia Hypertension Hypothyroid Obesity (BMI 30.0-34.9) Spondylosis without myelopathy or radiculopathy, lumbosacral region Surgical History History of left shoulder replacement S/P CABG x 4 (~2014) Family History Father Heart disease Stroke Mother Heart disease Diabetes mellitus Social History household members: spouse Smoking Status: Former smoker Assessment & Plan Assessment & Plan narrative: Acute COVID-19 with acute dehydration and renal failure -presents with loss of appetite, loss of taste and weakness and AVEL supportive of acute volume depletion -tolerating remdesivir without difficulty -will continue for 5 days remdesivir and Decadron -patient continues to require 3.5 L of oxygen, will resume remdesivir and follow heart rate closely 2. Acute hypoxic respiratory failure with mild COVID-19 pneumonia -initial O2 sat 89%, current sat 88-90% on room air and patient is not in respiratory distress -no infiltrate on x-ray could be clouded by dehydration, he did have some crackles on exam -received remdesivir and dexamethasone in the ED -continue remdesivir and dexamethasone but probably will not need a full course -supplemental O2 as needed to keep O2 sat >= 88% 3.? Acute kidney injury, prerenal, resolving -initial BUN 58, creatinine 1.87 in setting of decreased p.o. intake for the past week -provided IV hydration -monitor lytes, BUN and creatinine -holding patient's Celebrex, HCTZ and losartan 4. History of coronary artery disease, status post CABG -stable, intermediate troponin findings not of too much concern in setting of renal failure and acute illness -EKG:? NSR, LVH, anterolateral ST and T-wave abnormality which is unchanged from recent EKG on 07/25/21 -continue aspirin 81 mg q.d., atorvastatin 10 mg q.d., metoprolol succinate 75 mg b.i.d. per home routine -sees Dr. Shaver for cardiology -telemetry monitoring -decreased beta-rosanna, 5. Hypothyroidism -continue levothyroxine 125 mcg q.d. per home routine 6.? GERD -continue PPI per home routine 7. Acute delirium -likely multifactorial, secondary to baseline dementia in addition to steroid -will continue b.i.d. Seroquel, and as needed Haldol Patient is cooperative today, given his persistent hypoxia and less than 5 days of treatment will continue to treat with remdesivir and Decadron, once his hypoxia improved the patient will be discharged home If necessary can discharge with oxygen although the patient has been poorly compliant Patient continues to be significantly hypoxic, he likely will need to discharge home on oxygen Time Spent With Patient Critical Care time: I spent a total of [] minutes of critical care time on this patient's care today; this time is exclusive of procedural time.
[2021-09-02] MEDS: LOSARTAN 25 MG TABLET PO (17:37)
[2021-09-02] MEDS: MELATONIN 3 MG TABLET 6 MG PO (20:10)
[2021-09-02] MEDS: METOPROLOL ER 25 MG TABLET 50 MG PO (20:11)
[2021-09-03] VITALS (7 sets, daily range): BP systolic 110–165; BP diastolic 56–86; PULSE 56–70; RESP 17–19; TEMP 36.6; O2SAT 88–92
[2021-09-03] MEDS: LEVOTHYROXINE 125 MCG TABLET PO (06:26)
[2021-09-03] MEDS: PANTOPRAZOLE DR 20 MG TABLET PO (06:26)
[2021-09-03 06:42] LABS: Basophils Absolute Auto 0 /uL (0-100); Basophils Percent Auto 0.3 % (0-2); Eosinophils Absolute Auto 0 /uL (0-450); Eosinophils Percent Auto 0.1 % (2-4); Hematocrit 46.3 % (41-53); Hemoglobin 15.9 g/dL (13.5-17.5); Lymphocytes Absolute Auto 1000 /uL (1100-4500); Lymphocytes Percent Auto 9.3 % (25-40); Mean Corpuscular HGB Conc 34.3 % (30-36); Mean Corpuscular Hemoglobin 30.5 PG (26-34); Monocytes Absolute Auto 800 /uL (0-900); Monocytes Percent Auto 7.8 % (3-14); Neutrophils Absolute Auto 8800 /uL (1500-7000); Neutrophils Percent Auto 82.5 % (50-75); Platelet Count 225 X10^3/uL (150-400); White Blood Cell Count 10.6 X10^3/uL (4.5-11.0)
[2021-09-03 06:43] LABS: Add Manual Diff / Slide Review SLIDE REVIEW
[2021-09-03 06:59] LABS: BUN Creatinine Ratio 31.6 (6-22); Blood Urea Nitrogen 31 mg/dL (9-20); Carbon Dioxide 30 mmol/L (22-32); Chloride 103 mmol/L (98-107); Estimated Glomerular Filt Rate > 60.0 mL/min (>60); Glucose 141 mg/dL (80-110); HEMOLYSIS 24 (0-50); Potassium 4.1 mmol/L (3.4-5.1); Sodium 137 mmol/L (137-145)
[2021-09-03 07:42] LABS: RBC Morphology Normal Morphology
--- NOTE | 2021-09-03 08:20 | P.DS_ITS ---
History of Present Illness History of Present Illness Date Patient Seen: 09/03/21 Time Patient Seen: 08:20 Chief complaint: not eating, extreme memory loss, shaky Narrative: Patient is a 75-year-old male with history of CAD, status post 4 vessel CABG in 2015, hypertension, hyperlipidemia, hypothyroidism lumbosacral spondylosis presents with 5 to six-day history of loss of appetite, diminished oral intake, extreme fatigue.? He states lost appetite and can not taste food.? He denies chest pain, cough or dyspnea although spouse noted that he seemed out of breath with exertion.? Denies nausea, vomiting or diarrhea.? Denies fever.? His spouse has also been concern due to patient's confusion seeming to mumble things and be less aware of surroundings.? Also his balance has been off with stumbling gait but denies fall. On ER evaluation, initial vitals were temp 97.8?, pulse ox 89% room air, BP 110/66, pulse 60, respiratory rate 18.? WBC normal.? He is in acute renal failure with BUN 58 and creatinine 1.87 versus recent previous creatinine 0.9.? Lactate is normal.? He has mild elevation of liver enzymes.? He has indeterminate mild troponin elevation 0.036 then 0.035 which is stable.? His SARs COVID 2 PCR is positive.? Head CT without acute findings.? Chest x-ray without infiltrate.? Patient has received 2 shots for COVID vaccination but has not been boosted. Discharge Providers Provider Date of admission: 08/29/21 15:41 Discharge Date: 09/03/21 Primary care physician: DEEDEE Greenberg Consults: 08/29/21 18:18 Consult to Physical Therapy Evaluate & Treat Comment: Physician Instructions: Evaluate and Treat 08/29/21 18:23 Consult to Dietitian, Adult Routine Comment: Reason For Exam: covid +, poor intake, protocol for nutrition asses 08/31/21 12:17 Consult to Occupational Therapy Evaluate & Treat Comment: Cognitive assessment please Physician Instructions: Evaluate and treat 08/31/21 12:51 Consult to Home Health Routine Comment: COVID+, new diabetes dx, hypoxic resp failure Reason For Exam: Set up RN/PT/OT for discharge home Discharge provider: Rachell Biggs MD Summary Hospital Course Discharge Diagnosis: 1. Acute hypoxic respiratory failure secondary to COVID 2. Dementia with behavioral disturbance 3. Acute metabolic encephalopathy, likely related to COVID pneumonia 4. Hypertension 5. Hyperlipidemia 6. Hypothyroidism 7. Coronary disease, status post CABG in 2015 Hospital Course: Patient was admitted to the hospital for treatment of COVID pneumonia. He initially was not hypoxic, however his oxygen saturation dropped to 88-89% at rest, he require 4 L when ambulating. He had no cough, he denied any shortness of breath, however the patient is somewhat confused. At 1 point he got significantly agitated and demanded to leave. However after subsequent treatmen t he improved. Patient remained on 4 L of oxygen, he denied any cough, had no further fever, and no shortness of breath when at rest. He made slow but steady progress. The patient was treated with 5 days of remdesivir and Decadron, the remdesivir did cause some, bradycardia, however this improved with holding his metoprolol. The patient made steady progress and was deemed appropriate for discharge home. He will require 4 L of oxygen at home until his oxygenation improves. Status at Discharge Cognitive/behavioral status at discharge: at baseline, confused Functional status at discharge: independent ambulation Overall status at discharge: patient is progressing back to baseline Exam Vital Signs (past 8 hours): - 09/03/21 02:00 09/03/21 04:00 09/03/21 06:00 Temperature 97.8 F Pulse Rate 59 L Respiratory Rate 18 Blood Pressure 155/86 H Pulse Oximetry 91 91 91 Oxygen Delivery Method Nasal Cannula Oxygen Flow Rate 3.5 Narrative Exam Narrative: Pleasant male lying in bed in no obvious distress Resp Other: Decreased breath sounds with scattered crackles peripherally at the bases Cardio Other: Regular rate and rhythm normal S1-S2 GI Other: Abdomen soft nontender nondistended Extrem Other: No edema Psych Other: Patient is calm and cooperative, he is confused, thought process and thought content not normal, his mood and affect has improved Objective Labs Result Diagrams: 09/03/21 06:00 09/03/21 06:00 Labs: Laboratory Results - last 24 hr 09/03/21 09/03/21 06:00 06:00 WBC 10.6 RBC 5.20 Hgb 15.9 Hct 46.3 MCV 89.0 MCH 30.5 MCHC 34.3 RDW 13.0 Plt Count 225 Neut % (Auto) 82.5 H Lymph % (Auto) 9.3 L [place] % (Auto) 7.8 Eos % (Auto) 0.1 L Baso % (Auto) 0.3 Neut # (Auto) 8800 H Lymph # (Auto) 1000 L [place] # (Auto) 800 Eos # (Auto) 0 Baso # (Auto) 0 RBC Morphology Normal morphology Sodium 137 Potassium 4.1 Chloride 103 Carbon Dioxide 30 BUN 31 H Creatinine 0.98 Estimated GFR > 60.0 BUN/Creatinine Ratio 31.6 H Glucose 141 H Calcium 10.0 PFSH Medical History Dyslipidemia Hypertension Hypothyroid Obesity (BMI 30.0-34.9) Spondylosis without myelopathy or radiculopathy, lumbosacral region Surgical History History of left shoulder replacement S/P CABG x 4 (~2014) Family History Father Heart disease Stroke Mother Heart disease Diabetes mellitus Social History household members: spouse Smoking Status: Former smoker Discharge Assessment & Plan Assessment and Plan Assessment: 1. Acute hypoxic respiratory failure secondary to COVID 2. Dementia with behavioral disturbance 3. Acute metabolic encephalopathy, likely related to COVID pneumonia 4. Hypertension 5. Hyperlipidemia 6. Hypothyroidism 7. Coronary disease, status post CABG in 2014 Plan of Treatment: Discharge home on 4 L of oxygen [facility] to see the patient Follow-up with PCP in 1-2 weeks Discharge Plan Discharge Plan Patient Disposition: Home Health Service Transfer to: [facility] Provider Discharge Comment: You were treated for COVID-19 related dehydration, kidney failure and pneumonia. Blood work also showed elevated glucose readings which indicate you have diabetes (fasting glucose 176, A1c 7.3%). This can be diet controlled at this time but you will need to follow up with PCP. Discharge orders & Medications Prescriptions: New melatonin 3 mg Tablet 6 mg PO BEDTIME Qty: 30 0RF quetiapine 25 mg Tablet 25 mg PO BID Qty: 30 0RF Continued hydrochlorothiazide 25 mg tablet 25 mg PO DAILY Qty: 30 0RF levothyroxine [Synthroid] 125 mcg tablet 125 mcg PO DAILY 0RF tramadol 50 mg tablet 50 - 100 mg PO Q8H PRN (Reason: pain) 0RF metoprolol succinate 50 mg tablet extended release 24 hr 75 mg PO BID 0RF Label Comments: take 1 AND 1/2 tablets by mouth twice a day acetaminophen [Tylenol] 325 mg Tablet 650 mg PO QAM 0RF atorvastatin 10 mg tablet 10 mg PO DAILY 0RF aspirin 81 mg tablet,chewable 81 mg PO DAILY 0RF omeprazole 20 mg capsule,delayed release(DR/EC) 20 mg PO BID 0RF losartan 25 mg tablet 25 mg PO DAILY 0RF acetaminophen [Tylenol] 325 mg tablet 650 mg PO Q6H PRN (Reason: Pain (Scale Score 1-3)) 0RF celecoxib [Celebrex] 200 mg capsule 200 mg PO DAILY Qty: 30 2RF Follow up/Referrals: Ekaterina Marquis ARNP [Primary Care Provider] - Diet/Activity/Treatments Diet: Low-sodium and Low-cholesterol Skin/Wound/Dressing Care Report to your healthcare provider any signs of infection, such as:: chills, fever Discharge Data Primary Care Provider: Ekaterina Marquis
[2021-09-03] MEDS: ENOXAPARIN 40 MG/0.4 ML SYRINGE SUBCUT (09:42)
[2021-09-03] MEDS: LOSARTAN 25 MG TABLET PO (09:42)
[2021-09-03] MEDS: ATORVASTATIN 20 MG TABLET 10 MG PO (09:42)
[2021-09-03] MEDS: QUETIAPINE 25 MG TABLET PO (09:43)
[2021-09-03] MEDS: ASPIRIN 81 MG CHEW TAB PO (09:43)
[2021-09-03] MEDS: METOPROLOL ER 25 MG TABLET 50 MG PO (09:43)
[2021-09-03] MEDS: dexAMETHasone 4 MG TABLET 6 MG PO (09:43)
[2021-09-03] MEDS: SODIUM CHLORIDE 0.9% FLUSH 10 ML IV (10:04)
--- NOTE | 2021-09-03 10:28 | CM.DPC ---
DCP Cont: Patient is to be discharged home today. Have discharge orders, he will be getting home oxygen ordered by Ravindra. Went ahead and called [facility] and spoke to Reginald. Let her know that he is being discharged. She indicated, she did not have orders and face to face in her possession. Faxed her over the DC summary, face sheet, face to face, and orders. P: Patient is discharging home today with [facility]. Winsome Coffman RN/Rolfer
--- NOTE | 2021-09-03 11:22 | PC.NURSE ---
Addendum entered by Georgiana Castillo R.N. 09/03/21 13:15: P:t O2 needs set up by RT D/C instructions given w/apparent understanding. Escorted by staff via W/C, with O2 to waiting vehicle. D/C in stable condition Original Note: Pt sitting in chair, Orders recieved for discharge, Awaiting home O2 arrangements. SpO2 88-910% 5L Will assess.
== END 2021-09-03 13:17 | disposition home or self-care (01) | DRG 177 ==
LOC: ED 14:40 → ICU 18:14 → AC 08-31 08:16 → ICU 08-31 08:16
PROVIDERS: Internal Medicine; Admitting Provider Internal Medicine; Emergency Provider Emergency Medicine; PCP Nurse Practitioner; Referring Provider Emergency Medicine; Visit Provider Internal Medicine
DX: U07.1 COVID-19 (principal); J12.82 Pneumonia due to coronavirus disease 2019; J96.01 Acute respiratory failure with hypoxia; G93.41 Metabolic encephalopathy; N17.9 Acute kidney failure, unspecified; F03.91 Unspecified dementia, unspecified severity, with behavioral disturbance; E86.0 Dehydration; E11.9 Type 2 diabetes mellitus without complications; I25.10 Atherosclerotic heart disease of native coronary artery without angina pectoris; E03.9 Hypothyroidism, unspecified; K21.9 Gastro-esophageal reflux disease without esophagitis; R00.1 Bradycardia, unspecified; T50.995A Adverse effect of other drugs, medicaments and biological substances, initial encounter; I10 Essential (primary) hypertension; E78.5 Hyperlipidemia, unspecified; Z95.1 Presence of aortocoronary bypass graft; Z87.891 Personal history of nicotine dependence
CPT/HCPCS: 36415; 70450; 71045; 80048; 80053; 80305; 80320; 80329; 81001; 82550; 82553; 82962; 83036; 83605; 83880; 84146; 84443; 84484; 85025; 85610; 85730; 87040; 87502; 87635; 87797; 93005; 93010; 94618; 94760; 96365; 96375; 97116; 97162; 97166; 97530; 97535; 99284; 99285; C9803; G0480; J1100; J1630; J1650; J1815

== ENCOUNTER → 2022-05-01 10:06 | Outpatient (CLI) | payer MEDICARE, OTHER, SELFPAY ==
[2021-08-29 18:19] VITALS: BMI 28.0
[2022-05-01 11:53] LABS: BUN Creatinine Ratio 18.8 (6-22); Blood Urea Nitrogen 25 mg/dL (9-20); Calcium 9.9 mg/dL (8.4-10.2); Carbon Dioxide 30 mmol/L (22-32); Chloride 98 mmol/L (98-107); Estimated Glomerular Filt Rate 55 mL/min (>60); Glucose 114 mg/dL (80-110); HEMOLYSIS < 15 (0-50); Potassium 4.4 mmol/L (3.4-5.1); Sodium 140 mmol/L (137-145)
== END ==
PROVIDERS: PCP Nurse Practitioner; Referring Provider Nurse Practitioner Family; Visit Provider Nurse Practitioner Family
DX: I25.810 Atherosclerosis of coronary artery bypass graft(s) without angina pectoris (principal)
CPT/HCPCS: 36415; 80048

== ENCOUNTER → 2024-02-13 10:21 | Outpatient (CLI) | payer MEDICARE, OTHER, SELFPAY ==
[2021-08-29 18:19] VITALS: BMI 28.0
--- NOTE | 2024-02-13 10:24 | DI.ECHO.S_ITS ---
[facility] : : [id number] : : [place] : : [id number] : : Phone: [phone] Echocardiogram Report + + :Name: KEILY LEVY Study Date: 02/13/2024 Height: 71 in : :[facility] ReadingLocation: Weight: 187 lb : : Gender: Male BSA: 2.0 m2 : :: 1945 Age: 78 yrs BP: 122/85 mmHg: :Reason For Study: HYPERTENSION : :Ordering Physician: [place], : :SHANICE Ledezma Performed By: Jaimee Quach : :Referring: SHANICE PORTER W : + + Interpretation Summary The left ventricle is normal in size. The left ventricular ejection fraction is normal. The ejection fraction is estimated to be 55-60%. Previous LVEF 50 to 55%. The right ventricle is mild to moderately dilated. The right ventricular systolic function is normal. There is mild mitral regurgitation. There is mild tricuspid regurgitation. The right ventricular systolic pressure is estimated to be at least 38 mmHg based on an estimated right atrial pressure of 3 mm Hg. Previously 35 mmHg. Procedure: A two-dimensional transthoracic echocardiogram with color flow and Doppler was performed. The study quality was technically adequate. Comparison is made with the echocardiogram of 08/22/2021. The heart rate ranged between 54-65 bpm during the study. The patient was in normal sinus rhythm during the exam. Left Ventricle: The left ventricle is normal in size. Left ventricular wall thickness is mildly increased. There is no thrombus. The ejection fraction is estimated to be 55-60%. The left ventricular ejection fraction is normal. There is basal inferior wall hypokinesis. This is unchanged compared to the previous study. Diastolic parameters suggest a relaxation abnormality of the left ventricle, consistent with probable normal filling pressures. Right Ventricle: The right ventricle is mild to moderately dilated. The right ventricular systolic function is normal. Atria: The left atrial size is normal. The right atrium is borderline dilated. There is no Doppler evidence for an interatrial shunt. Mitral Valve: There is mild mitral annular calcification. There is mild mitral regurgitation. Aortic Valve: The aortic valve is trileaflet. The aortic valve opens well. There is no aortic valve stenosis. No aortic regurgitation is present. Tricuspid Valve: The tricuspid valve is normal. There is mild tricuspid regurgitation. The right ventricular systolic pressure is estimated to be at least 38 mmHg based on an estimated right atrial pressure of 3 mm Hg. Pulmonic Valve: The pulmonic valve leaflets are thin and pliable; valve motion is normal. There is trace pulmonic regurgitation. Great Vessels: The aortic root is normal size. The dimensions of the ascending aorta are normal. The IVC is of normal diameter and collapses greater than 50% with a sniff. This suggests a low right atrial pressure of 3 mm Hg. Pericardium/ Pleura There is no pericardial effusion. There is no pleural effusion. MMode/2D Measurements & Calculations LVIDd: 5.3 cm LVOT diam: 2.1 cm LVIDs: 3.7 cm Ao root diam: 3.7 cm FS: 29.1 % asc Aorta Diam: 3.8 cm IVSd: 1.1 cm Ao Arch Diam (Prox Trans): 3.3 cm LVPWd: 1.1 cm LV carrasquillo. diameter/BSA (cm/m^2): 2.6 LV sys. diameter/BSA (cm/m^2): 1.8 LA A2 area: 18.5 cm2 RA long axis: 6.8 cm LA A4 area: 23.7 cm2 RA area: 23.7 cm2 LA length (vol): 6.9 cm RA vol: 69.8 ml LA vol: 53.7 ml RA : 34.0 ml/m2 LA vol index: 26.2 ml/m2 IVC diam: 1.3 cm RVD1 (basal): 4.7 cm TAPSE: 1.6 cm Doppler Measurements & Calculations Ao V2 max: 116.4 cm/sec LVOT Max Loco: 66.8 cm/sec Ao V2 mean: 78.0 cm/sec LV V1 max P.8 mmHg Ao max P.4 mmHg LV V1 VTI: 16.8 cm Ao mean P.9 mmHg KYLE(I,D): 2.4 cm2 Ao V2 VTI: 23.7 cm KYLE(V,D): 2.0 cm2 sev ratio: 0.71 KYLE indexed to BSA (cm^2/m^2): 1.2 MV E max loco: 34.2 cm/sec TR max loco: 297.0 cm/sec MV A max loco: 39.6 cm/sec TR max P.3 mmHg MV E/A: 0.86 PA pr(Accel): 41.3 mmHg Med Peak E' Loco: 4.7 cm/sec E/E' med: 7.2 Lat Peak E' Loco: 9.0 cm/sec E/E' lat: 3.8 E/e' average: 5.5 MV dec time: 0.41 sec SVLVOT): 57.3 ml Reading Physician:04:55 PM
== END ==
LOC: NUCM 10:22
PROVIDERS: PCP Nurse Practitioner; Referring Provider Nurse Practitioner; Visit Provider Nurse Practitioner
DX: I25.810 Atherosclerosis of coronary artery bypass graft(s) without angina pectoris (principal); I10 Essential (primary) hypertension; I08.1 Rheumatic disorders of both mitral and tricuspid valves
CPT/HCPCS: 93306

== ENCOUNTER → 2024-03-24 | Outpatient (CLI) | payer MEDICARE, OTHER, SELFPAY ==
[2021-08-29 18:19] VITALS: BMI 28.0
--- NOTE | 2024-03-24 23:31 | DI.NM.S_ITS ---
DATE OF SERVICE: 03/24/2024 PROCEDURE: Pharmacological perfusion study. INDICATIONS: Bypass surgery in 2015, hypertension, diabetes, hyperlipidemia, shortness of breath. RADIOPHARMACEUTICAL: 27.5 millicuries technetium-99m Myoview IV was injected at stress and 11.3 millicuries technetium-99m Myoview IV was injected at rest. CARDIAC STRESS: The patient underwent IV Lexiscan perfusion study under the supervision of an attending staff using standard IV Lexiscan as per protocol. The patient remained hemodynamically stable. Resting blood pressure of 136/84. Baseline rhythm sinus with anterolateral asymmetrical T-wave inversion. Intermittent resting PVCs were seen as well. During stress no new convincing ischemic changes or worsening ventricular arrhythmias. No chest discomfort. The patient had minimal dyspnea. RAW DATA: There is increased subdiaphragmatic activity. GATED STUDY: Resting LV ejection fraction 68% and stress LV ejection fraction 73%. There appears to be basal inferolateral hypokinesis. MYOCARDIAL PERFUSION SCAN: Stress supine, resting supine and stress prone images were compared to each other. There appears to be predominantly fixed, small size, mildly decreased perfusion of base to mid inferolateral wall without any significant reversible ischemia. 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 Preserved LV function. No chest pain. Overall, low-risk myocardial perfusion scan. The patient had a perfusion study in April 2021, at that time also had similar fixed defect of base to mid inferolateral wall. Overall, low-risk myocardial perfusion scan. Enio Copeland - ORTEGA/beti/AY doc#: [id number]/job#: [id number] dd: 03/24/2024 16:52:00 dt: 03/24/2024 23:16:00 DICTATING MD/COPIES TO: Car Shaver MD COPIES MNE: [id number];
== END ==
LOC: NUCM 09:38
PROVIDERS: PCP Nurse Practitioner Family; Referring Provider Nurse Practitioner; Visit Provider Nurse Practitioner
DX: I25.810 Atherosclerosis of coronary artery bypass graft(s) without angina pectoris (principal); R94.39 Abnormal result of other cardiovascular function study
CPT/HCPCS: 78452; 93017; A9502; J2785